=== PATIENT | female | born 1995 | race Caucasian/White ===

== ENCOUNTER 2016-07-18 05:49 | Emergency (ER) | payer OTHER ==
[~2016-07-18] VITALS: Ht 157.5 cm; Wt 63.0 kg
[2016-07-18 05:54] VITALS: Ht 157.5 cm; Wt 63.0 kg
[2016-07-18] MEDS ORDERED: morphine 4 MG/ML VIAL IV STA ×2 (06:23→08:18)
[2016-07-18] MEDS ORDERED: SOD CHLORIDE 0.9% 1,000 ML IV STA (06:23)
[2016-07-18] MEDS ORDERED: ONDANSETRON 4 MG INJ IV STA ×2 (06:23→08:18)
[2016-07-18] MEDS ORDERED: KETOROLAC 15 MG INJ IV STA ×2 (06:23→08:29)
--- NOTE | 2016-07-18 06:43 | ERD ---
ER Documentation Chief Complaint Date/Time DATE: 07/18/16 TIME: 06:42 Chief Complaint abdominal pain x2 days HPI This is a 21 year old female presenting to the emergency department complaining of lower abdominal pain for two days. Patient rates the pain as 8/10,constant and worsening. She states it started to feel like pressure. She denies nausea, vomiting. She states she had one episode of diarrhea since Monday, she has not had a bowel movement since then. She admits to having painful urination. Denies fever, hematuria, flank pain. Her last menstrual period was June 21. She has not taken any medications today, she states she took advil last night without relief. ROS All systems reviewed and are negative except as per history of present illness. Medications Home Meds Active Scripts Hydrocodone/Acetaminophen ([place] 5-325 Tablet) 1 Each Tablet, 1-2 TAB PO Q6H Y for PAIN, #20 TAB Prov:MAX PEACE PA-C 07/18/16 Allergies Allergies: Coded Allergies: Penicillins (Verified Allergy, Unknown, 07/18/16) PMhx/Soc Medical and Surgical Hx: pt denies Medical Hx, pt denies Surgical Hx History of Surgery: No Anesthesia Reaction: No Hx Neurological Disorder: No Hx Respiratory Disorders: No Hx Cardiac Disorders: No Hx Psychiatric Problems: No Hx Miscellaneous Medical Probl: No Hx Alcohol Use: No Hx Substance Use: No Hx Tobacco Use: No Smoking Status: Never smoker Physical Exam Vitals Vital Signs Date Time Temp Pulse Resp B/P Pulse Ox O2 Delivery O2 Flow Rate FiO2 07/18/16 08:30 98.1 71 16 100/61 100 Room Air 07/18/16 05:54 98.5 118 20 108/81 98 Physical Exam GENERAL: well-developed/well-nourished, in no apparent distress, non-toxic appearing HENT: NC/AT, moist mucous membranes EYES: Conjunctiva normal NECK: Supple, no lymphadenopathy PULM: CTA bilaterally, no rales, rhonchi, or wheezing heard CV: Normal S1S2, RRR, good capillary refill GI: Soft, non-distended, tender to palpation right and left pelvic region, generally mild tender to palpation in all quadrants Normal bowel sounds, no masses or organomegaly felt on exam No gross peritonitis, no bruits Negative Rovsing, negative Lofton, negative McBurney's point, Negative CVAT BACK: No masses EXT: No clubbing, cyanosis, or edema NEURO: Alert and Orientated SKIN: Intact, normal turgor PSYCH: Normal mood and mentation Result Diagram: 07/18/16 0640 07/18/16 0640 Results 24 hrs Laboratory Tests Test 07/18/16 06:40 Alanine Aminotransferase (ALT/SGPT) 22IU/L Albumin 4.5g/dl Albumin/Globulin Ratio 1.55 Alkaline Phosphatase 65IU/L Anion Gap 20 Aspartate Amino Transf (AST/SGOT) 17IU/L Basophils # 0.010^3/ul Basophils % 0.3% Blood Morphology Comment Blood Urea Nitrogen 21mg/dl Calcium Level 10.0mg/dl Carbon Dioxide Level 25mmol/L Chloride Level 103mmol/L Creatinine 0.98mg/dl Direct Bilirubin 0.00mg/dl Eosinophils # 0.310^3/ul Eosinophils % 2.3% Globulin 2.90g/dl Glucose Level 110mg/dl Hematocrit 39.7% Hemoglobin 13.5g/dl Indirect Bilirubin 0.7mg/dl Lipase 45U/L Lymphocytes # 1.810^3/ul Lymphocytes % 16.5% Mean Corpuscular Hemoglobin 31.1pg Mean Corpuscular Hemoglobin Concent 34.0g/dl Mean Corpuscular Volume 91.3fl Mean Platelet Volume 10.4fl Monocytes # 0.910^3/ul Monocytes % 8.1% Neutrophils # 7.910^3/ul Neutrophils % 72.8% Nucleated Red Blood Cells # 0.010^3/ul Nucleated Red Blood Cells % 0.0/100WBC Platelet Count 11757^3/UL Potassium Level 4.1mmol/L Red Blood Count 4.3510^6/ul Red Cell Distribution Width 13.3% Sodium Level 144mmol/L Total Bilirubin 0.7mg/dl Total Protein 7.4g/dl Urine Amorphous Urates MODERATE Urine Bacteria FEW Urine Bilirubin NEGATIVE Urine Clarity CLOUDY Urine Color LT. YELLOW Urine Glucose NEGATIVE% Urine Hemoglobin 1+ Urine Ketones NEGATIVE Urine Leukocyte Esterase NEGATIVE Urine Microscopic RBC 0-2/HPF Urine Microscopic WBC 0-2/HPF Urine Mucus FEW Urine Nitrite NEGATIVE Urine Specific [place] >=1.030 Urine Squamous Epithelial Cells FEW Urine Total Protein 2+ Urine Urobilinogen 0.2 E.U./dL Urine pH 5.5 White Blood Count 10.910^3/ul Current Medications Medications (Trade) Dose Ordered Sig/Anna Route PRN Reason Start Time Stop Time Status Last Admin Dose Admin Sodium Chloride (NS) 1,000 ml @ 1,000 mls/hr Q1H STAT IV 07/18/16 06:23 07/18/16 07:22 DC 07/18/16 06:48 Morphine Sulfate (morphine) 4 mg ONCE STAT IV 07/18/16 06:23 07/18/16 08:32 DC 07/18/16 06:48 Ondansetron HCl (Zofran Inj) 4 mg ONCE STAT IV 07/18/16 06:23 07/18/16 06:24 DC 07/18/16 06:47 Ketorolac Tromethamine (Toradol) 15 mg ONCE STAT IV 07/18/16 06:23 07/18/16 06:24 DC 07/18/16 06:48 Morphine Sulfate (morphine) 4 mg ONCE STAT IV 07/18/16 08:18 07/18/16 08:31 DC 07/18/16 08:27 Ondansetron HCl (Zofran Inj) 4 mg ONCE STAT IV 07/18/16 08:18 07/18/16 08:20 DC 07/18/16 08:27 Ketorolac Tromethamine (Toradol) 15 mg ONCE STAT IV 07/18/16 08:29 07/18/16 08:31 DC Morphine Sulfate (morphine) 2 mg ONCE ONCE IV 07/18/16 08:30 07/18/16 08:31 DC Procedures/MDM This is a 21 year old female presenting to the emergency department complaining of lower abdominal pain for two days, this is likely due to a ruptured ovarian cyst. Patient presented tachy at 118 but appears non-toxic and in no acute distress. IV access was established. Patient was given 1 L fluids, morphine, Zofran and Toradol. Lab work was drawn. CBC did not show any evidence of significant leukocytosis or anemia. CMP did not show any evidence of renal, liver, or electrolyte abnormalities. Lipase was normal. UA did not show any evidence of hemoglobin or urinary tract infection. CT of the abdomen and pelvis without contrast was done and radiologist stated - Moderate pelvic and right perihepatic hemoperitoneum. A 2 centimeter right adnexal cystic structure is suggested. The findings suggest a ruptured ovarian hemorrhagic cyst. It is unlikely the patient has bacteremia, appendicitis, ovarian torsion, and other acute abdominal conditions requiring surgery or admission.. I have reassessed patient and she felt better after the pain medications. I have given her a 4 mg more of morphine as well. I have consulted my supervising physician who states patient is suitable for discharge to follow-up with primary care physician. Information for was given. Patient is hemodynamically stable for discharge with strict precautions to return to the ER for any worsening signs or symptoms. Patient understands and agrees with plan Departure Diagnosis: Primary Impression: Abdominal pain Additional Impression: Ruptured ovarian cyst Condition: Stable MAX PEACE PA-C Jul 18, 2016 06:43
[2016-07-18 07:04] LABS: BASOPHILS % 0.3 % (0.0-2.0); EOSINOPHILS # 0.3 10^3/ul (0.0-0.5); EOSINOPHILS % 2.3 % (0.0-7.0); HEMATOCRIT 39.7 % (37.0-47.0); HEMOGLOBIN 13.5 g/dl (12.0-16.0); LYMPHOCYTES # 1.8 10^3/ul (0.8-2.9); LYMPHOCYTES % 16.5 % (15.0-51.0); MEAN CORPUSCULAR HEMOGLOBIN 31.1 pg (29.0-33.0); MEAN CORPUSCULAR VOLUME 91.3 fl (82.0-101.0); MEAN PLATELET VOLUME 10.4 fl (7.4-10.4); MONOCYTE # 0.9 10^3/ul (0.3-0.9); MONOCYTES % 8.1 % (0.0-11.0); NEUTROPHIL # 7.9 10^3/ul (1.6-7.5); NEUTROPHILS % 72.8 % (39.0-77.0); PLATELET COUNT 189 10^3/UL (140-440); RED BLOOD COUNT 4.35 10^6/ul (4.20-5.40); RED CELL DISTRIBUTION WIDTH 13.3 % (11.5-14.5); UNCORRECTED WBC 10.9 10^3/ul (4.8-10.8); WHITE BLOOD COUNT 10.9 10^3/ul (4.8-10.8)
[2016-07-18 07:05] LABS: ADD UMIC YES; URINE BILIRUBIN (Dip) NEGATIVE (NEGATIVE); URINE BLOOD (Dip) 1+ (NEGATIVE); URINE COLOR LT. YELLOW (YELLOW); URINE GLUCOSE (Dip) NEGATIVE (NEGATIVE); URINE KETONES (Dip) NEGATIVE (NEGATIVE); URINE LEUKOCYTE ESTERASE (Dip) NEGATIVE (NEGATIVE); URINE NITRITE (Dip) NEGATIVE (NEGATIVE); URINE TOTAL PROTEIN (Dip) 2+ (NEGATIVE); URINE UROBILINOGEN (Dip) 0.2 E.U./dL (0.1-1.0)
[2016-07-18 07:11] LABS: ALBUMIN 4.5 g/dl (3.3-4.9)
[2016-07-18 07:12] LABS: POTASSIUM 4.1 mmol/L (3.5-5.1)
[2016-07-18 07:14] LABS: ALBUMIN/GLOBULIN RATIO 1.55; BILIRUBIN,INDIRECT 0.7 mg/dl (0-1.1); BILIRUBIN,TOTAL 0.7 mg/dl (0.2-1.3); CREATININE 0.98 mg/dl (0.44-1.00); TOTAL PROTEIN 7.4 g/dl (6.1-8.1)
[2016-07-18 07:16] LABS: CONDITION 1
[2016-07-18 07:22] LABS: SQUAMOUS EPITHELIAL CELL,UR FEW; URINE RBCS 0-2 /HPF (0)
[2016-07-18 07:23] LABS: BACTERIA,URINE FEW; MUCUS,URINE FEW
--- NOTE | 2016-07-18 08:09 | RADRPT ---
PROCEDURE: CT Abdomen and Pelvis without contrast. CLINICAL INDICATION: Abdominal pain TECHNIQUE: CT scan of the abdomen and pelvis was performed on a multidetector high-resolution CT s canner without intravenous contrast. Coronal and sagittal reformatted images were obtained from the axial source images. Images were reviewed on a high-resolution PACS workstation. The total exam CTD I equals mGy and the total exam DLP equals mGy-cm. One or more of the following dose reduction techn iques were used: Automated exposure control, Adjustment of the mA and/or kV according to patient siz e, and/or use of iterative reconstruction technique. COMPARISON: None. FINDINGS: Evaluation of the solid organs is limited given the lack of intravenous contrast administration. The lung bases are clear. The liver, pancreas, spleen, and adrenals are grossly unremarkable. Perihepatic ascites is seen. The gallbladder is normal in caliber. No hydronephrosis. No renal or ureteral stone. No bowel obstruction. Normal-caliber appendix. Moderate pelvic and right perihepatic hemoperitoneum. A 2 centimeter right adnexal cystic structure is suggested. No evidence of pneumoperitoneum. IMPRESSION: Moderate pelvic and right perihepatic hemoperitoneum. A 2 centimeter right adnexal cystic structure is suggested. The findings suggest a ruptured ovarian hemorrhagic cyst. Consider pelvic ultrasound for further characterization if warranted. No evidence of bowel obstruction. Normal-caliber appendix. A call report was made to Dr. PEACE at 07/18/2016 8:08:48 AM. RPTAT: AA .Dustin Montemayor MD, Date Time Electronically viewed and signed by .Dustin Montemayor MD, on 07/18/2016 08:09 .T/
[2016-07-18] MEDS ORDERED: HYDR-906 PO (08:26)
[2016-07-18 08:30] VITALS: BP 100/61; PULSE 71; RESP 16; TEMP 98.1
[2016-07-18] MEDS ORDERED: morphine 2 MG INJ IV ONE (08:30)
== END 2016-07-18 08:46 | disposition home or self-care (01) ==
LOC: FTE 05:49
DX: R10.2 Pelvic and perineal pain (principal); N83.209 Unspecified ovarian cyst, unspecified side
CPT/HCPCS: 36415; 74176; 80053; 81001; 83690; 85025; 96374; 96375; 96376; J1885; J2270; J2405; J7030; Z7502; 81003

== ENCOUNTER 2016-11-27 18:56 | Emergency (ER) | payer OTHER ==
[~2016-11-27] VITALS: Ht 165.1 cm; Wt 61.0 kg
[~2016-11-27 18:56] MED LIST: HYDR-906 PO
[2016-11-27 19:02] VITALS: Ht 165.1 cm; Wt 61.0 kg
[2016-11-27] MEDS ORDERED: KETOROLAC 30 MG INJ IV STA (19:41)
--- NOTE | 2016-11-27 20:00 | ERD ---
ER Documentation Chief Complaint Date/Time DATE: 11/27/16 TIME: 19:55 Chief Complaint suprapubic pain x 3 hour PATIENT COMPANION HPI This is a 20-year-old female presenting to the emergency department for suprapubic pelvic pain 3 hours. Patient states pain started after sexual intercourse today. Currently patient states pelvic pain is 6/10 and feels like pressure. Denies dysuria, hematuria, urinary frequency or urinary urgency. No vaginal lesions or vaginal discharge. No vaginal bleeding. Last menstrual period was beginning of November according to patient. Patient states she was diagnosed with a ruptured ovarian cyst in July 2016. No vomiting or diarrhea. No constipation. No fevers or chills. Patient states each time she has intercourse she has intense pelvic cramping that is so severe that she "passes out." Patient currently denies any headache. Patient denies head trauma. No visual changes, loss of vision, diplopia, veil or curtain coming down over eye(s). ROS All systems reviewed and are negative except as per history of present illness. Medications Home Meds Active Scripts Ibuprofen* (Motrin*) 600 Mg Tab, 600 MG PO Q6, #15 TAB Prov:MARLINE SORIA NP 11/27/16 Hydrocodone/Acetaminophen ([place] 5-325 Tablet) 1 Each Tablet, 1 TAB PO Q6H Y for PAIN, #7 TAB Prov:MARLINE SORIA NP 11/27/16 Hydrocodone/Acetaminophen ([place] 5-325 Tablet) 1 Each Tablet, 1-2 TAB PO Q6H Y for PAIN, #20 TAB Prov:MAX PEACE PA-C 07/18/16 Allergies Allergies: Coded Allergies: Penicillins (Verified Allergy, Unknown, 07/18/16) PMhx/Soc Ruptured ovarian cyst- 07/2016 History of Surgery: No Anesthesia Reaction: No Hx Neurological Disorder: No Hx Respiratory Disorders: No Hx Cardiac Disorders: No Hx Psychiatric Problems: No Hx Miscellaneous Medical Probl: Yes Hx Alcohol Use: No Hx Substance Use: No Hx Tobacco Use: No Smoking Status: Never smoker Physical Exam Vitals Vital Signs Date Time Temp Pulse Resp B/P Pulse Ox O2 Delivery O2 Flow Rate FiO2 11/27/16 19:02 98.4 70 18 113/63 98 Physical Exam Const: No acute distress, alert Head: Atraumatic Eyes: Normal Conjunctiva ENT: Normal External Ears, Nose and Mouth. Neck: Full range of motion..~ No meningismus. Resp: Clear to auscultation bilaterally Cardio: Regular rate and rhythm, no murmurs Abd: Soft, non tender, non distended. Normal bowel sounds Skin: No petechiae or rashes Back: No midline or flank tenderness Ext: No cyanosis, or edema Neur: Awake and alert Psych: Normal Mood and Affect Result Diagram: 11/27/16192411/27/161924 Results 24 hrs Laboratory Tests Test 11/27/16 19:25 11/27/16 19:57 White Blood Count 9.110^3/ul Red Blood Count 4.6010^6/ul Hemoglobin 14.3g/dl Hematocrit 42.2% Mean Corpuscular Volume 91.7fl Mean Corpuscular Hemoglobin 31.1pg Mean Corpuscular Hemoglobin Concent 33.9g/dl Red Cell Distribution Width 11.8% Platelet Count 65437^3/UL Mean Platelet Volume 11.6fl Neutrophils % 71.1% Lymphocytes % 19.5% Monocytes % 7.0% Eosinophils % 1.9% Basophils % 0.2% Nucleated Red Blood Cells % 0.0/100WBC Neutrophils # 6.510^3/ul Lymphocytes # 1.810^3/ul Monocytes # 0.610^3/ul Eosinophils # 0.210^3/ul Basophils # 0.010^3/ul Nucleated Red Blood Cells # 0.010^3/ul Sodium Level 135mmol/L Potassium Level 3.7mmol/L Chloride Level 101mmol/L Carbon Dioxide Level 23mmol/L Anion Gap 15 Blood Urea Nitrogen 17mg/dl Creatinine 0.89mg/dl Glucose Level 84mg/dl Calcium Level 10.0mg/dl Total Bilirubin 0.5mg/dl Direct Bilirubin 0.00mg/dl Indirect Bilirubin 0.5mg/dl Aspartate Amino Transf (AST/SGOT) 22IU/L Alanine Aminotransferase (ALT/SGPT) 20IU/L Alkaline Phosphatase 55IU/L Total Protein 8.1g/dl Albumin 4.9g/dl Globulin 3.20g/dl Albumin/Globulin Ratio 1.53 Lipase 53U/L Urine Color YELLOW Urine Clarity SLIGHTLY CLOUDY Urine pH 5.0 Urine Specific [place] 1.030 Urine Ketones NEGATIVEmg/dL Urine Nitrite NEGATIVEmg/dL Urine Bilirubin NEGATIVEmg/dL Urine Urobilinogen NEGATIVEmg/dL Urine Leukocyte Esterase NEGATIVELeu/ul Urine Microscopic RBC 4/HPF Urine Microscopic WBC 1/HPF Urine Squamous Epithelial Cells FEW/HPF Urine Bacteria FEW/HPF Urine Hemoglobin 2+mg/dL Urine Glucose NEGATIVEmg/dL Urine Total Protein 2+mg/dl Current Medications Medications (Trade) Dose Ordered Sig/Anna Route PRN Reason Start Time Stop Time Status Last Admin Dose Admin Ketorolac Tromethamine (Toradol) 30 mg ONCE STAT IV 11/27/16 19:41 11/27/16 19:45 DC 11/27/16 19:54 Procedures/MDM [place] [id number] [facility] Main Line: [phone] DIAGNOSTIC IMAGING REPORT Patient: CAS AMES : 1995 Age: 20 Sex: F MR #: [id number] DOS: 11/27/161940 Ordering MD: MARLINE SORIA NP Location: [facility] Room/Bed: PROCEDURE: US Pelvis. CLINICAL INDICATION: Pelvic pain. TECHNIQUE: The pelvis was evaluated with transabdominal and transvaginal sonography in the axial and sagittal planes. COMPARISON: CT scan of the abdomen and pelvis dated 07/18/2016. FINDINGS: Uterus: 7.0 x 4.3 x 5.3 cm. Endometrium: 10.6 mm. Right ovary: 3.2 x 1.7 x 2.4 cm. Left ovary: 3.9 x 2.4 x 2.2 cm. Uterine masses: None. Ovarian masses: None. Color Doppler and pulsed Doppler sonography demonstrate normal flow to the ovaries. Other pelvic masses: None. Free fluid: None. IMPRESSION: 1. Normal pelvic ultrasound. [place] [id number] [facility] Main Line: [phone] DIAGNOSTIC IMAGING REPORT Patient: CAS AMES : 1995 Age: 20 Sex: F MR #: [id number] DOS: 11/27/161940 Ordering MD: MARLINE SORIA NP Location: [facility] Room/Bed: PROCEDURE: CT Abdomen and Pelvis without contrast. CLINICAL INDICATION: Abdominal and pelvic pain. TECHNIQUE: CT scan of the abdomen and pelvis without contrast was performed. Coronal and sagittal reformatted images were obtained from the axial source images. Images were reviewed on a high-resolution PACS workstation. Total exam DLP is 321.05 mGy-cm. CTDIvol is 6.63 mGy. One or more of the following dose reduction techniques were used: Automated exposure control, adjustment of the mA and/or kV according to patient size, use of iterative reconstruction technique. COMPARISON: Noncontrast CT scan of the abdomen and pelvis dated 07/18/2016 which demonstrated free fluid in the abdomen. FINDINGS: The lung bases are normal. There is no pleural effusion. The liver is normal in size and attenuation. There is no focal hepatic lesion. The gallbladder and bile ducts are normal. The spleen is normal in size. There is no focal splenic lesion. Both adrenals are normal with no enlargement or mass. The pancreas is unremarkable with no mass or evidence of pancreatitis. There is no renal mass or hydronephrosis. There is no renal calculus or ureteral calculus. The abdominal aorta is not dilated. There is no retroperitoneal lymphadenopathy or mass. There is no pelvic lymphadenopathy or mass. The bladder and distal ureters are normal. The periappendiceal region is unremarkable with no evidence of appendicitis. The appendix is well seen and appears normal. The bowel and mesentery are normal. There is no free fluid or free gas. The osseous structures are unremarkable with no fracture or lytic lesion. IMPRESSION: 1. No urinary tract calculus or hydronephrosis. 2. Normal appendix. 3. No free fluid. 4. Normal noncontrast CT scan of the abdomen and pelvis. [place] [id number] Radiology Main Line: [phone] DIAGNOSTIC IMAGING REPORT Patient: CAS AMES : 1995 Age: 20 Sex: F MR #: [id number] DOS: 11/27/161940 Ordering MD: MARLINE SORIA NP Location: [facility] Room/Bed: PROCEDURE: CT Brain without contrast. CLINICAL INDICATION: Loss of consciousness. TECHNIQUE: A CT of the brain without contrast was performed utilizing axial sections from the skull base through the vertex. The patient was scanned without intravenous contrast enhancement. Sagittal and coronal reformatted images were obtained using the data from the axial images. Total exam DLP is 990 2.49 mGy-cm. CTDIvol is 53.32 mGy. One or more of the following dose reduction techniques were used: Automated exposure control, adjustment of the mA and/or kV according to patient size, use of iterative reconstruction technique. COMPARISON: None available FINDINGS: There is normal viera-white matter differentiation. The ventricles and cisterns are normal. There is no intracranial hemorrhage or space-occupying lesion. There is no skull fracture or lytic lesion. IMPRESSION: 1. Normal noncontrast CT scan of the brain. 2. No intracranial hemorrhage. EKG: As reviewed by myself and Dr. Lockhart Rate/Rhythm: Normal sinus rhythm with heart rate 63 bpm QRS, ST, T-waves: No changes consistent w/ acute ischemia Impression: No evidence of ischemia or arrhythmia MDM: This is a 20-year-old female with past medical history for ruptured ovarian cyst presents emergency department for suprapubic pain 3 hours after intercourse. Patient states each time she has intercourse she has intense pelvic cramping 10/10. Patient states pain is severe and intense and starts immediately after intercourse and lasts for about 15 minutes. Patient states a large majority of the time, after intercourse she has such severe pain that she loses consciousness. Patient denies any head trauma. Currently no headache, visual changes, loss of vision or diplopia. Denies dysuria or hematuria. No urinary frequency or urgency. Pelvic ultrasound reviewed by ultrasound as normal. CT abdomen and pelvis no urinary tract calculus or hydronephrosis. Normal appendix. No free fluid. Normal noncontrast CT scan of the abdomen and pelvis. CT brain reviewed by radiologist as normal with no intracranial hemorrhage. The syncopal episode after intercourse is most likely a vasovagal response. Patient has normal vital signs and has not had any other syncopal episodes at any other times other than after intercourse during the time the patient is having intense, severe pain. EKG reviewed by Dr. Lockhart shows Normal sinus rhythm with HR 63 bpm. Differential diagnosis includes but not limited to acute appendicitis, diverticulitis, diverticulosis, bowel obstruction, constipation, infectious colitis, irritable bowel syndrome, inflammatory bowel disease, viral gastroenteritis, abdominal aortic aneurysm, food intolerance, celiac disease, UTI, pyelonephritis, nephrolithiasis, acute urinary retention, ovarian cyst, ruptured ovarian cyst, endometriosis or colorectal cancer. I doubt any emergent conditions such as appendicitis, diverticulitis, bowel obstruction, abdominal aortic aneurysm at this time due to normal vital signs and normal lab results. I doubt ovarian cyst or ruptured ovarian cyst based on results of pelvic ultrasound and CT abdomen and pelvis. I doubt intracranial pathology or acute AK based on CT brain results and EKG. Patient is appropriate for outpatient management and will be given prescription for ibuprofen and [place] 5mg/325mg #7. Instructed patient to follow-up with primary care provider in the next 2-3 days for reassessment and additional management. Return to ED for any high fever, chest pain, difficulty breathing, shortness breath, wheezing, vomiting, diarrhea, abdominal pain or any new or worsening symptoms. Patient verbalizes understanding. All questions answered at discharge. Departure Diagnosis: Primary Impression: Pelvic pain Condition: Stable MARLINE SORIA NP Nov 27, 2016 20:00
[2016-11-27 20:02] LABS: ADD SCAN DIFF NO
[2016-11-27 20:15] LABS: BASOPHILS % 0.2 % (0.0-2.0); EOSINOPHILS # 0.2 10^3/ul (0.0-0.5); EOSINOPHILS % 1.9 % (0.0-7.0); HEMATOCRIT 42.2 % (37.0-47.0); HEMOGLOBIN 14.3 g/dl (12.0-16.0); LYMPHOCYTES # 1.8 10^3/ul (0.8-2.9); LYMPHOCYTES % 19.5 % (15.0-51.0); MEAN CORPUSCULAR HEMOGLOBIN 31.1 pg (29.0-33.0); MEAN CORPUSCULAR HGB CONC 33.9 g/dl (32.0-37.0); MEAN CORPUSCULAR VOLUME 91.7 fl (82.0-101.0); MEAN PLATELET VOLUME 11.6 fl (7.4-10.4); MONOCYTE # 0.6 10^3/ul (0.3-0.9); NEUTROPHIL # 6.5 10^3/ul (1.6-7.5); NEUTROPHILS % 71.1 % (39.0-77.0); PLATELET COUNT 193 10^3/UL (140-415); RED CELL DISTRIBUTION WIDTH 11.8 % (11.5-14.5); WHITE BLOOD COUNT 9.1 10^3/ul (4.8-10.8)
--- NOTE | 2016-11-27 20:19 | RADRPT ---
PROCEDURE: US Pelvis. CLINICAL INDICATION: Pelvic pain. TECHNIQUE: The pelvis was evaluated with transabdominal and transvaginal sonography in the axial a nd sagittal planes. COMPARISON: CT scan of the abdomen and pelvis dated 07/18/2016. FINDINGS: Uterus: 7.0 x 4.3 x 5.3 cm. Endometrium: 10.6 mm. Right ovary: 3.2 x 1.7 x 2.4 cm. Left ovary: 3.9 x 2.4 x 2.2 cm. Uterine masses: None. Ovarian masses: None. Color Doppler and pulsed Doppler sonography demonstrate normal flow to the ova janessa. Other pelvic masses: None. Free fluid: None. IMPRESSION: 1. Normal pelvic ultrasound. RPTAT: QQ .Chun Valero MD, Date Time Electronically viewed and signed by .Chun Valero MD, on 11/27/2016 20:18 .R/
--- NOTE | 2016-11-27 20:27 | RADRPT ---
PROCEDURE: CT Brain without contrast. CLINICAL INDICATION: Loss of consciousness. TECHNIQUE: A CT of the brain without contrast was performed utilizing axial sections from the skul l base through the vertex. The patient was scanned without intravenous contrast enhancement. Sagitta l and coronal reformatted images were obtained using the data from the axial images. Total exam DLP is 990 2.49 mGy-cm. CTDIvol is 53.32 mGy. One or more of the following dose reduction techniques were used: Automated exposure control, adjustment of the mA and/or kV according to patient size, use of iterative reconstruction technique. COMPARISON: None available FINDINGS: There is normal viera-white matter differentiation. The ventricles and cisterns are normal. There is no intracranial hemorrhage or space-occupying lesion. There is no skull fracture or lytic lesion. IMPRESSION: 1. Normal noncontrast CT scan of the brain. 2. No intracranial hemorrhage. RPTAT: QQ .Chun Valero MD, MD Date Time Electronically viewed and signed by .Chun Valero MD, MD on 11/27/2016 20:26 .R/
--- NOTE | 2016-11-27 20:30 | RADRPT ---
PROCEDURE: CT Abdomen and Pelvis without contrast. CLINICAL INDICATION: Abdominal and pelvic pain. TECHNIQUE: CT scan of the abdomen and pelvis without contrast was performed. Coronal and sagittal reformatted images were obtained from the axial source images. Images were reviewed on a high-resolu [employer] HR PACS workstation. Total exam DLP is 321.05 mGy-cm. CTDIvol is 6.63 mGy. One or more of the fo [facility] dose reduction techniques were used: Automated exposure control, adjustment of the mA and/or kV according to patient size, use of iterative reconstruction technique. COMPARISON: Noncontrast CT scan of the abdomen and pelvis dated 07/18/2016 which demonstrated free fluid in the abdomen. FINDINGS: The lung bases are normal. There is no pleural effusion. The liver is normal in size and attenuation. There is no focal hepatic lesion. The gallbladder and bile ducts are normal. The spleen is normal in size. There is no focal splenic lesion. Both adrenals are normal with no enlargement or mass. The pancreas is unremarkable with no mass or evidence of pancreatitis. There is no renal mass or hydronephrosis. There is no renal calculus or ureteral calculus. The abdominal aorta is not dilated. There is no retroperitoneal lymphadenopathy or mass. There is no pelvic lymphadenopathy or mass. The bladder and distal ureters are normal. The periappendiceal region is unremarkable with no evidence of appendicitis. The appendix is well se en and appears normal. The bowel and mesentery are normal. There is no free fluid or free gas. The osseous structures are unremarkable with no fracture or lytic lesion. IMPRESSION: 1. No urinary tract calculus or hydronephrosis. 2. Normal appendix. 3. No free fluid. 4. Normal noncontrast CT scan of the abdomen and pelvis. RPTAT: QQ .Chun Valero MD, MD Date Time Electronically viewed and signed by .Chun Valero MD, MD on 11/27/2016 20:30 .R/
[2016-11-27 20:35] LABS: ALBUMIN 4.9 g/dl (3.3-4.9); ALBUMIN/GLOBULIN RATIO 1.53; BILIRUBIN,INDIRECT 0.5 mg/dl (0-1.1); BILIRUBIN,TOTAL 0.5 mg/dl (0.2-1.3); CREATININE 0.89 mg/dl (0.44-1.00); POTASSIUM 3.7 mmol/L (3.5-5.1); TOTAL PROTEIN 8.1 g/dl (6.1-8.1)
[2016-11-27 21:01] LABS: ADD UMIC YES; UR ASCORBIC ACID NEGATIVE (NEGATIVE); UR BACTERIA FEW /HPF (NONE SEEN); UR BILIRUBIN (Dip) NEGATIVE (NEGATIVE); UR BLOOD (Dip) 2+ mg/dL (NEGATIVE); UR CLARITY SLIGHTLY CLOUDY (CLEAR); UR COLOR YELLOW (YELLOW); UR GLUCOSE (Dip) NEGATIVE (NEGATIVE); UR KETONES (Dip) NEGATIVE (NEGATIVE); UR LEUKOCYTE ESTERASE (Dip) NEGATIVE Leu/ul (NEGATIVE); UR NITRITE (Dip) NEGATIVE (NEGATIVE); UR RBC 4 /HPF (0-5); UR SQUAMOUS EPITHELIAL CELL FEW /HPF (FEW); UR TOTAL PROTEIN (Dip) 2+ mg/dl (NEGATIVE); UR UROBILINOGEN (Dip) NEGATIVE (NEGATIVE)
[2016-11-27] MEDS ORDERED: IBUP-1542 PO (21:23)
[2016-11-27] MEDS ORDERED: HYDR-906 PO (21:23)
[2016-11-27 22:01] VITALS: BP 115/67; PULSE 68; RESP 16; TEMP 98.7
== END 2016-11-27 22:02 | disposition home or self-care (01) ==
LOC: E/R 18:56 → FTE 22:02
DX: R10.2 Pelvic and perineal pain (principal); R40.4 Transient alteration of awareness
CPT/HCPCS: 36415; 70450; 74176; 76830; 76856; 80053; 81001; 83690; 85025; 87086; 93005; 96374; J1885; Z7502

== ENCOUNTER 2017-05-16 08:13 | Inpatient (IN) | payer OTHER ==
[~2017-05-16] VITALS: Ht 157.5 cm; Wt 55.0 kg
[~2017-05-16 08:13] MED LIST changes: +IBUP-1542 PO
[2017-05-16] MEDS ORDERED: morphine 4 MG/ML VIAL IV STA (08:47)
[2017-05-16] MEDS ORDERED: ONDANSETRON 4 MG INJ IV STA (08:47)
[2017-05-16 09:52] LABS: ABNORMAL IP MESSAGE 1; HEMATOCRIT 40.2 % (37.0-47.0); HEMOGLOBIN 13.4 g/dl (12.0-16.0); MEAN CORPUSCULAR HEMOGLOBIN 31.2 pg (29.0-33.0); MEAN CORPUSCULAR HGB CONC 33.3 g/dl (32.0-37.0); MEAN CORPUSCULAR VOLUME 93.7 fl (82.0-101.0); MEAN PLATELET VOLUME 11.8 fl (7.4-10.4); PLATELET COUNT 87 10^3/UL (140-415); RED BLOOD COUNT 4.29 10^6/ul (4.20-5.40); RED CELL DISTRIBUTION WIDTH 11.9 % (11.5-14.5)
[2017-05-16 09:58] LABS: POSITIVE DIFF @See below
[2017-05-16 10:08] LABS: ADD UMIC YES; UR ASCORBIC ACID 40 mg/dL (NEGATIVE); UR BACTERIA FEW /HPF (NONE SEEN); UR BILIRUBIN (Dip) NEGATIVE (NEGATIVE); UR BLOOD (Dip) NEGATIVE (NEGATIVE); UR CLARITY SLIGHTLY CLOUDY (CLEAR); UR COLOR YELLOW (YELLOW); UR GLUCOSE (Dip) NEGATIVE (NEGATIVE); UR KETONES (Dip) 2+ mg/dL (NEGATIVE); UR LEUKOCYTE ESTERASE (Dip) TRACE Leu/ul (NEGATIVE); UR MUCUS MODERATE /HPF (NONE SEEN); UR NITRITE (Dip) NEGATIVE (NEGATIVE); UR RBC 16 /HPF (0-5); UR SPECIFIC GRAVITY (Dip) 1.033 (1.003-1.030); UR SQUAMOUS EPITHELIAL CELL FEW /HPF (FEW); UR TOTAL PROTEIN (Dip) 3+ mg/dl (NEGATIVE); UR UROBILINOGEN (Dip) 1+ mg/dL (NEGATIVE)
[2017-05-16 10:10] LABS: ALBUMIN 4.1 g/dl (3.3-4.9); ALBUMIN/GLOBULIN RATIO 1.28; BILIRUBIN,INDIRECT 0.4 mg/dl (0-1.1); BILIRUBIN,TOTAL 0.4 mg/dl (0.2-1.3); CALCIUM 9.3 mg/dl (8.4-10.2); CREATININE 0.72 mg/dl (0.44-1.00); POTASSIUM 3.6 mmol/L (3.5-5.1); TOTAL PROTEIN 7.3 g/dl (6.1-8.1)
--- NOTE | 2017-05-16 10:25 | RADRPT ---
PROCEDURE: CT ABDOMEN AND PELVIS WITHOUT CONTRAST. CLINICAL INDICATION: Generalized abdominal pain TECHNIQUE: CT scan of the abdomen and pelvis without contrast was performed on a multidetector hig h-resolution CT scanner. The patient was scanned without intravenous contrast. Coronal and sagittal reformatted images were obtained from the axial source images. Images were reviewed on a high-resol [employer] PACS workstation. The total exam CTDI equals 6.4 mGy and the total exam DLP equals 322 mGy-cm. One or more of the following dose reduction techniques were used: Automated exposure control. Adjustment of the mA and/or kV according to patient size. Use of iterative reconstruction technique. DICOM images are available COMPARISON: CT 11/27/2016 FINDINGS: CT abdomen: The lung bases are clear. The heart size is within normal limits. There is no significant pericardia l effusion. Hepatic morphology is within normal limits. No gross contour deforming masses. The gallbladder is wi thin normal limits. No evidence of intrahepatic or extrahepatic biliary dilatation. The spleen is in the upper limits of normal in size. The pancreas is within normal limits. Both adrenal glands are within normal limits. Both kidneys are in normal anatomic position. No evidence of obstruction or hydronephrosis. No gross renal/ureteric calculi. The visualized GI tract demonstrate normal caliber loops of small and large bowel. No evidence of sami wel obstruction. The unenhanced aorta is unremarkable. No significant retroperitoneal lymphadenopathy. CT pelvis: The bladder is within normal limits. The uterus appears to within limits. There are bilateral cystic adnexa, likely physiologic within normal limits. The rectosigmoid colon demonstrates stool. No sign ificant free fluid. No significant pelvic lymphadenopathy. The visualized osseous structures appears to be within normal limits. IMPRESSION: 1. No evidence of acute intra-abdominal/pelvic inflammatory process. No evidence of bowel obstructio n. The appendix is within normal limits. 2. No free fluid or free air. No gross focal fluid collections. 3. The uterus appears to be within normal limits. Bilateral cystic adnexa, probably physiologic with in normal limits. 4. Otherwise, unremarkable unenhanced CT scan of the abdomen/pelvis. RPTAT: AAPP Jasony Lue, Physician Date Time Electronically viewed and signed by Sukhwinder Maynard Physician on 05/16/2017 10:25 JL/
[2017-05-16 10:29] LABS: ANISOCYTOSIS 1+ (0-0); MONOCYTES % (M) 11 % (0-11); PLATELET ESTIMATE DECREASED
[2017-05-16 10:56] LABS: WHITE BLOOD COUNT 2.2 10^3/ul (4.8-10.8)
--- NOTE | 2017-05-16 11:58 | ERD ---
ER Documentation Chief Complaint Chief Complaint fever x 3 days with abd x last night, denies N/V/D HPI This is a 21-year-old female presents the emergency department today complaining of severe abdominal pain for the past couple of days. States that she does have some pain with urination for the past few days. States she took Advil at 5 this morning. States that she has not had any vomiting or diarrhea. States that she had a fever yesterday. States she has had some weight loss. ROS All systems reviewed and are negative except as per history of present illness. Medications Home Meds Active Scripts Ibuprofen* (Motrin*) 600 Mg Tab, 600 MG PO Q6, #15 TAB Prov:MARLINE SORIA NP 11/27/16 Hydrocodone/Acetaminophen ([place] 5-325 Tablet) 1 Each Tablet, 1 TAB PO Q6H Y for PAIN, #7 TAB Prov:MARLINE SORIA NP 11/27/16 Hydrocodone/Acetaminophen ([place] 5-325 Tablet) 1 Each Tablet, 1-2 TAB PO Q6H Y for PAIN, #20 TAB Prov:MAX PEACE PA-C 07/18/16 Allergies Allergies: Coded Allergies: Penicillins (Verified Allergy, Unknown, 05/16/17) PMhx/Soc Medical and Surgical Hx: pt denies Medical Hx, pt denies Surgical Hx History of Surgery: No Anesthesia Reaction: No Hx Neurological Disorder: No Hx Respiratory Disorders: No Hx Cardiac Disorders: No Hx Psychiatric Problems: No Hx Miscellaneous Medical Probl: Yes Hx Alcohol Use: No Hx Substance Use: No Hx Tobacco Use: No Smoking Status: Never smoker Physical Exam Vitals Vital Signs Date Time Temp Pulse Resp B/P Pulse Ox O2 Delivery O2 Flow Rate FiO2 05/16/17 08:16 98.2 92 20 116/61 96 Physical Exam Const: NAD Head: Atraumatic Eyes: Normal Conjunctiva ENT: Normal External Ears, Nose and Mouth. Neck: Full range of motion..~ No meningismus. Resp: Clear to auscultation bilaterally Cardio: Regular rate and rhythm, no murmurs Abd: Soft, diffuse abdominal tenderness, non distended. Normal bowel sounds Skin: No petechiae or rashes Back: No midline or flank tenderness Ext: No cyanosis, or edema Neur: Awake and alert Psych: Normal Mood and Affect Result Diagram: 05/16/1793705/16/17 0938 Results 24 hrs Laboratory Tests Test 05/16/17 08:55 05/16/17 09:38 Urine Color YELLOW Urine Clarity SLIGHTLY CLOUDY Urine pH 5.0 Urine Specific [place] 1.033 Urine Ketones 2+mg/dL Urine Nitrite NEGATIVEmg/dL Urine Bilirubin NEGATIVEmg/dL Urine Urobilinogen 1+mg/dL Urine Leukocyte Esterase TRACELeu/ul Urine Microscopic RBC 16/HPF Urine Microscopic WBC 12/HPF Urine Squamous Epithelial Cells FEW/HPF Urine Bacteria FEW/HPF Urine Mucus MODERATE/HPF Urine Hemoglobin NEGATIVEmg/dL Urine Glucose NEGATIVEmg/dL Urine Total Protein 3+mg/dl White Blood Count 2.210^3/ul Red Blood Count 4.2910^6/ul Hemoglobin 13.4g/dl Hematocrit 40.2% Mean Corpuscular Volume 93.7fl Mean Corpuscular Hemoglobin 31.2pg Mean Corpuscular Hemoglobin Concent 33.3g/dl Red Cell Distribution Width 11.9% Platelet Count 8710^3/UL Mean Platelet Volume 11.8fl Neutrophils % % Segmented Neutrophils % (Manual) 49% Band Neutrophils % (Manual) 33% Lymphocytes % % Lymphocytes % (Manual) 7% Monocytes % % Monocytes % (Manual) 11% Eosinophils % % Basophils % % Nucleated Red Blood Cells % 0.0/100WBC Neutrophils # 10^3/ul Neutrophils # (Manual) 1.110^3/ul Band Neutrophils # 0.710^3/ul Absolute Lymphocytes (Manual) 0.110^3/ul Lymphocytes # 10^3/ul Monocytes # 10^3/ul Absolute Monocytes (Manual) 0.210^3/ul Eosinophils # 10^3/ul Basophils # 10^3/ul Nucleated Red Blood Cells # 10^3/ul Platelet Estimate DECREASED Anisocytosis 1+ Macrocytosis 1+ Sodium Level 140mmol/L Potassium Level 3.6mmol/L Chloride Level 102mmol/L Carbon Dioxide Level 26mmol/L Anion Gap 16 Blood Urea Nitrogen 14mg/dl Creatinine 0.72mg/dl Glucose Level 84mg/dl Calcium Level 9.3mg/dl Total Bilirubin 0.4mg/dl Direct Bilirubin 0.00mg/dl Indirect Bilirubin 0.4mg/dl Aspartate Amino Transf (AST/SGOT) 27IU/L Alanine Aminotransferase (ALT/SGPT) 35IU/L Alkaline Phosphatase 51IU/L Total Protein 7.3g/dl Albumin 4.1g/dl Globulin 3.20g/dl Albumin/Globulin Ratio 1.28 Lipase 36U/L Current Medications Medications (Trade) Dose Ordered Sig/Anna Route PRN Reason Start Time Stop Time Status Last Admin Dose Admin Morphine Sulfate (morphine) 4 mg ONCE STAT IV 05/16/17 08:47 05/16/17 08:49 DC 05/16/17 09:10 Ondansetron HCl (Zofran Inj) 4 mg ONCE STAT IV 05/16/17 08:47 05/16/17 08:49 DC 05/16/17 09:10 Hydromorphone HCl (Dilaudid) 1 mg ONCE STAT IV 05/16/17 12:02 05/16/17 12:03 DC DIAGNOSTIC IMAGING REPORT Patient: CAS AMES : 1995 Age: 21 Sex: F MR #: [id number] DOS: 05/16/17916 Ordering MD: ROQUE SERVIN PA-C Location: [facility] Room/Bed: PROCEDURE: CT ABDOMEN AND PELVIS WITHOUT CONTRAST. CLINICAL INDICATION: Generalized abdominal pain TECHNIQUE: CT scan of the abdomen and pelvis without contrast was performed on a multidetector high-resolution CT scanner. The patient was scanned without intravenous contrast. Coronal and sagittal reformatted images were obtained from the axial source images. Images were reviewed on a high-resolution PACS workstation. The total exam CTDI equals 6.4 mGy and the total exam DLP equals 322 mGy-cm. One or more of the following dose reduction techniques were used: Automated exposure control. Adjustment of the mA and/or kV according to patient size. Use of iterative reconstruction technique. DICOM images are available COMPARISON: CT 11/27/2016 FINDINGS: CT abdomen: The lung bases are clear. The heart size is within normal limits. There is no significant pericardial effusion. Hepatic morphology is within normal limits. No gross contour deforming masses. The gallbladder is within normal limits. No evidence of intrahepatic or extrahepatic biliary dilatation. The spleen is in the upper limits of normal in size. The pancreas is within normal limits. Both adrenal glands are within normal limits. Both kidneys are in normal anatomic position. No evidence of obstruction or hydronephrosis. No gross renal/ureteric calculi. The visualized GI tract demonstrate normal caliber loops of small and large bowel. No evidence of bowel obstruction. The unenhanced aorta is unremarkable. No significant retroperitoneal lymphadenopathy. CT pelvis: The bladder is within normal limits. The uterus appears to within limits. There are bilateral cystic adnexa, likely physiologic within normal limits. The rectosigmoid colon demonstrates stool. No significant free fluid. No significant pelvic lymphadenopathy. The visualized osseous structures appears to be within normal limits. IMPRESSION: 1. No evidence of acute intra-abdominal/pelvic inflammatory process. No evidence of bowel obstruction. The appendix is within normal limits. 2. No free fluid or free air. No gross focal fluid collections. 3. The uterus appears to be within normal limits. Bilateral cystic adnexa, probably physiologic within normal limits. 4. Otherwise, unremarkable unenhanced CT scan of the abdomen/pelvis. RPTAT: AAPP Physician Cici Date Time Electronically viewed and signed by Physician Cici on 05/16/2017 10:25 JL/ CC: ROQUE SERVIN PA-C Procedures/[facility] This a 21-year-old female presents the emergency department today complaining of abdominal pain for the past 3 days well as chills and subjective fevers. She is afebrile at this time however she has diffuse abdominal pain on physical exam and therefore did obtain laboratory workup as well as imaging. Laboratory workup shows a white blood cell count of 2.2. She is not anemic. His thrombocytopenia. Patient does have 44% band neutrophils. Her liver enzymes are within normal limits. Her glucose is within normal limits. Her lipase is within normal limits. CT abdomen pelvis shows no evidence of acute intra-abdominal pelvic inflammatory process. There is no evidence of bowel obstruction. The appendix is within normal limits. There is no free fluid or free air. Uterus appears to be within normal limits. There are bilateral cystic adnexa probably physiologic and within normal limits. test is negative. UA shows trace leukocyte esterase and 12 microscopic white blood cells otherwise unremarkable. Given Zofran and morphine here in the emergency department. Patient continues to complain of pain and was therefore given Dilaudid after speaking to Dr. Dasilva out the patient given her abnormal laboratory work as well as report of 15 pounds of weight loss in the past month. Dr. Dasilva feels it would be beneficial to admit the patient and have her be seen by hematology here in the middle. I have explained the results to the patient. Patient agreed to be admitted to the hospital. Any further orders placed will be placed by Dr. Dasilva or the admitting physician Symptoms at this time is consistent with abdominal pain of uncertain etiology and thrombocytopenia. Departure Diagnosis: Primary Impression: Abdominal pain Abdominal location: generalized Qualified Code: R10.84 - Generalized abdominal pain Additional Impression: Thrombocytopenia Condition: ROQUE Montesinos PA-C May 16, 2017 11:58
[2017-05-16] MEDS ORDERED: HYDROmorphONE 1 MG/ML SYG IV STA (12:02)
[2017-05-16] MEDS ORDERED: SOD CHLORIDE 0.9% 1,000 ML IV ONE (12:30)
[2017-05-16] MEDS ORDERED: ACETAMINOPHEN 325 MG TAB PO PRN (13:30)
[2017-05-16] MEDS ORDERED: ONDANSETRON 4 MG INJ IV PRN (13:30)
--- NOTE | 2017-05-16 14:28 | HP ---
Date/Time of Note Date/Time of Note DATE: 05/16/17 TIME: 13:54 Assessment/Plan VTE Prophylaxis VTE Prophylaxis Intervention: ambulation Assessment/Plan Assessment/Plan 21 yo f who presents with fatigue and lower abd pain x2-3days admitted and managed for the followin. Severe Neutropenia and Thrombocytopenia Cause unclear, may be 2/2 overwhelming infection versus other cause Prozac use is also associated with aplasia, however patient has no anemia 2. UTI with fever 3. Chronic stable depression on prozac x 2months PLAN: Patient to be admitted to [facility] for further management ANC is greater than 1000 and as such there is no indication for neutropenic precautions at this time She will be empirically started on broad-spectrum antibiotics for urinary tract infection, we will rule out an influenza infection, and obtain blood as well as urine cultures to enable us to tailor her antibiotics. Oncology consultation has been obtained for neutropenia and thrombocytopenia. We will await recommendations. As present has been known to cause bleeding disorders, we will hold Prozac for now given the patient has no anemia, until oncology review. We will treat his depression symptoms as needed. We will provide supportive care with antipyretics and pain control if indicated , and further interventions will depend on her clinical course. This plan of care has been discussed with the patient and her mother, questions have been answered. HPI/ROS Admit Date/Time Admit Date/Time 05/16/17 Hx of Present Illness This is a 21-year-old female with past medical history only of depression recently started on Prozac about 2 months ago who presents to emergency room today with a 2-3 day history of not feeling well. Patient reports significant lethargy, subjective fevers, chills, nausea without vomiting. She has also been having some dysuria. She however denies hematuria, denies hematochezia or diarrhea, denies flank pain. Preliminary emergency room evaluation revealed significant neutropenia as well as some thrombocytopenia, and patient is being admitted for further workup. Also patient has been noted to have a fever of 103 in the emergency room. ROS 12 point review if systems was done and pertinent findings are as noted. Constitutional: fatigue, nausea Eyes: no complaints ENT: no complaints Respiratory: no complaints Cardiovascular: no complaints Gastrointestinal: pain Genitourinary: dysuria Musculoskeletal: no complaints Skin: bruising Endocrine: other (dysuria) PMH/Family/Social Past Medical History * depression Past Surgical History Past Surgical Hx: no surgical history Family History Significant Family History: cancer (leukaemia in maternal great grandmother), diabetes Social History Alcohol Use: none Smoking Status: Never smoker Drug Use: marijuana Exam/Review of Systems Vital Signs Vitals Vital Signs Date Time Temp Pulse Resp B/P Pulse Ox O2 Delivery O2 Flow Rate FiO2 05/16/17 13:04 100.2 94 18 101/59 98 Exam Constitutional: alert, other (acutely ill looking) Psych: anxiety Head: normocephalic Eyes: PERRL, No icteric ENMT: mucosa pink and moist Respiratory: clear to auscultation, normal air movement Cardiovascular: nl pulses, regular rate and rhythm Gastrointestinal: bowel sounds, soft, tender (suprapubic tenderness with mild guarding) Genitourinary - Female: other Musculoskeletal: nl extremities to inspection Skin: ecchymosis ( (very mild under her eyes bilaterally)) Lymph: other (no palpable neck lymphnodes) Labs Result Diagram: 05/16/17 0938 05/16/17 0938 Procedures Procedures Laboratory Tests Test 05/16/17 08:55 05/16/17 09:38 Urine Color YELLOW Urine Clarity SLIGHTLY CLOUDY Urine pH 5.0 Urine Specific [place] 1.033 Urine Ketones 2+mg/dL Urine Nitrite NEGATIVEmg/dL Urine Bilirubin NEGATIVEmg/dL Urine Urobilinogen 1+mg/dL Urine Leukocyte Esterase TRACELeu/ul Urine Microscopic RBC 16/HPF Urine Microscopic WBC 12/HPF Urine Squamous Epithelial Cells FEW/HPF Urine Bacteria FEW/HPF Urine Mucus MODERATE/HPF Urine Hemoglobin NEGATIVEmg/dL Urine Glucose NEGATIVEmg/dL Urine Total Protein 3+mg/dl White Blood Count 2.210^3/ul Red Blood Count 4.2910^6/ul Hemoglobin 13.4g/dl Hematocrit 40.2% Mean Corpuscular Volume 93.7fl Mean Corpuscular Hemoglobin 31.2pg Mean Corpuscular Hemoglobin Concent 33.3g/dl Red Cell Distribution Width 11.9% Platelet Count 8710^3/UL Mean Platelet Volume 11.8fl Neutrophils % % Segmented Neutrophils % (Manual) 49% Band Neutrophils % (Manual) 33% Lymphocytes % % Lymphocytes % (Manual) 7% Monocytes % % Monocytes % (Manual) 11% Eosinophils % % Basophils % % Nucleated Red Blood Cells % 0.0/100WBC Neutrophils # 10^3/ul Neutrophils # (Manual) 1.110^3/ul Band Neutrophils # 0.710^3/ul Absolute Lymphocytes (Manual) 0.110^3/ul Lymphocytes # 10^3/ul Monocytes # 10^3/ul Absolute Monocytes (Manual) 0.210^3/ul Eosinophils # 10^3/ul Basophils # 10^3/ul Nucleated Red Blood Cells # 10^3/ul Platelet Estimate DECREASED Anisocytosis 1+ Macrocytosis 1+ Sodium Level 140mmol/L Potassium Level 3.6mmol/L Chloride Level 102mmol/L Carbon Dioxide Level 26mmol/L Anion Gap 16 Blood Urea Nitrogen 14mg/dl Creatinine 0.72mg/dl Glucose Level 84mg/dl Calcium Level 9.3mg/dl Total Bilirubin 0.4mg/dl Direct Bilirubin 0.00mg/dl Indirect Bilirubin 0.4mg/dl Aspartate Amino Transf (AST/SGOT) 27IU/L Alanine Aminotransferase (ALT/SGPT) 35IU/L Alkaline Phosphatase 51IU/L Total Protein 7.3g/dl Albumin 4.1g/dl Globulin 3.20g/dl Albumin/Globulin Ratio 1.28 Lipase 36U/L Current Medications Medications (Trade) Dose Ordered Sig/Anna Route PRN Reason Start Time Stop Time Status Last Admin Dose Admin Morphine Sulfate (morphine) 4 mg ONCE STAT IV 05/16/17 08:47 05/16/17 08:49 DC 05/16/17 09:10 4 MG Ondansetron HCl (Zofran Inj) 4 mg ONCE STAT IV 05/16/17 08:47 05/16/17 08:49 DC 05/16/17 09:10 4 MG Hydromorphone HCl 1 mg 1 mg ONCE STAT IV 05/16/17 12:02 05/16/17 12:03 DC 05/16/17 12:18 1 MG Sodium Chloride (NS) 1,000 ml @ 1,000 mls/hr Q1H ONCE IV 05/16/17 12:30 05/16/17 13:29 DC 05/16/17 12:19 1,000 MLS/HR Ondansetron HCl (Zofran Inj) 4 mg BRIDGE ORDER PRN IV NAUSEA AND/OR VOMITING 05/16/17 13:30 05/17/17 13:29 Acetaminophen (Tylenol Tab) 650 mg ER BRIDGE PRN PO MILD PAIN/FEVER 05/16/17 13:30 05/17/17 13:29 05/16/17 13:43 650 MG PROCEDURE: CT ABDOMEN AND PELVIS WITHOUT CONTRAST. CLINICAL INDICATION: Generalized abdominal pain TECHNIQUE: CT scan of the abdomen and pelvis without contrast was performed on a multidetector high-resolution CT scanner. The patient was scanned without intravenous contrast. Coronal and sagittal reformatted images were obtained from the axial source images. Images were reviewed on a high-resolution PACS workstation. The total exam CTDI equals 6.4 mGy and the total exam DLP equals 322 mGy-cm. One or more of the following dose reduction techniques were used: Automated exposure control. Adjustment of the mA and/or kV according to patient size. Use of iterative reconstruction technique. DICOM images are available COMPARISON: CT 11/27/2016 FINDINGS: CT abdomen: The lung bases are clear. The heart size is within normal limits. There is no significant pericardial effusion. Hepatic morphology is within normal limits. No gross contour deforming masses. The gallbladder is within normal limits. No evidence of intrahepatic or extrahepatic biliary dilatation. The spleen is in the upper limits of normal in size. The pancreas is within normal limits. Both adrenal glands are within normal limits. Both kidneys are in normal anatomic position. No evidence of obstruction or hydronephrosis. No gross renal/ureteric calculi. The visualized GI tract demonstrate normal caliber loops of small and large bowel. No evidence of bowel obstruction. The unenhanced aorta is unremarkable. No significant retroperitoneal lymphadenopathy. CT pelvis: The bladder is within normal limits. The uterus appears to within limits. There are bilateral cystic adnexa, likely physiologic within normal limits. The rectosigmoid colon demonstrates stool. No significant free fluid. No significant pelvic lymphadenopathy. The visualized osseous structures appears to be within normal limits. IMPRESSION: 1. No evidence of acute intra-abdominal/pelvic inflammatory process. No evidence of bowel obstruction. The appendix is within normal limits. 2. No free fluid or free air. No gross focal fluid collections. 3. The uterus appears to be within normal limits. Bilateral cystic adnexa, probably physiologic within normal limits. 4. Otherwise, unremarkable unenhanced CT scan of the abdomen/pelvis. RPTAT: AAPP Physician Cici Date Time Electronically viewed and signed by Sukhwinder Maynard Physician on 05/16/2017 10:25 JL/ CC: ROQUE SERVIN PA-C, [place] M. May 16, 2017 14:05
[2017-05-16] MEDS: LEVOFLOXACIN 500MG/D5W (PMX) 100 ML IVPB SCH (14:39)
--- NOTE | 2017-05-16 14:59 | EN ---
Date/Time of Note Date/Time of Note DATE: 05/16/17 TIME: 14:58 ER Progress Note The touring production manager examined the patient and recommended to stop the Prozac which may be the cause. I did inform the admitting MD MARCELINA Machuca MD May 16, 2017 14:59
[2017-05-16] MEDS: HYDROCODONE/APAP (5/325) TAB PO PRN ×2 (15:08→18:32)
--- NOTE | 2017-05-16 15:25 | CONS ---
Date/Time of Note Date/Time of Note DATE: 05/16/17 TIME: 15:05 Assessment/Plan Assessment/Plan Additional Assessment/Plan 21 yo woman with leucopenia that is primarily due to lymphopenia. Absolute neutrophil count is about 1600 without a left shift or blasts. Platelets are mildly low and the Hgb is normal. She may have a UTI. Cultures are being sent and antibiotics started. The pancytopenia could be due to infection. The only drug is the Prozac that was started about two months ago. I would stop this agent for now although it seems unlikely to be the cause since the blood picture is primarily a lymphopenia. I plan to follow the counts over the next couple of days. I would not do a bone marrow at present. Note tht the prior two ER visits this year, which were in June and November, showed normal WBC's. Discussed with ER staff and Dr. Palacios, who admitted the patient. Consultation Date/Type/Reason Admit Date/Time 05/16/17 Date of Consultation: May 16, 2017 Type of Consultation: Hematology Reason for Consultation pancytopenia Hx of Present Illness 21 yo woman with presentation to ER because of abdominal pain. She was found to have pancytopenia and urinary tract infection. She also had been started about two months ago on Prozac, which helped her psychiatric issues but she denies any blood counts as outpatient. Last CBC's were in November and June in the ER. She also is aware of ovarian cysts but overall she describes herself as a healthy young woman. She denies taking any drugs beside Prozac. She does use marijuana but denies use of needles or other recreational drugs. There are no known drug allergies. Father is not aware of anything else but he says she often does not listen to him. Past Surgical History Past Surgical Hx: no surgical history Social History Alcohol Use: none Smoking Status: Never smoker Drug Use: marijuana Exam/Review of Systems Vital Signs Vitals Vital Signs Date Time Temp Pulse Resp B/P Pulse Ox O2 Delivery O2 Flow Rate FiO2 05/16/17 13:04 100.2 94 18 101/59 98 Exam Constitutional: alert, oriented Head: normocephalic Eyes: nl conjunctiva ENMT: nl external ears & nose Respiratory: clear to auscultation Cardiovascular: regular rate and rhythm Gastrointestinal: other (diffuse mild tenderness. no hepatosplenomegaly), soft Musculoskeletal: nl extremities to inspection Extremities: normal pulses Neurological: nl mental status, nl speech Skin: rash or lesions (no rash or petecchiae) Lymph: nl lymph nodes Results Result Diagram: 05/16/1793705/16/17 09 Results 24 hrs Laboratory Tests Test 05/16/17 08:55 05/16/17 09:38 Urine Color YELLOW Urine Clarity SLIGHTLY CLOUDY A Urine pH 5.0 Urine Specific [place] 1.033 H Urine Ketones 2+ H Urine Nitrite NEGATIVE Urine Bilirubin NEGATIVE Urine Urobilinogen 1+ H Urine Leukocyte Esterase TRACE A Urine Microscopic RBC 16 H Urine Microscopic WBC 12 H Urine Squamous Epithelial Cells FEW Urine Bacteria FEW A Urine Mucus MODERATE Urine Hemoglobin NEGATIVE Urine Glucose NEGATIVE Urine Total Protein 3+ H White Blood Count 2.2 #L Red Blood Count 4.29 Hemoglobin 13.4 Hematocrit 40.2 Mean Corpuscular Volume 93.7 Mean Corpuscular Hemoglobin 31.2 Mean Corpuscular Hemoglobin Concent 33.3 Red Cell Distribution Width 11.9 Platelet Count 87 #L Mean Platelet Volume 11.8 H Neutrophils % Segmented Neutrophils % (Manual) 49 Band Neutrophils % (Manual) 33 H Lymphocytes % Lymphocytes % (Manual) 7 L Monocytes % Monocytes % (Manual) 11 Eosinophils % Basophils % Nucleated Red Blood Cells % 0.0 Neutrophils # Neutrophils # (Manual) 1.1 L Band Neutrophils # 0.7 H Absolute Lymphocytes (Manual) 0.1 L Lymphocytes # Monocytes # Absolute Monocytes (Manual) 0.2 L Eosinophils # Basophils # Nucleated Red Blood Cells # Platelet Estimate DECREASED Anisocytosis 1+ Macrocytosis 1+ Sodium Level 140 Potassium Level 3.6 Chloride Level 102 Carbon Dioxide Level 26 Anion Gap 16 Blood Urea Nitrogen 14 Creatinine 0.72 Glucose Level 84 Calcium Level 9.3 Total Bilirubin 0.4 Direct Bilirubin 0.00 Indirect Bilirubin 0.4 Aspartate Amino Transf (AST/SGOT) 27 Alanine Aminotransferase (ALT/SGPT) 35 Alkaline Phosphatase 51 Total Protein 7.3 Albumin 4.1 Globulin 3.20 Albumin/Globulin Ratio 1.28 Lipase 36 Medications Medications Current Medications Levofloxacin/ Dextrose (Levaquin 500mg/ D5W 100 ml (Pmx)) 100 ml @ 100 mls/hr Q24H IVPB Last administered on 05/16/17t 14:39; Admin Dose 100 MLS/HR; Start 05/16/17 at 14:30 Acetaminophen/ Hydrocodone Bitart ([place] (5/325)) 1 tab Q6H PRN PO pain; Start 05/16/17 at 14:30 Ondansetron HCl (Zofran Inj) 4 mg Q6H PRN IV NAUSEA AND/OR VOMITING; Start 05/21 at 14:30 Docusate Sodium (Colace) 100 mg BID PO ; Start 05/16/17 at 21:00 Famotidine (Pepcid) 20 mg DAILY PO ; Start 05/17/17 at 09:00 SHANAE REICH MD May 16, 2017 15:24
[2017-05-16 15:58] LABS: MAGNESIUM 1.5 mg/dl (1.7-2.5); PHOSPHORUS 3.1 mg/dl (2.5-4.9)
[2017-05-16 16:20] VITALS: TEMP 98.6
[2017-05-16 16:34] LABS: PATH REVIEW CH
[2017-05-16 16:57] LABS: TOTAL IRON BINDING CAPACITY 224 ug/dl (241-421)
[2017-05-16 16:58] LABS: IRON < 10 ug/dl (35-150)
[2017-05-16 17:31] VITALS: BP 100/55; RESP 18
[2017-05-16 18:16] VITALS: Ht 157.5 cm; Wt 55.0 kg
[2017-05-16 18:22] VITALS: BP 100/55; PULSE 82; RESP 18
[2017-05-16 18:27] LABS: BARBITURATES Negative (NEGATIVE); BENZODIAZEPINES Negative (NEGATIVE); CANNABINOIDS Positive (NEGATIVE); COCAINE Negative (NEGATIVE); OPIATES Negative (NEGATIVE)
[2017-05-16 19:16] VITALS: BP 108/57; RESP 18
[2017-05-16] MEDS: DOCUSATE SODIUM 100 MG CAP PO SCH (20:05)
[2017-05-16] MEDS: ONDANSETRON 4 MG INJ IV PRN (21:51)
[2017-05-17] MEDS: HYDROCODONE/APAP (5/325) TAB PO PRN ×2 (01:26→09:15)
[2017-05-17 01:28] VITALS: BP 100/59; RESP 18
[2017-05-17] MEDS ORDERED: ACETAMINOPHEN 325 MG TAB PO PRN (02:00)
[2017-05-17] MEDS: ONDANSETRON 4 MG INJ IV PRN ×2 (03:31→21:24)
[2017-05-17] MEDS: ACETAMINOPHEN 325 MG TAB PO PRN ×2 (03:31→13:21)
[2017-05-17 05:08] LABS: ABNORMAL IP MESSAGE 1; HEMATOCRIT 35.9 % (37.0-47.0); HEMOGLOBIN 12.4 g/dl (12.0-16.0); MEAN CORPUSCULAR HEMOGLOBIN 31.6 pg (29.0-33.0); MEAN CORPUSCULAR HGB CONC 34.5 g/dl (32.0-37.0); MEAN CORPUSCULAR VOLUME 91.6 fl (82.0-101.0); MEAN PLATELET VOLUME 12.5 fl (7.4-10.4); PLATELET COUNT 70 10^3/UL (140-415); RED BLOOD COUNT 3.92 10^6/ul (4.20-5.40); WHITE BLOOD COUNT 2.1 10^3/ul (4.8-10.8)
[2017-05-17 05:23] LABS: CREATININE 0.72 mg/dl (0.44-1.00); POTASSIUM 3.7 mmol/L (3.5-5.1)
[2017-05-17 05:35] LABS: INR 1.14; PROTIME 14.8 Sec (11.9-14.9); PT RATIO 1.2
[2017-05-17 05:36] LABS: PARTIAL THROMBOPLASTIN TIME 42.1 Sec (25.0-35.0)
[2017-05-17 05:53] LABS: THYROID STIMULATING HORMONE 0.553 MIU/L (0.465-4.680)
[2017-05-17 05:59] LABS: POSITIVE DIFF @See below
[2017-05-17 06:10] VITALS: BP 94/50; PULSE 62; RESP 18
[2017-05-17] MEDS ORDERED: SOD CHLORIDE 0.9% 500 ML IV ONE (06:30)
[2017-05-17 06:44] VITALS: BP 97/54
[2017-05-17] MEDS: SOD CHLORIDE 0.9% 1,000 ML IV SCH ×2 (06:53→21:48)
[2017-05-17 08:02] VITALS: BP 90/54; RESP 18
[2017-05-17] MEDS: DOCUSATE SODIUM 100 MG CAP PO SCH ×2 (08:15→21:00)
[2017-05-17] MEDS: FAMOTIDINE 20 MG TAB PO SCH (08:15)
--- NOTE | 2017-05-17 09:55 | PN ---
Date/Time of Note Date/Time of Note DATE: 05/17/17 TIME: 09:53 Assessment/Plan VTE Prophylaxis VTE Prophylaxis Intervention: SCD's Lines/Catheters [facility] [place] Urinary Cath still in place: No Assessment/Plan Assessment/Plan 21 yo f who presents with fatigue and lower abd pain x2-3days admitted and managed for the followin. Severe Neutropenia and Thrombocytopenia Appreciate oncology review, oncology feels Prozac is likely precipitant. 2. UTI with fever 3. Chronic Trichotillomania with Severe anxiety d/o 4. Severe iron deficiency which likely is contributing to #1 5. Continued abdominal pain, which seems more umbilical in location today. Patient states she had similar pain when she had a ruptured ovarian cyst PLAN: Commence iron replacement therapy for severe iron deficiency We will get telemetry psychiatry consultation for the following reasons: 1. Patient states had trichotillomania was not well controlled on Prozac alone prior to hospitalization 2. Since we have discontinued Prozac secondary to #1, we will need replacement medication Will rule out STD, as well as gets pelvic ultrasound to evaluate ovarian cysts. Patients with trichotillomania have been known to eat their hair , however patient vehemently denies this. CT of the abdomen and pelvis also did not show concern for obstruction. However in view of continued abdominal pain as well as iron deficiency, we will go ahead and get GI consult. Shortness of breath is likely associated with abdominal pain, CT abdomen and pelvis did not show any pulmonary findings in the lung bases. We will get chest x-ray Continue supportive care with antipyretics and pain control if indicated, and further interventions will depend on her clinical course. This plan of care has been discussed with the patient, questions have been answered. Subjective 24 Hr Interval Summary Free Text/Dictation feels like she's SOB, still with significant abd pain, says pain is the same as when she had ovarian cyst rupture Exam/Review of Systems Vital Signs Vitals Vital Signs Date Time Temp Pulse Resp B/P Pulse Ox O2 Delivery O2 Flow Rate FiO2 05/17/17 08:02 98.2 74 18 90/54 98 05/17/17 06:10 Room Air Intake and Output 05/16/17 05/16/17 05/17/17 15:00 23:00 07:00 Intake Total 850 ml Balance 850 ml Exam Constitutional: alert, other (Uncomfortable) Head: atraumatic, normocephalic Eyes: PERRL Neck: supple Respiratory: clear to auscultation Cardiovascular: regular rate and rhythm Gastrointestinal: bowel sounds, soft Musculoskeletal: nl extremities to inspection Neurological: nl mental status Results Result Diagram: 05/17/17 0443 05/17/17 0443 Results 24 hrs Laboratory Tests Test 05/16/17 15:20 05/17/17 04:43 Hemoglobin A1c 5.1 Lactic Acid Level 1.0 Phosphorus Level 3.1 Magnesium Level 1.5 L Iron Level < 10 L Total Iron Binding Capacity 224 L Percent Iron Saturation Vitamin B12 Level 247 Hepatitis B Surface Antigen NEGATIVE Hepatitis B Surface Antibody NEGATIVE Hepatitis C Antibody NEGATIVE HIV (1&2) Antibody NEGATIVE White Blood Count 2.1 L Red Blood Count 3.92 L Hemoglobin 12.4 Hematocrit 35.9 L Mean Corpuscular Volume 91.6 Mean Corpuscular Hemoglobin 31.6 Mean Corpuscular Hemoglobin Concent 34.5 Red Cell Distribution Width 12.0 Platelet Count 70 L Mean Platelet Volume 12.5 H Neutrophils % Lymphocytes % Monocytes % Eosinophils % Basophils % Nucleated Red Blood Cells % 0.0 Neutrophils # Lymphocytes # Monocytes # Eosinophils # Basophils # Nucleated Red Blood Cells # Prothrombin Time 14.8 Prothrombin Time Ratio 1.2 INR International Normalized Ratio 1.14 Activated Partial Thromboplast Time 42.1 H Sodium Level 137 Potassium Level 3.7 Chloride Level 101 Carbon Dioxide Level 23 Anion Gap 17 H Blood Urea Nitrogen 9 Creatinine 0.72 Glucose Level 78 Calcium Level 9.0 Thyroid Stimulating Hormone (TSH) 0.553 Hepatitis B Core Total Antibody NEGATIVE Medications Medications Current Medications Levofloxacin/ Dextrose (Levaquin 500mg/ D5W 100 ml (Pmx)) 100 ml @ 100 mls/hr Q24H IVPB Last administered on 05/16/17 14:39; Admin Dose 100 MLS/HR; Start 05/16/17 at 14:30 Acetaminophen/ Hydrocodone Bitart ([place] (5/325)) 1 tab Q6H PRN PO pain Last administered on 05/17/17 09:15; Admin Dose 1 TAB; Start 05/16/17 at 14:30 Ondansetron HCl (Zofran Inj) 4 mg Q6H PRN IV NAUSEA AND/OR VOMITING Last administered on 05/17/17 03:31; Admin Dose 4 MG; Start 05/16/17 at 14:30 Docusate Sodium (Colace) 100 mg BID PO Last administered on 05/17/17 08:15; Admin Dose 100 MG; Start 05/16/17 at 21:00 Famotidine (Pepcid) 20 mg DAILY PO Last administered on 05/17/17 08:15; Admin Dose 20 MG; Start 05/17/17 at 09:00 Ondansetron HCl (Zofran Inj) 4 mg Q4H PRN IV NAUSEA AND/OR VOMITING; Start at 02:00 Acetaminophen 650 mg 650 mg Q8H PRN PO PAIN AND OR ELEVATED TEMP Last administered on 05/17/17 03:31; Admin Dose 650 MG; Start 05/17/17 at 02:30 Sodium Chloride (NS) 1,000 ml @ 70 mls/hr [id number] IV Last administered on 06:53; Admin Dose 70 MLS/HR; Start 05/17/17 at 07:30 MEGHAN CURTIS May 17, 2017 09:55
[2017-05-17 10:16] LABS: GIANT THROMBO% (M) 1 % (0-0); METAMYELOCYTES %M 1 % (0-0); MONOCYTES % (M) 3 % (0-11); PLATELET ESTIMATE DECREASED; REACTIVE LYMPHOCYTES% (M) 1 % (0-0)
[2017-05-17] MEDS ORDERED: MAGNESIUM SULFATE 2 GM/50 ML 50 ML IVPB ONE (11:00)
[2017-05-17] MEDS: SOD FERRIC GLUC COMPLX 125 MG in SOD CHLORIDE 0.9% 100 ML IVPB SCH (11:46)
[2017-05-17] MEDS: KETOROLAC 30 MG INJ IV PRN ×2 (14:41→21:19)
[2017-05-17 15:02] VITALS: BP 108/65; RESP 18
--- NOTE | 2017-05-17 15:04 | RADRPT ---
PROCEDURE: XR Chest. CLINICAL INDICATION: Shortness of breath TECHNIQUE: Single portable view of the chest was obtained COMPARISON: No priors for comparison FINDINGS: The trachea is midline. The cardiac silhouette and pulmonary vascularity are within normal limits. T he lungs are clear. The costophrenic angles are sharp. IMPRESSION: 1. No evidence of acute cardiopulmonary disease. RPTAT: AAPP Physician Cici Date Time Electronically viewed and signed by Sukhwinder Maynard Physician on 05/17/2017 15:04 CARROLL/
--- NOTE | 2017-05-17 15:18 | CONS ---
Date/Time of Note Date/Time of Note DATE: 05/17/17 TIME: 14:44 Assessment/Plan Assessment/Plan Chief Complaint/Hosp Course Assessment: Abdominal pain GI etiology versus UTI versus REGISTERED NURSE CARDIAC etiology Trichotillomania Depression/anxiety disorder Possible BV (may need wet prep) Plan: CT of abdomen and pelvis with IV/p.o. contrast tomorrow EGD on Monday Start Protonix Consultation performed in collaboration with Dr. Grigsby Subjective: Patient appears very anxious, constantly pulling on her hair. She is worried about having cancer or HIV. Was reassured that HIV results were negative and there is no need for bone marrow biopsy yet. Patient has been interviewed and examined. Plan of treatment and EGD procedure has been explained. All the risks and benefits reviewed. Patient is agreeable to the procedure. All imaging and laboratory data has been reviewed. Discussed the treatment plan with nursing staff. Problems: Consultation Date/Type/Reason Admit Date/Time 05/16/17 Date of Consultation: May 17, 2017 Type of Consultation: GI Reason for Consultation Abdominal pain Hx of Present Illness This is a 21-year-old female admitted yesterday for fever and abdominal pain. She has been treated empirically for UTI. On the labs was found to be neutropenic and thrombocytopenic. Today WBC 2.1 and platelets 70. Patient is generally healthy except for severe anxiety disorder and depression. She reports having a social anxiety for many years but was finally diagnosed 3 months ago and put on Prozac. She has been taking Prozac for 2 months now with significant relief of her symptoms however it has been discontinued at the admission due to possible neutropenic effect. CT of the abdomen without contrast revealed cysts in the ovaries otherwise unremarkable, no signs of bowel obstruction. Hepatitis antibodies are negative, HIV test is negative. Upon the examination patient has severe abdominal pain in all 4 quadrants and periumbilical area. Patient is currently wearing a wig to cover the hair loss due to constant pulling the hair. She appears to be very anxious, constantly tugging on her hair. Her left hand knuckles appear abraded and teeth enamel is eroded. Patient states she is left-handed but denies purging, explaining calluses on the knuckles are due to constant rubbing to relieve the anxiety. She is also complaining of having vaginal itching and copious vaginal discharge in the past week that is clear in nature without order. From GI standpoint the plan is to schedule CT scan with IV/p.o. contrast for tomorrow and EGD on Monday. Gastrointestinal: no complaints (See HPI) Genitourinary: no complaints (See HPI) Skin: no complaints (See HPI) Past Medical History Depression/anxiety disorder Past Surgical History D&C for miscarriage Past Surgical Hx: no surgical history Family History Significant Family History: cancer (Breast cancer, paternal grandmother), diabetes (Maternal grandmother) Social History Alcohol Use: none Smoking Status: Current some day smoker Drug Use: marijuana (Medicinal use for anxiety) Exam/Review of Systems Vital Signs Vitals Vital Signs Date Time Temp Pulse Resp B/P Pulse Ox O2 Delivery O2 Flow Rate FiO2 05/17/17 08:02 98.2 74 18 90/54 98 05/17/17 06:10 Room Air Intake and Output 05/16/17 05/16/17 05/17/17 15:00 23:00 07:00 Intake Total 850 ml Balance 850 ml Exam PHYSICAL EXAMINATION: GENERAL: Well developed, well nourished, alert & oriented x 3, in no acute distress SKIN: Left hand knuckle skin abrasions, no stigmata chronic liver disease, no evidence of bleeding diathesis LYMPHATIC: No palpable lymphadenopathy. HEAD: Normocephalic, atraumatic, no tenderness. EYES: Pupils equal reactive to light and accommodation, full extraocular movements, sclera clear, non-icteric, no discharge. EARS/NOSE AND THROAT: Ears normal, nose normal, oropharynx normal, oral membranes well hydrated without lesions. NECK: Supple, no masses, thyroid normal, JVP within normal limits, carotids normal without bruits. CHEST: Inspection within normal limits. CARDIOVASCULAR: Heart: Regular rate and rhythm, no murmurs, gallops or rubs. Peripheral pulses present within normal limits, no cyanosis, clubbing or edemas. No pulsatile abdominal mass RESPIRATORY: Lungs clear to auscultation and percussion, no wheezing, no rubs GASTROINTESTINAL AND LIVER: Abdomen: Soft, moderate generalized tenderness, non -distended, no hernias, no masses, no organomegaly, no ascites, no guarding, no rebound tenderness, normoactive bowel sounds. Rectal: Deferred. GENITOURINARY: Female genitalia within normal limits.] EXTREMITIES: No cyanosis, clubbing or edema. PSYCHIATRIC: Alert & oriented x 3, mood/affect/judgement adequate, very anxious Results Result Diagram: 05/17/17 0443 05/17/17 0443 Results 24 hrs Laboratory Tests Test 05/16/17 15:20 05/17/17 04:43 Hemoglobin A1c 5.1 Lactic Acid Level 1.0 Phosphorus Level 3.1 Magnesium Level 1.5 L Iron Level < 10 L Total Iron Binding Capacity 224 L Percent Iron Saturation Vitamin B12 Level 247 Hepatitis B Surface Antigen NEGATIVE Hepatitis B Surface Antibody NEGATIVE Hepatitis C Antibody NEGATIVE HIV (1&2) Antibody NEGATIVE White Blood Count 2.1 L Red Blood Count 3.92 L Hemoglobin 12.4 Hematocrit 35.9 L Mean Corpuscular Volume 91.6 Mean Corpuscular Hemoglobin 31.6 Mean Corpuscular Hemoglobin Concent 34.5 Red Cell Distribution Width 12.0 Platelet Count 70 L Mean Platelet Volume 12.5 H Neutrophils % Segmented Neutrophils % (Manual) 41 Band Neutrophils % (Manual) 46 H Lymphocytes % Lymphocytes % (Manual) 8 L Reactive Lymphocytes % (Manual) 1 H Monocytes % Monocytes % (Manual) 3 Eosinophils % Basophils % Metamyelocytes % (manual) 1 H Nucleated Red Blood Cells % 0.0 Neutrophils # Neutrophils # (Manual) 0.9 L Band Neutrophils # 0.9 H Absolute Lymphocytes (Manual) 0.1 L Lymphocytes # Reactive Lymphocytes # 0.0 Monocytes # Absolute Monocytes (Manual) 0.0 L Eosinophils # Basophils # Metamyelocytes # 0.0 Nucleated Red Blood Cells # Platelet Estimate DECREASED Giant Platelets 1 H Prothrombin Time 14.8 Prothrombin Time Ratio 1.2 INR International Normalized Ratio 1.14 Activated Partial Thromboplast Time 42.1 H Sodium Level 137 Potassium Level 3.7 Chloride Level 101 Carbon Dioxide Level 23 Anion Gap 17 H Blood Urea Nitrogen 9 Creatinine 0.72 Glucose Level 78 Calcium Level 9.0 Thyroid Stimulating Hormone (TSH) 0.553 Hepatitis B Core Total Antibody NEGATIVE Medications Medications Current Medications Levofloxacin/ Dextrose (Levaquin 500mg/ D5W 100 ml (Pmx)) 100 ml @ 100 mls/hr Q24H IVPB Last administered on 05/16/17 14:39; Admin Dose 100 MLS/HR; Start 05/16/17 at 14:30 Acetaminophen/ Hydrocodone Bitart ([place] (5/325)) 1 tab Q6H PRN PO pain Last administered on 05/17/17 09:15; Admin Dose 1 TAB; Start 05/16/17 at 14:30 Ondansetron HCl (Zofran Inj) 4 mg Q6H PRN IV NAUSEA AND/OR VOMITING Last administered on 05/17/17 03:31; Admin Dose 4 MG; Start 05/16/17 at 14:30 Docusate Sodium (Colace) 100 mg BID PO Last administered on 05/17/17 08:15; Admin Dose 100 MG; Start 05/16/17 at 21:00 Famotidine (Pepcid) 20 mg DAILY PO Last administered on 05/17/17 08:15; Admin Dose 20 MG; Start 05/17/17 at 09:00 Ondansetron HCl (Zofran Inj) 4 mg Q4H PRN IV NAUSEA AND/OR VOMITING; Start at 02:00 Acetaminophen 650 mg 650 mg Q8H PRN PO PAIN AND OR ELEVATED TEMP Last administered on 05/17/17 13:21; Admin Dose 650 MG; Start 05/17/17 at 02:30 Sodium Chloride 1,000 ml @ 70 mls/hr [id number] IV Last administered on 06:53; Admin Dose 70 MLS/HR; Start 05/17/17 at 07:30 Ferric Sodium Gluconate Complex/ Sodium Chloride ([place]errlecit/NS) 110 ml @ 110 mls/hr Q24H IVPB Last administered on 05/17/17 11:46; Admin Dose 110 MLS/HR; Start 05/17/17 at 11:00; Stop 05/21/17 at 11:59 Ketorolac Tromethamine (Toradol) 30 mg Q6H PRN IV PAIN Last administered on 14:41; Admin Dose 30 MG; Start 05/17/17 at 14:00; Stop 05/19/17 at 13: 59 Copies To: CC: KARTHIKEYAN GRIGSBY MD, ANASTASIA NP May 17, 2017 15:01
[2017-05-17] MEDS ORDERED: BARIUM SULF 2% 450 ML BTL (BERRY SMOOTHIE) PO ONE (15:30)
--- NOTE | 2017-05-17 15:31 | PN ---
Date/Time of Note Date/Time of Note DATE: 05/17/17 TIME: 15:25 Assessment/Plan VTE Prophylaxis VTE Prophylaxis Intervention: ambulation Lines/Catheters IV [facility]ter Type (from [facility]): Peripheral IV Urinary Cath still in place: No Assessment/Plan Chief Complaint/Hosp Course 21 yo woman with presentation to ER because of abdominal pain. She was found to have pancytopenia and urinary tract infection. She also had been started about two months ago on Prozac, which helped her psychiatric issues but she denies any blood counts as outpatient. Last CBC's were in November and June in the ER. She also is aware of ovarian cysts but overall she describes herself as a healthy young woman. She denies taking any drugs beside Prozac. She does use marijuana but denies use of needles or other recreational drugs. There are no known drug allergies. Father is not aware of anything else but he says she often does not listen to him. Problems: Assessment/Plan Pancytopenia is stable compared to yesterday. Note that the leucopenia is due to lymphopenia; the absolute neutrophil count is ~1800. Platelets are slightly low but stable. Prozac has been stopped. It is still not clear as to why she is pancytopenic. Possibilities include response to infection or drug effect. Primary marrow disorder is possible but I do not see blasts or myelodysplastic changes. Will follow the trend of her counts. Endoscopy is planned to evaluate the abdominal pain issue. I agree with this evaluation. Subjective 24 Hr Interval Summary Free Text/Dictation Stable. No abdominal pain presently. Parents at bedside. Exam/Review of Systems Vital Signs Vitals Vital Signs Date Time Temp Pulse Resp B/P Pulse Ox O2 Delivery O2 Flow Rate FiO2 05/17/17 15:02 98.5 74 18 108/65 97 05/17/17 06:10 Room Air Intake and Output 05/16/17 05/16/17 05/17/17 15:00 23:00 07:00 Intake Total 850 ml Balance 850 ml Exam Constitutional: alert, oriented Psych: no complaints Head: normocephalic, other (trichillomania) Eyes: nl conjunctiva Neck: supple Respiratory: clear to auscultation Cardiovascular: regular rate and rhythm Gastrointestinal: nl liver, spleen, soft Musculoskeletal: nl extremities to inspection Extremities: normal pulses Neurological: nl mental status, nl speech Skin: nl turgor Results Result Diagram: 05/17/17 0443 05/17/17 0443 Results 24 hrs Laboratory Tests Test 05/17/17 04:43 White Blood Count 2.1 L Red Blood Count 3.92 L Hemoglobin 12.4 Hematocrit 35.9 L Mean Corpuscular Volume 91.6 Mean Corpuscular Hemoglobin 31.6 Mean Corpuscular Hemoglobin Concent 34.5 Red Cell Distribution Width 12.0 Platelet Count 70 L Mean Platelet Volume 12.5 H Neutrophils % Segmented Neutrophils % (Manual) 41 Band Neutrophils % (Manual) 46 H Lymphocytes % Lymphocytes % (Manual) 8 L Reactive Lymphocytes % (Manual) 1 H Monocytes % Monocytes % (Manual) 3 Eosinophils % Basophils % Metamyelocytes % (manual) 1 H Nucleated Red Blood Cells % 0.0 Neutrophils # Neutrophils # (Manual) 0.9 L Band Neutrophils # 0.9 H Absolute Lymphocytes (Manual) 0.1 L Lymphocytes # Reactive Lymphocytes # 0.0 Monocytes # Absolute Monocytes (Manual) 0.0 L Eosinophils # Basophils # Metamyelocytes # 0.0 Nucleated Red Blood Cells # Platelet Estimate DECREASED Giant Platelets 1 H Prothrombin Time 14.8 Prothrombin Time Ratio 1.2 INR International Normalized Ratio 1.14 Activated Partial Thromboplast Time 42.1 H Sodium Level 137 Potassium Level 3.7 Chloride Level 101 Carbon Dioxide Level 23 Anion Gap 17 H Blood Urea Nitrogen 9 Creatinine 0.72 Glucose Level 78 Calcium Level 9.0 Thyroid Stimulating Hormone (TSH) 0.553 Hepatitis B Core Total Antibody NEGATIVE Medications Medications Current Medications Levofloxacin/ Dextrose (Levaquin 500mg/ D5W 100 ml (Pmx)) 100 ml @ 100 mls/hr Q24H IVPB Last administered on 05/16/17 14:39; Admin Dose 100 MLS/HR; Start 05/16/17 at 14:30 Acetaminophen/ Hydrocodone Bitart ([place] (5/325)) 1 tab Q6H PRN PO pain Last administered on 05/17/17 09:15; Admin Dose 1 TAB; Start 05/16/17 at 14:30 Ondansetron HCl (Zofran Inj) 4 mg Q6H PRN IV NAUSEA AND/OR VOMITING Last administered on 05/17/17 03:31; Admin Dose 4 MG; Start 05/16/17 at 14:30 Docusate Sodium (Colace) 100 mg BID PO Last administered on 05/17/17 08:15; Admin Dose 100 MG; Start 05/16/17 at 21:00 Famotidine (Pepcid) 20 mg DAILY PO Last administered on 05/17/17 08:15; Admin Dose 20 MG; Start 05/17/17 at 09:00 Ondansetron HCl (Zofran Inj) 4 mg Q4H PRN IV NAUSEA AND/OR VOMITING; Start at 02:00 Acetaminophen 650 mg 650 mg Q8H PRN PO PAIN AND OR ELEVATED TEMP Last administered on 05/17/17 13:21; Admin Dose 650 MG; Start 05/17/17 at 02:30 Sodium Chloride 1,000 ml @ 70 mls/hr [id number] IV Last administered on 06:53; Admin Dose 70 MLS/HR; Start 05/17/17 at 07:30 Ferric Sodium Gluconate Complex/ Sodium Chloride (Ferrlecit/NS) 110 ml @ 110 mls/hr Q24H IVPB Last administered on 05/17/17 11:46; Admin Dose 110 MLS/HR; Start 05/17/17 at 11:00; Stop 05/21/17 at 11:59 Ketorolac Tromethamine (Toradol) 30 mg Q6H PRN IV PAIN Last administered on 14:41; Admin Dose 30 MG; Start 05/17/17 at 14:00; Stop 05/19/17 at 13: 59 Pantoprazole (Protonix Iv) 40 mg DAILY@06 IV ; Start 05/18/17 at 06:00; Status SHANAE MARTIN MD May 17, 2017 15:31
--- NOTE | 2017-05-17 16:36 | RADRPT ---
PROCEDURE: US pelvis CLINICAL INDICATION: Pelvic pain TECHNIQUE: Transabdominal and endovaginal pelvic sonography was performed COMPARISON: Pelvic ultrasound 11/27/2016. Unenhanced abdomen/pelvis CT 05/16/2017. FINDINGS: The patient's last menstrual period began on 05/09/2017. The partially distended bladder is unremarkable. Small amount of free pelvic fluid. Uterus: Size: 7.5 x 4.2 x 5.5 cm Presentation: Retroflexed Appearance: Homogeneous echotexture Endometrium: 11.5 mm in thickness. No mass or increased vascularity seen. Cervix: Limited visualization reveals no abnormality Right ovary: Size: 4.5 x 2.8 x 2.9 cm Appearance: Few probable follicles Blood flow: Within normal limits Left ovary: Size: 3.7 x 1.9 x 1.8 cm Appearance: Few probable follicles Blood flow: Apparent decreased left ovarian blood flow, but this may be artifactual IMPRESSION: 1. Retroflexed uterus is unremarkable. Small amount of free pelvic fluid. Bilateral ovarian probab le follicles. 2. Apparent decreased left ovarian blood flow, but this may be artifactual; the left ovary does not have the typical appearance of ovarian torsion (though intermittent torsion is in the differential diagnosis). If there is clinical concern, a repeat left ovarian Doppler sonogram may be performed fo r further analysis of left ovarian blood flow. If clinically indicated, correlate with serum test. Report called to the nurse caring for the patient on 05/17/2017 at 1625 hours. RPTAT: TT Physician Mónica Date Time Electronically viewed and signed by Physician Mónica on 05/17/2017 16:35 JS/
[2017-05-17] MEDS: LEVOFLOXACIN 500MG/D5W (PMX) 100 ML IVPB SCH (16:40)
[2017-05-17 20:03] VITALS: BP 103/60; RESP 18
[2017-05-18 01:50] VITALS: BP 112/68; RESP 18
[2017-05-18] MEDS: SOD CHLORIDE 0.9% 1,000 ML IV SCH ×2 (04:15→20:57)
[2017-05-18] MEDS: PANTOPRAZOLE 40 MG INJ IV SCH (06:28)
[2017-05-18 07:50] VITALS: BP 95/55; RESP 18
[2017-05-18] MEDS: DOCUSATE SODIUM 100 MG CAP PO SCH ×2 (09:00→21:00)
[2017-05-18] MEDS ORDERED: BARIUM SULF 2% 450 ML BTL (BERRY SMOOTHIE) PO ONE (09:00)
[2017-05-18] MEDS: FAMOTIDINE 20 MG TAB PO SCH (09:00)
[2017-05-18] MEDS: SOD FERRIC GLUC COMPLX 125 MG in SOD CHLORIDE 0.9% 100 ML IVPB SCH (11:39)
[2017-05-18] MEDS ORDERED: morphine 2 MG INJ ONE (11:40)
[2017-05-18 11:56] LABS: ABNORMAL IP MESSAGE 1; HEMATOCRIT 37.3 % (37.0-47.0); HEMOGLOBIN 12.7 g/dl (12.0-16.0); MEAN CORPUSCULAR HEMOGLOBIN 31.4 pg (29.0-33.0); MEAN CORPUSCULAR VOLUME 92.1 fl (82.0-101.0); PLATELET COUNT 53 10^3/UL (140-415); RED BLOOD COUNT 4.05 10^6/ul (4.20-5.40); RED CELL DISTRIBUTION WIDTH 12.2 % (11.5-14.5); WHITE BLOOD COUNT 1.6 10^3/ul (4.8-10.8)
[2017-05-18] MEDS ORDERED: morphine 2 MG INJ IV PRN (12:00)
[2017-05-18] MEDS ORDERED: morphine LIQ (10 MG/5 ML) CUP PO PRN (12:00)
[2017-05-18] MEDS: ONDANSETRON 4 MG INJ IV PRN (12:04)
[2017-05-18 12:14] LABS: POSITIVE DIFF @See below
[2017-05-18 12:18] LABS: CALCIUM 8.3 mg/dl (8.4-10.2); CREATININE 0.7 mg/dl (0.44-1.00); POTASSIUM 3.6 mmol/L (3.5-5.1)
--- NOTE | 2017-05-18 12:18 | PN ---
Date/Time of Note Date/Time of Note DATE: 05/18/17 TIME: 12:14 Assessment/Plan VTE Prophylaxis VTE Prophylaxis Intervention: other (thrombocytopenia) Lines/Catheters IV [facility] Type (from [facility]): Peripheral IV Urinary Cath still in place: No Assessment/Plan Chief Complaint/Hosp Course 21 yo woman with presentation to ER because of abdominal pain. She was found to have pancytopenia and urinary tract infection. She also had been started about two months ago on Prozac, which helped her psychiatric issues but she denies any blood counts as outpatient. Last CBC's were in November and June in the ER. She also is aware of ovarian cysts but overall she describes herself as a healthy young woman. She denies taking any drugs beside Prozac. She does use marijuana but denies use of needles or other recreational drugs. There are no known drug allergies. Father is not aware of anything else but he says she often does not listen to him. Problems: Assessment/Plan AM lab is pending. EGD planned for tomorrow. IV iron has been given but the iron studies are more suggestive of anemia of chronic disease. Hgb is normal however. Even if iron were a little low, this would not explain the lymphopenia or thrombocytopenia. Will check ferritin and albumin again. Subjective 24 Hr Interval Summary Free Text/Dictation Pt is clinically the same. No bleeding. Exam/Review of Systems Vital Signs Vitals Vital Signs Date Time Temp Pulse Resp B/P Pulse Ox O2 Delivery O2 Flow Rate FiO2 05/18/17 07:50 98.5 75 18 95/55 95 05/17/17 06:10 Room Air Intake and Output 05/17/17 05/17/17 05/18/17 15:00 23:00 07:00 Intake Total 110 ml 2160 ml 920 ml Balance 110 ml 2160 ml 920 ml Exam Constitutional: alert, oriented Psych: other (withdran appearing) Head: normocephalic, other Eyes: nl conjunctiva ENMT: nl external ears & nose Neck: supple Respiratory: clear to auscultation Cardiovascular: regular rate and rhythm Gastrointestinal: nl liver, spleen, non-tender, soft Extremities: normal pulses Neurological: [employer] II-XII intact, nl mental status, nl speech, nl strength Lymph: nl lymph nodes Results Result Diagram: 05/17/1744205/17/17442 Results 24 hrs Laboratory Tests Test 05/18/17 11:32 White Blood Count Pending Red Blood Count Pending Hemoglobin Pending Hematocrit Pending Mean Corpuscular Volume Pending Mean Corpuscular Hemoglobin Pending Mean Corpuscular Hemoglobin Concent Pending Red Cell Distribution Width Pending Platelet Count Pending Mean Platelet Volume Pending Medications Medications Current Medications Levofloxacin/ Dextrose (Levaquin 500mg/ D5W 100 ml (Pmx)) 100 ml @ 100 mls/hr Q24H IVPB Last administered on 05/17/17 16:40; Admin Dose 100 MLS/HR; Start 05/16/17 at 14:30 Acetaminophen/ Hydrocodone Bitart ([place] (5/325)) 1 tab Q6H PRN PO pain Last administered on 05/17/17 09:15; Admin Dose 1 TAB; Start 05/16/17 at 14:30 Ondansetron HCl (Zofran Inj) 4 mg Q6H PRN IV NAUSEA AND/OR VOMITING Last administered on 05/18/17 12:04; Admin Dose 4 MG; Start 05/16/17 at 14:30 Docusate Sodium (Colace) 100 mg BID PO Last administered on 05/17/17 08:15; Admin Dose 100 MG; Start 05/16/17 at 21:00 Famotidine (Pepcid) 20 mg DAILY PO Last administered on 05/18/17 09:00; Admin Dose 20 MG; Start 05/17/17 at 09:00 Ondansetron HCl (Zofran Inj) 4 mg Q4H PRN IV NAUSEA AND/OR VOMITING; Start at 02:00 Acetaminophen 650 mg 650 mg Q8H PRN PO PAIN AND OR ELEVATED TEMP Last administered on 05/17/17 13:21; Admin Dose 650 MG; Start 05/17/17 at 02:30 Sodium Chloride 1,000 ml @ 70 mls/hr [id number] IV Last administered on 04:15; Admin Dose 70 MLS/HR; Start 05/17/17 at 07:30 Ferric Sodium Gluconate Complex/ Sodium Chloride (Ferrlecit/NS) 110 ml @ 110 mls/hr Q24H IVPB Last administered on 05/18/17 11:39; Admin Dose 110 MLS/HR; Start 05/17/17 at 11:00; Stop 05/21/17 at 11:59 Ketorolac Tromethamine (Toradol) 30 mg Q6H PRN IV PAIN Last administered on 21:19; Admin Dose 30 MG; Start 05/17/17 at 14:00; Stop 05/19/17 at 13: 59 Pantoprazole (Protonix Iv) 40 mg DAILY@06 IV Last administered on 05/18/17 06 :28; Admin Dose 40 MG; Start 05/18/17 at 06:00 Morphine Sulfate (morphine) 2 mg ONCE PRN IV PAIN LEVEL 6-10 Last administered on 05/18/17 12:05; Admin Dose 2 MG; Start 05/18/17 at 12:00; Stop 05/18/17 at 14:00 Morphine Sulfate (morphine) 6 mg Q4H PRN PO PAIN LEVEL 6-10; Start 05/18/17 at 16:00 SHANAE REICH MD May 18, 2017 12:18
--- NOTE | 2017-05-18 12:26 | PN ---
Date/Time of Note Date/Time of Note DATE: 05/18/17 TIME: 12:19 Assessment/Plan VTE Prophylaxis VTE Prophylaxis Intervention: ambulation, SCD's Lines/Catheters IV Catheter Type (from [facility]rs[facility]): Peripheral IV Urinary Cath still in place: No Assessment/Plan Assessment/Plan 21 yo f who presents with fatigue and lower abd pain x2-3days admitted and managed for the followin. Severe Neutropenia and Thrombocytopenia Appreciate oncology review, oncology feels Prozac is likely precipitant. indices haven't improved since admission, possibly worsening, per oncology, no real change 2. UTI with fever: no more fever >24hrs / cultures negative / complete 5 days abx regimen 3. Chronic Trichotillomania with Severe anxiety d/o: Psych review pending / Prozac d/c / #1 4. Severe iron deficiency which likely is chronic per hematology based on CBC, ok to replenish however / not likely a cause of #1 5. Diffuse severe abd pain: repeat pelvic USS ordered to properly assess L ovary / CT abd /pelvis also ordered per GI with IV and PO contrast / Patient also planned for endoscopy tomorrow / await findings Dispo: F/u findings in tests described above Await telemetry psychiatry consultation for the following reasons: 1. Patient states had trichotillomania was not well controlled on Prozac alone prior to hospitalization 2. Since we have discontinued Prozac secondary to #1, we will need replacement medication Continue supportive care with antipyretics and pain control if indicated, and further interventions will depend on her clinical course. This plan of care has been discussed with the patient, questions have been answered / also spoke with heme/onc in detail. Subjective 24 Hr Interval Summary Free Text/Dictation Patient seen and examined. says she's more comfortable but still having diffuse lower abd pain Exam/Review of Systems Vital Signs Vitals Vital Signs Date Time Temp Pulse Resp B/P Pulse Ox O2 Delivery O2 Flow Rate FiO2 05/18/17 07:50 98.5 75 18 95/55 95 05/17/17 06:10 Room Air Intake and Output 05/17/17 05/17/17 05/18/17 14:59 22:59 06:59 Intake Total 110 ml 2160 ml 920 ml Balance 110 ml 2160 ml 920 ml Exam Constitutional: alert, no distress, hat on Head: atraumatic, normocephalic Eyes: PERRL Neck: supple Respiratory: clear to auscultation Cardiovascular: regular rate and rhythm Gastrointestinal: bowel sounds, soft Musculoskeletal: nl extremities to inspection Neurological: nl mental status Results Result Diagram: 05/18/17 1132 05/17/17 0443 Results 24 hrs Laboratory Tests Test 05/18/17 11:32 White Blood Count 1.6 #L Red Blood Count 4.05 L Hemoglobin 12.7 Hematocrit 37.3 Mean Corpuscular Volume 92.1 Mean Corpuscular Hemoglobin 31.4 Mean Corpuscular Hemoglobin Concent 34.0 Red Cell Distribution Width 12.2 Platelet Count 53 #L Mean Platelet Volume 12.0 H Neutrophils % Lymphocytes % Monocytes % Eosinophils % Basophils % Nucleated Red Blood Cells % 0.0 Neutrophils # Lymphocytes # Monocytes # Eosinophils # Basophils # Nucleated Red Blood Cells # Medications Medications Current Medications Levofloxacin/ Dextrose (Levaquin 500mg/ D5W 100 ml (Pmx)) 100 ml @ 100 mls/hr Q24H IVPB Last administered on 05/17/17 16:40; Admin Dose 100 MLS/HR; Start 05/16/17 at 14:30 Acetaminophen/ Hydrocodone Bitart ([place] (5/325)) 1 tab Q6H PRN PO pain Last administered on 05/17/17 09:15; Admin Dose 1 TAB; Start 05/16/17 at 14:30 Ondansetron HCl (Zofran Inj) 4 mg Q6H PRN IV NAUSEA AND/OR VOMITING Last administered on 05/18/17 12:04; Admin Dose 4 MG; Start 05/16/17 at 14:30 Docusate Sodium (Colace) 100 mg BID PO Last administered on 05/17/17 08:15; Admin Dose 100 MG; Start 05/16/17 at 21:00 Famotidine (Pepcid) 20 mg DAILY PO Last administered on 05/18/17 09:00; Admin Dose 20 MG; Start 05/17/17 at 09:00 Ondansetron HCl (Zofran Inj) 4 mg Q4H PRN IV NAUSEA AND/OR VOMITING; Start at 02:00 Acetaminophen 650 mg 650 mg Q8H PRN PO PAIN AND OR ELEVATED TEMP Last administered on 12/13/17at 13:21; Admin Dose 650 MG; Start 05/17/17 at 02:30 Sodium Chloride 1,000 ml @ 70 mls/hr [id number] IV Last administered on 04:15; Admin Dose 70 MLS/HR; Start 05/17/17 at 07:30 Ferric Sodium Gluconate Complex/ Sodium Chloride (Ferrlecit/NS) 110 ml @ 110 mls/hr Q24H IVPB Last administered on 05/18/17 11:39; Admin Dose 110 MLS/HR; Start 05/17/17 at 11:00; Stop 05/21/17 at 11:59 Ketorolac Tromethamine (Toradol) 30 mg Q6H PRN IV PAIN Last administered on 21:19; Admin Dose 30 MG; Start 05/17/17 at 14:00; Stop 05/19/17 at 13: 59 Pantoprazole (Protonix Iv) 40 mg DAILY@06 IV Last administered on 05/18/17 06 :28; Admin Dose 40 MG; Start 05/18/17 at 06:00 Morphine Sulfate (morphine) 2 mg ONCE PRN IV PAIN LEVEL 6-10 Last administered on 05/18/17 12:05; Admin Dose 2 MG; Start 05/18/17 at 12:00; Stop 05/18/17 at 14:00 Morphine Sulfate (morphine) 6 mg Q4H PRN PO PAIN LEVEL 6-10; Start 05/18/17 at 16:00 Procedures Procedures PROCEDURE: US pelvis CLINICAL INDICATION: Pelvic pain TECHNIQUE: Transabdominal and endovaginal pelvic sonography was performed COMPARISON: Pelvic ultrasound 11/27/2016. Unenhanced abdomen/pelvis CT 2016. FINDINGS: The patient's last menstrual period began on 05/09/2017. The partially distended bladder is unremarkable. Small amount of free pelvic fluid. Uterus: Size: 7.5 x 4.2 x 5.5 cm Presentation: Retroflexed Appearance: Homogeneous echotexture Endometrium: 11.5 mm in thickness. No mass or increased vascularity seen. Cervix: Limited visualization reveals no abnormality Right ovary: Size: 4.5 x 2.8 x 2.9 cm Appearance: Few probable follicles Blood flow: Within normal limits Left ovary: Size: 3.7 x 1.9 x 1.8 cm Appearance: Few probable follicles Blood flow: Apparent decreased left ovarian blood flow, but this may be artifactual IMPRESSION: 1. Retroflexed uterus is unremarkable. Small amount of free pelvic fluid. Bilateral ovarian probable follicles. 2. Apparent decreased left ovarian blood flow, but this may be artifactual; the left ovary does not have the typical appearance of ovarian torsion (though intermittent torsion is in the differential diagnosis). If there is clinical concern, a repeat left ovarian Doppler sonogram may be performed for further analysis of left ovarian blood flow. If clinically indicated, correlate with serum test. Report called to the nurse caring for the patient on 05/17/2017 at 1625 hours. RPTAT: TT Ugo Shah, Physician Date Time Electronically viewed and signed by Ugo Shah Physician on 2016 16:35 JS/ CC: MEGHAN CURTIS PROCEDURE: XR Chest. CLINICAL INDICATION: Shortness of breath TECHNIQUE: Single portable view of the chest was obtained COMPARISON: No priors for comparison FINDINGS: The trachea is midline. The cardiac silhouette and pulmonary vascularity are within normal limits. The lungs are clear. The costophrenic angles are sharp. IMPRESSION: 1. No evidence of acute cardiopulmonary disease. RPTAT: AAPP Sukhwinder Maynard, Physician Date Time Electronically viewed and signed by Sukhwinder Maynard Physician on 05/17/2017 15:04 JL/ CC: MEGHAN CURTIS BOLATITO M. May 18, 2017 12:26
[2017-05-18 12:59] LABS: MONOCYTES % (M) 8 % (0-11); PLASMAC%(M) 2 % (0); PLATELET ESTIMATE SIG DECREASED; POLYCHROMASIA 3+ (0-0)
[2017-05-18] MEDS: LEVOFLOXACIN 500MG/D5W (PMX) 100 ML IVPB SCH (13:56)
[2017-05-18] MEDS: morphine LIQ (10 MG/5 ML) CUP PO PRN (15:36)
--- NOTE | 2017-05-18 15:37 | PN ---
Date/Time of Note Date/Time of Note DATE: 05/18/17 TIME: 15:21 Assessment/Plan VTE Prophylaxis VTE Prophylaxis Intervention: ambulation Lines/Catheters IV [facility] (from [facility] Peripheral IV Urinary Cath still in place: No Assessment/Plan Chief Complaint/Hosp Course Assessment: Abdominal pain GI etiology versus GLACIOLOGIST etiology HCG negative Status post pelvic ultrasound Findings: Decreased blood flow to left ovary, possible torsion Urine culture is negative Trichotillomania Depression/anxiety disorder Vaginal discharge - possible BV (may need wet prep) Plan: CT of abdomen and pelvis with IV/p.o. contrast today EGD on Monday Continue Protonix Pain management Consultation performed in collaboration with Dr. Grigsby Subjective: Patient reports feeling much worse today. She developed diarrhea overnight after dinner. Unable to eat regular diet due to nausea. Only taking liquids. Upon the physical examination pain is most severe in the left lower quadrant radiating to the entire abdomen. Midepigastric area is also tender. Patient's mother at the bedside, anxious about her daughter's condition. All questions have been answered. All imaging and laboratory data has been reviewed. Discussed the treatment plan with nursing staff. PHYSICAL EXAMINATION: GENERAL: Well developed, well nourished, alert & oriented x 3, in no acute distress SKIN: No lesions, pale, no stigmata chronic liver disease, no evidence of bleeding diathesis LYMPHATIC: No palpable lymphadenopathy. HEAD: Normocephalic, atraumatic, no tenderness. Multiple bald spots due to pulling the hair. Wearing a hat. EYES: Pupils equal reactive to light and accommodation, full extraocular movements, sclera clear, non-icteric, no discharge. EARS/NOSE AND THROAT: Ears normal, nose normal, oropharynx normal, oral membranes well hydrated without lesions. NECK: Supple, no masses, thyroid normal, JVP within normal limits, carotids normal without bruits. CHEST: Inspection within normal limits. CARDIOVASCULAR: Heart: Regular rate and rhythm, no murmurs, gallops or rubs. Peripheral pulses present within normal limits, no cyanosis, clubbing or edemas. No pulsatile abdominal mass RESPIRATORY: Lungs clear to auscultation and percussion, no wheezing, no rubs GASTROINTESTINAL AND LIVER: Abdomen: Soft, left lower quadrant and epigastric tenderness, non-distended, no hernias, no masses, no organomegaly, no ascites, guarding present, no rebound tenderness, normoactive bowel sounds. Rectal: Deferred. GENITOURINARY: Female genitalia within normal limits. EXTREMITIES: No cyanosis, clubbing or edema. Problems: Exam/Review of Systems Vital Signs Vitals Vital Signs Date Time Temp Pulse Resp B/P Pulse Ox O2 Delivery O2 Flow Rate FiO2 05/18/17 07:50 98.5 75 18 95/55 95 05/17/17 06:10 Room Air Intake and Output 05/17/17 05/17/17 05/18/17 15:00 23:00 07:00 Intake Total 110 ml 2160 ml 920 ml Balance 110 ml 2160 ml 920 ml Results Result Diagram: 05/18/17 1132 05/18/17 1132 Results 24 hrs Laboratory Tests Test 05/18/17 11:26 05/18/17 11:32 Serum HCG, Qualitative NEGATIVE White Blood Count 1.6 #L Red Blood Count 4.05 L Hemoglobin 12.7 Hematocrit 37.3 Mean Corpuscular Volume 92.1 Mean Corpuscular Hemoglobin 31.4 Mean Corpuscular Hemoglobin Concent 34.0 Red Cell Distribution Width 12.2 Platelet Count 53 #L Mean Platelet Volume 12.0 H Neutrophils % Segmented Neutrophils % (Manual) 43 Band Neutrophils % (Manual) 30 H Lymphocytes % Lymphocytes % (Manual) 17 Monocytes % Monocytes % (Manual) 8 Eosinophils % Basophils % Plasma Cells % (manual) 2 Nucleated Red Blood Cells % 0.0 Neutrophils # Neutrophils # (Manual) 0.7 L Band Neutrophils # 0.4 Absolute Lymphocytes (Manual) 0.2 L Lymphocytes # Monocytes # Absolute Monocytes (Manual) 0.1 L Eosinophils # Basophils # Plasma Cells # (manual) 0.0 Nucleated Red Blood Cells # Platelet Estimate SIG DECREASED Polychromasia 3+ Sodium Level 138 Potassium Level 3.6 Chloride Level 105 Carbon Dioxide Level 24 Anion Gap 13 Blood Urea Nitrogen 8 Creatinine 0.70 Glucose Level 76 Calcium Level 8.3 L Magnesium Level 1.7 Medications Medications Current Medications Levofloxacin/ Dextrose (Levaquin 500mg/ D5W 100 ml (Pmx)) 100 ml @ 100 mls/hr Q24H IVPB Last administered on 05/18/17t 13:56; Admin Dose 100 MLS/HR; Start 05/16/17 at 14:30 Acetaminophen/ Hydrocodone Bitart ([place] (5/325)) 1 tab Q6H PRN PO pain Last administered on 05/17/17 09:15; Admin Dose 1 TAB; Start 05/16/17 at 14:30 Ondansetron HCl (Zofran Inj) 4 mg Q6H PRN IV NAUSEA AND/OR VOMITING Last administered on 05/18/17 12:04; Admin Dose 4 MG; Start 05/16/17 at 14:30 Docusate Sodium (Colace) 100 mg BID PO Last administered on 05/17/17 08:15; Admin Dose 100 MG; Start 05/16/17 at 21:00 Famotidine (Pepcid) 20 mg DAILY PO Last administered on 05/18/17 09:00; Admin Dose 20 MG; Start 05/17/17 at 09:00 Ondansetron HCl (Zofran Inj) 4 mg Q4H PRN IV NAUSEA AND/OR VOMITING; Start at 02:00 Acetaminophen 650 mg 650 mg Q8H PRN PO PAIN AND OR ELEVATED TEMP Last administered on 05/17/17 13:21; Admin Dose 650 MG; Start 05/17/17 at 02:30 Sodium Chloride 1,000 ml @ 70 mls/hr [id number] IV Last administered on 04:15; Admin Dose 70 MLS/HR; Start 05/17/17 at 07:30 Ferric Sodium Gluconate Complex/ Sodium Chloride (Ferrlecit/NS) 110 ml @ 110 mls/hr Q24H IVPB Last administered on 05/18/17 11:39; Admin Dose 110 MLS/HR; Start 05/17/17 at 11:00; Stop 05/21/17 at 11:59 Ketorolac Tromethamine (Toradol) 30 mg Q6H PRN IV PAIN Last administered on 21:19; Admin Dose 30 MG; Start 05/17/17 at 14:00; Stop 05/19/17 at 13: 59 Pantoprazole (Protonix Iv) 40 mg DAILY@06 IV Last administered on 05/18/17 06 :28; Admin Dose 40 MG; Start 05/18/17 at 06:00 Morphine Sulfate (morphine) 6 mg Q4H PRN PO PAIN LEVEL 6-10; Start 05/18/17 at 16:00 Copies To: CC: KARTHIKEYAN GRIGSBY MD, ANASTASIA NP May 18, 2017 15:33
--- NOTE | 2017-05-18 16:55 | RADRPT ---
PROCEDURE: US Pelvis Transabdominal and Transvaginal. CLINICAL INDICATION: Pelvic pain. TECHNIQUE: Multiple sonographic images of the pelvis were obtained utilizing viera scale, Doppler a nd color flow imaging with transabdominal and endovaginal technique. The images were reviewed on a PACS workstation. COMPARISON: US PELVIS 05/17/2017 FINDINGS: The uterus is visualized and measures 8.3 x 4.3 x 5.3 cm. The endometrial echo complex measures 12.5 mm in thickness. No uterine masses are identified. The right ovary measures 4.6 x 2.7 x 3.4 cm . The left ovary measures 3.2 x 1.4 x 1.7 cm. Both ov reinier demonstrate a normal echogenicity and vascular flow. A few follicles are seen on both ovaries. A moderate amount of free fluid is identified in the left adnexa. Trace free fluid is seen in the ri ght adnexa. IMPRESSION: Moderate free fluid in the left adnexa and trace free fluid in the right adnexa. Etiology is uncerta in. If further characterization is needed CT or MRI could be helpful. Otherwise, unremarkable exam. If further characterization of the organs of the pelvis is needed MRI should be considered. RPTAT: AA .Anthony Wilson MD, Date Time Electronically viewed and signed by .Anthony Wilson MD, on 05/18/2017 13:38 .P/
[2017-05-18 20:22] VITALS: BP 100/51; RESP 19
[2017-05-19] VITALS (9 sets, daily range): BP systolic 97–110; BP diastolic 50–66; PULSE 63–77; RESP 14–22
[2017-05-19] MEDS: PANTOPRAZOLE 40 MG INJ IV SCH (05:37)
[2017-05-19 06:01] LABS: CALCIUM 8.2 mg/dl (8.4-10.2); CREATININE 0.59 mg/dl (0.44-1.00); POTASSIUM 3.6 mmol/L (3.5-5.1)
[2017-05-19 06:32] LABS: ABNORMAL IP MESSAGE 1; HEMATOCRIT 36.3 % (37.0-47.0); HEMOGLOBIN 12.6 g/dl (12.0-16.0); MEAN CORPUSCULAR HGB CONC 34.7 g/dl (32.0-37.0); MEAN CORPUSCULAR VOLUME 92.1 fl (82.0-101.0); MEAN PLATELET VOLUME 12.6 fl (7.4-10.4); PLATELET COUNT 62 10^3/UL (140-415); RED BLOOD COUNT 3.94 10^6/ul (4.20-5.40); RED CELL DISTRIBUTION WIDTH 12.2 % (11.5-14.5); WHITE BLOOD COUNT 2.1 10^3/ul (4.8-10.8)
[2017-05-19 06:51] LABS: POSITIVE DIFF @See below
[2017-05-19 08:58] LABS: ANISOCYTOSIS 1+ (0-0); GIANT THROMBO% (M) 3 % (0-0); MICROCYTOSIS 1+ (0-0); MONOCYTES % (M) 10 % (0-11); PLATELET ESTIMATE SIG DECREASED; POLYCHROMASIA 1+ (0-0); REACTIVE LYMPHOCYTES% (M) 2 % (0-0)
[2017-05-19] MEDS: DOCUSATE SODIUM 100 MG CAP PO SCH ×2 (09:00→21:00)
--- NOTE | 2017-05-19 09:46 | PN ---
Date/Time of Note Date/Time of Note DATE: 05/19/17 TIME: 09:34 Assessment/Plan VTE Prophylaxis VTE Prophylaxis Intervention: ambulation, SCD's Lines/Catheters IV Catheter Type (from Nrsg): Peripheral IV Urinary Cath still in place: No Assessment/Plan Assessment/Plan 21 yo f who presents with fatigue and lower abd pain x2-3days admitted and managed for the followin. Severe Neutropenia and Thrombocytopenia: improving ,with current measures ( prozac held / iron replacement / UTI on treatment) Appreciate oncology review, oncology feels Prozac is likely precipitant. 2. Gram variable UTI with fever: no more fever >24hrs / cultures now growing gram variable rods/ continue Levaquin / f/u final sensitivities / complete 5 days abx regimen 3. Chronic Trichotillomania with Severe anxiety d/o: Psych review pending / Prozac d/c 2/ #1 4. Severe iron deficiency which likely is chronic per hematology based on CBC, ok to replenish however / not likely a cause of #1 5. Diffuse severe abd pain: Improved Repeat pelvic USS confirms good flow in L ovary / CT abd /pelvis ordered per GI with IV and PO contrast still pending / Patient also planned for endoscopy today / await findings Dispo: F/u findings endoscopy and CT Await Psych recs Continue supportive care with antipyretics and pain control if indicated, and further interventions will depend on her clinical course. This plan of care has been discussed with the patient, questions have been answered / also spoke with heme/onc in detail. Subjective 24 Hr Interval Summary Free Text/Dictation patient reports feeling better now, planned for psych review and endoscopy today Exam/Review of Systems Vital Signs Vitals Vital Signs Date Time Temp Pulse Resp B/P Pulse Ox O2 Delivery O2 Flow Rate FiO2 05/19/17 07:59 98.0 58 18 103/50 100 05/17/17 06:10 Room Air Intake and Output 05/18/17 05/18/17 05/19/17 15:00 23:00 07:00 Intake Total 200 ml 1650 ml 1120 ml Balance 200 ml 1650 ml 1120 ml Exam Constitutional: alert, no distress, hat on Head: atraumatic, normocephalic Eyes: PERRL Neck: supple Respiratory: clear to auscultation Cardiovascular: regular rate and rhythm Gastrointestinal: bowel sounds, soft Musculoskeletal: nl extremities to inspection Neurological: nl mental status Results Result Diagram: 05/19/17 0438 05/19/17 0438 Results 24 hrs Laboratory Tests Test 05/18/17 11:26 05/18/17 11:32 05/19/17 04:38 Serum HCG, Qualitative NEGATIVE White Blood Count 1.6 #L 2.1 #L Red Blood Count 4.05 L 3.94 L Hemoglobin 12.7 12.6 Hematocrit 37.3 36.3 L Mean Corpuscular Volume 92.1 92.1 Mean Corpuscular Hemoglobin 31.4 32.0 Mean Corpuscular Hemoglobin Concent 34.0 34.7 Red Cell Distribution Width 12.2 12.2 Platelet Count 53 #L 62 L Mean Platelet Volume 12.0 H 12.6 H Neutrophils % Segmented Neutrophils % (Manual) 43 29 L Band Neutrophils % (Manual) 30 H 40 H Lymphocytes % Lymphocytes % (Manual) 17 19 Monocytes % Monocytes % (Manual) 8 10 Eosinophils % Basophils % Plasma Cells % (manual) 2 Nucleated Red Blood Cells % 0.0 0.0 Neutrophils # Neutrophils # (Manual) 0.7 L 0.6 L Band Neutrophils # 0.4 0.8 H Absolute Lymphocytes (Manual) 0.2 L 0.3 L Lymphocytes # Monocytes # Absolute Monocytes (Manual) 0.1 L 0.2 L Eosinophils # Basophils # Plasma Cells # (manual) 0.0 Nucleated Red Blood Cells # Platelet Estimate SIG DECREASED SIG DECREASED Polychromasia 3+ 1+ Sodium Level 138 135 Potassium Level 3.6 3.6 Chloride Level 105 104 Carbon Dioxide Level 24 20 L Anion Gap 13 15 Blood Urea Nitrogen 8 4 L Creatinine 0.70 0.59 Glucose Level 76 73 Calcium Level 8.3 L 8.2 L Magnesium Level 1.7 Reactive Lymphocytes % (Manual) 2 H Reactive Lymphocytes # 0.0 Giant Platelets 3 H Anisocytosis 1+ Microcytosis 1+ Ferritin 774.0 H Albumin 3.0 L Medications Medications Current Medications Levofloxacin/ Dextrose (Levaquin 500mg/ D5W 100 ml (Pmx)) 100 ml @ 100 mls/hr Q24H IVPB Last administered on 05/18/17t 13:56; Admin Dose 100 MLS/HR; Start 05/16/17 at 14:30 Acetaminophen/ Hydrocodone Bitart ([place] (5/325)) 1 tab Q6H PRN PO pain Last administered on 05/17/17 09:15; Admin Dose 1 TAB; Start 05/16/17 at 14:30 Ondansetron HCl (Zofran Inj) 4 mg Q6H PRN IV NAUSEA AND/OR VOMITING Last administered on 05/18/17 12:04; Admin Dose 4 MG; Start 05/16/17 at 14:30 Docusate Sodium (Colace) 100 mg BID PO Last administered on 05/17/17 08:15; Admin Dose 100 MG; Start 05/16/17 at 21:00 Famotidine (Pepcid) 20 mg DAILY PO Last administered on 05/18/17 09:00; Admin Dose 20 MG; Start 05/17/17 at 09:00 Ondansetron HCl (Zofran Inj) 4 mg Q4H PRN IV NAUSEA AND/OR VOMITING; Start at 02:00 Acetaminophen 650 mg 650 mg Q8H PRN PO PAIN AND OR ELEVATED TEMP Last administered on 05/17/17 13:21; Admin Dose 650 MG; Start 05/17/17 at 02:30 Sodium Chloride 1,000 ml @ 70 mls/hr [id number] IV Last administered on 20:57; Admin Dose 70 MLS/HR; Start 05/17/17 at 07:30 Ferric Sodium Gluconate Complex/ Sodium Chloride (Ferrlecit/NS) 110 ml @ 110 mls/hr Q24H IVPB Last administered on 05/18/17 11:39; Admin Dose 110 MLS/HR; Start 05/17/17 at 11:00; Stop 05/21/17 at 11:59 Ketorolac Tromethamine (Toradol) 30 mg Q6H PRN IV PAIN Last administered on 21:19; Admin Dose 30 MG; Start 05/17/17 at 14:00; Stop 05/19/17 at 13: 59 Pantoprazole (Protonix Iv) 40 mg DAILY@06 IV Last administered on 05/19/17 05 :37; Admin Dose 40 MG; Start 05/18/17 at 06:00 Morphine Sulfate (morphine) 6 mg Q4H PRN PO PAIN LEVEL 6-10 Last administered on 05/18/17 15:36; Admin Dose 6 MG; Start 05/18/17 at 16:00 Procedures Procedures PROCEDURE: US Pelvis Transabdominal and Transvaginal. CLINICAL INDICATION: Pelvic pain. TECHNIQUE: Multiple sonographic images of the pelvis were obtained utilizing viera scale, Doppler and color flow imaging with transabdominal and endovaginal technique. The images were reviewed on a PACS workstation. COMPARISON: US PELVIS 05/17/2017 FINDINGS: The uterus is visualized and measures 8.3 x 4.3 x 5.3 cm. The endometrial echo complex measures 12.5 mm in thickness. No uterine masses are identified. The right ovary measures 4.6 x 2.7 x 3.4 cm . The left ovary measures 3.2 x 1.4 x 1.7 cm. Both ovaries demonstrate a normal echogenicity and vascular flow. A few follicles are seen on both ovaries. A moderate amount of free fluid is identified in the left adnexa. Trace free fluid is seen in the right adnexa. IMPRESSION: Moderate free fluid in the left adnexa and trace free fluid in the right adnexa. Etiology is uncertain. If further characterization is needed CT or MRI could be helpful. Otherwise, unremarkable exam. If further characterization of the organs of the pelvis is needed MRI should be considered. RPTAT: AA .Anthony Wilson MD, MD Date Time Electronically viewed and signed by .Anthony Wilson MD, on 05/18/2017 13:38 .P/ CC: MEGHAN CURTIS BOLATITO M. May 19, 2017 09:46
[2017-05-19] MEDS: FAMOTIDINE 20 MG TAB PO SCH (09:50)
[2017-05-19] MEDS: morphine LIQ (10 MG/5 ML) CUP PO PRN (09:53)
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
--- NOTE | 2017-05-19 10:47 | PN ---
Date/Time of Note Date/Time of Note DATE: 05/19/17 TIME: 10:42 Assessment/Plan VTE Prophylaxis VTE Prophylaxis Intervention: ambulation, other (thrombocytopenia) Lines/Catheters IV [facility]from [facility] Peripheral IV Urinary Cath still in place: No Assessment/Plan Chief Complaint/Hosp Course 21 yo woman with presentation to ER because of abdominal pain. She was found to have pancytopenia and urinary tract infection. She also had been started about two months ago on Prozac, which helped her psychiatric issues but she denies any blood counts as outpatient. Last CBC's were in November and June in the ER. She also is aware of ovarian cysts but overall she describes herself as a healthy young woman. She denies taking any drugs beside Prozac. She does use marijuana but denies use of needles or other recreational drugs. There are no known drug allergies. Father is not aware of anything else but he says she often does not listen to him. Problems: Assessment/Plan Pt is due to have EGD later today. Note that leucopenia is stable with ANC 1400 but absolute lymphocyte count is only 300. Thrombocytopenia is also stable. CT has not shown cause of abdominal pain; EGD to be done. Note that she also has poor nutrition, as manifest by lymphopenia and hypoalbuminemia. I agree with Dr. Palacios that psychiatric involvement would be helpful. Prozac has been recently stopped but no improvement in the pancytopenia is yet seen. If she does not improve next week, then a bone marrow may be indicated. Subjective 24 Hr Interval Summary Free Text/Dictation Pt comfortable after taking morphine Exam/Review of Systems Vital Signs Vitals Vital Signs Date Time Temp Pulse Resp B/P Pulse Ox O2 Delivery O2 Flow Rate FiO2 05/19/17 07:59 98.0 58 18 103/50 100 05/17/17 06:10 Room Air Intake and Output 05/18/17 05/18/17 05/19/17 15:00 23:00 07:00 Intake Total 200 ml 1650 ml 1120 ml Balance 200 ml 1650 ml 1120 ml Exam Constitutional: alert, oriented Psych: no complaints Head: normocephalic Eyes: nl conjunctiva ENMT: nl external ears & nose Neck: supple Respiratory: clear to auscultation Cardiovascular: regular rate and rhythm Gastrointestinal: nl liver, spleen, non-tender, soft Lymph: nl lymph nodes Results Result Diagram: 05/19/17 0438 05/19/17 0438 Results 24 hrs Laboratory Tests Test 05/18/17 11:26 05/18/17 11:32 05/19/17 04:38 Serum HCG, Qualitative NEGATIVE White Blood Count 1.6 #L 2.1 #L Red Blood Count 4.05 L 3.94 L Hemoglobin 12.7 12.6 Hematocrit 37.3 36.3 L Mean Corpuscular Volume 92.1 92.1 Mean Corpuscular Hemoglobin 31.4 32.0 Mean Corpuscular Hemoglobin Concent 34.0 34.7 Red Cell Distribution Width 12.2 12.2 Platelet Count 53 #L 62 L Mean Platelet Volume 12.0 H 12.6 H Neutrophils % Segmented Neutrophils % (Manual) 43 29 L Band Neutrophils % (Manual) 30 H 40 H Lymphocytes % Lymphocytes % (Manual) 17 19 Monocytes % Monocytes % (Manual) 8 10 Eosinophils % Basophils % Plasma Cells % (manual) 2 Nucleated Red Blood Cells % 0.0 0.0 Neutrophils # Neutrophils # (Manual) 0.7 L 0.6 L Band Neutrophils # 0.4 0.8 H Absolute Lymphocytes (Manual) 0.2 L 0.3 L Lymphocytes # Monocytes # Absolute Monocytes (Manual) 0.1 L 0.2 L Eosinophils # Basophils # Plasma Cells # (manual) 0.0 Nucleated Red Blood Cells # Platelet Estimate SIG DECREASED SIG DECREASED Polychromasia 3+ 1+ Sodium Level 138 135 Potassium Level 3.6 3.6 Chloride Level 105 104 Carbon Dioxide Level 24 20 L Anion Gap 13 15 Blood Urea Nitrogen 8 4 L Creatinine 0.70 0.59 Glucose Level 76 73 Calcium Level 8.3 L 8.2 L Magnesium Level 1.7 Reactive Lymphocytes % (Manual) 2 H Reactive Lymphocytes # 0.0 Giant Platelets 3 H Anisocytosis 1+ Microcytosis 1+ Ferritin 774.0 H Albumin 3.0 L Medications Medications Current Medications Levofloxacin/ Dextrose (Levaquin 500mg/ D5W 100 ml (Pmx)) 100 ml @ 100 mls/hr Q24H IVPB Last administered on 05/18/17 13:56; Admin Dose 100 MLS/HR; Start 05/16/17 at 14:30 Acetaminophen/ Hydrocodone Bitart ([place] (5/325)) 1 tab Q6H PRN PO pain Last administered on 05/17/17 09:15; Admin Dose 1 TAB; Start 05/16/17 at 14:30 Ondansetron HCl (Zofran Inj) 4 mg Q6H PRN IV NAUSEA AND/OR VOMITING Last administered on 05/18/17 12:04; Admin Dose 4 MG; Start 05/16/17 at 14:30 Docusate Sodium (Colace) 100 mg BID PO Last administered on 05/17/17 08:15; Admin Dose 100 MG; Start 05/16/17 at 21:00 Famotidine (Pepcid) 20 mg DAILY PO Last administered on 05/19/17 09:50; Admin Dose 20 MG; Start 05/17/17 at 09:00 Ondansetron HCl (Zofran Inj) 4 mg Q4H PRN IV NAUSEA AND/OR VOMITING; Start at 02:00 Acetaminophen 650 mg 650 mg Q8H PRN PO PAIN AND OR ELEVATED TEMP Last administered on 05/17/17 13:21; Admin Dose 650 MG; Start 05/17/17 at 02:30 Sodium Chloride 1,000 ml @ 70 mls/hr [id number] IV Last administered on 20:57; Admin Dose 70 MLS/HR; Start 05/17/17 at 07:30 Ferric Sodium Gluconate Complex/ Sodium Chloride (Ferrlecit/NS) 110 ml @ 110 mls/hr Q24H IVPB Last administered on 05/18/17 11:39; Admin Dose 110 MLS/HR; Start 05/17/17 at 11:00; Stop 05/21/17 at 11:59 Ketorolac Tromethamine (Toradol) 30 mg Q6H PRN IV PAIN Last administered on 21:19; Admin Dose 30 MG; Start 05/17/17 at 14:00; Stop 05/19/17 at 13: 59 Pantoprazole (Protonix Iv) 40 mg DAILY@06 IV Last administered on 05/19/17 05 :37; Admin Dose 40 MG; Start 05/18/17 at 06:00 Morphine Sulfate (morphine) 6 mg Q4H PRN PO PAIN LEVEL 6-10 Last administered on 05/19/17 09:53; Admin Dose 6 MG; Start 05/18/17 at 16:00 SHANAE REICH MD 15, 2017 10:47
[2017-05-19] MEDS: SOD FERRIC GLUC COMPLX 125 MG in SOD CHLORIDE 0.9% 100 ML IVPB SCH (11:08)
[2017-05-19] MEDS: SOD CHLORIDE 0.9% 1,000 ML IV SCH (11:14)
[2017-05-19] MEDS: LEVOFLOXACIN 500MG/D5W (PMX) 100 ML IVPB SCH (15:08)
[2017-05-19] MEDS ORDERED: ONDANSETRON 4 MG INJ ONE (17:22)
[2017-05-19] MEDS: ONDANSETRON 4 MG INJ IV PRN (17:25)
[2017-05-19] MEDS ORDERED: HYDROmorphONE (0.2 MG/ML) 10ML SYG IV PRN (17:30)
[2017-05-19] MEDS ORDERED: ONDANSETRON 4 MG INJ IV PRN (17:30)
[2017-05-19] MEDS ORDERED: PROPOFOL 20 ML ONE (17:57)
[2017-05-19] MEDS ORDERED: MIDAZOLAM 1 MG/ML 2 ML INJ ONE (17:57)
[2017-05-19] MEDS ORDERED: LIDOCAINE 2% (SDV) 5 ML INJ ONE (17:57)
--- NOTE | 2017-05-19 18:18 | OPPN ---
Date/Time of Note Date/Time of Note DATE: 05/19/17 TIME: 18:16 Proc Note GI Procedure Date 05/19/17 Indication: other (Abdominal pain) Pre-procedure Diagnosis Abdominal pain Post-procedure Diagnosis Impression: Severe erosive esophagitis. Probable Cristine esophagitis. Biopsies obtained Moderate gastritis. Rule out H. pylori infection. Biopsies obtained Otherwise normal EGD. Plan: Continue PPI Add Diflucan 100 mg daily 7 days Review pathology Advance diet . Procedure Performed: Endoscopy (With biopsies) Surgeon KARTHIKEYAN PACE MD See signature line Investment Accountant none Anesthesia Type: MAC Anesthesiologist: THAO HAWKINS MD Tourniquet Time none EBL none Transfusion required none Biopsy 1: Gastric body and antrum Biopsy 2: Distal esophagus Grafts/Implants none Tubes/Drains none Complication(s) none Procedure Description After informed consent, with the patient/relatives understanding the procedure, its indications, potential risks and complications, including but not limited to : allergic reaction, bleeding, perforation or infection, and after all pertinent questions were answered to the patients satisfaction, the patient/ relatives signed witnessed informed consent. Following this, premedication was administered slowly IV push under careful cardiovascular and respiratory monitoring with pulse oximetry, automatic blood pressure, and agriculture mechanic. Once the sedative effect was achieved the patient was place in the left lateral decubitus, the panendoscope was introduced and advanced under visual control. Careful examination of the upper gastrointestinal tract, both on insertion as well as withdrawal of the instrument disclosing the following findings: ESOPHAGUS: the mucosa of the entire esophagus was carefully examined and showed the following findings: There is severe erythema, edema as well as erosion of the mucosa. There is whitish exudate suggestive of Cristine esophagitis. Biopsies were obtained. Otherwise the mucosa appears within normal limits. There is no evidence of varices, neoplasm, or stricture. No Hiatal Hernia identified. STOMACH: Upon entrance to the stomach air was insufflated, the gastric espinal distended normally. The mucosa of the fundus, body and antrum of the stomach was carefully examined both head-on and on retroflexion, and showed the following findings: There is moderate erythema and edema the mucosa of the body and antrum the stomach. Biopsies were obtained to rule out H. pylori infection. Otherwise the mucosa appears within normal limits with no abnormalities. There is no evidence of ulcers or neoplasm. PYLORUS: The pylorus was carefully examined and showed the following findings: the pylorus appears patent and within normal limits, with no evidence of gastric outlet obstruction. DUODENUM: The duodenal mucosa was carefully examined in the duodenal bulb as well as the second portion of the duodenum and showed the following findings: the mucosa appears unremarkable with no evidence of duodenitis, ulcer or neoplasm. Copies To: CC: KARTHIKEYAN PACE MD, MORDO MD May 19, 2017 18:18
[2017-05-19] MEDS: FLUCONAZOLE 100 MG TAB PO SCH (18:30)
--- NOTE | 2017-05-19 18:41 | HPN ---
Date/Time of Note Date/Time of Note DATE: 05/19/17 TIME: 17:41 KARTHIKEYAN PACE MD May 19, 2017 18:41
[2017-05-19] MEDS ORDERED: IOHEXOL 300MG/ML 150 ML BTL ONE (21:55)
[2017-05-19] MEDS ORDERED: SOD CHLORIDE 0.9% 100 ML ONE (21:55)
[2017-05-20] MEDS: ONDANSETRON 4 MG INJ IV PRN ×2 (00:58→20:47)
[2017-05-20] MEDS: morphine LIQ (10 MG/5 ML) CUP PO PRN ×2 (00:59→17:30)
[2017-05-20 03:09] VITALS: BP 93/54; RESP 18
[2017-05-20 05:29] LABS: ABNORMAL IP MESSAGE 1; HEMOGLOBIN 11.9 g/dl (12.0-16.0); MEAN CORPUSCULAR VOLUME 91.1 fl (82.0-101.0); MEAN PLATELET VOLUME 11.9 fl (7.4-10.4); PLATELET COUNT 57 10^3/UL (140-415); RED BLOOD COUNT 3.84 10^6/ul (4.20-5.40); RED CELL DISTRIBUTION WIDTH 12.3 % (11.5-14.5); WHITE BLOOD COUNT 2.5 10^3/ul (4.8-10.8)
[2017-05-20 05:38] LABS: POSITIVE DIFF @See below
[2017-05-20] MEDS: SOD CHLORIDE 0.9% 1,000 ML IV SCH ×2 (05:43→20:49)
[2017-05-20] MEDS: PANTOPRAZOLE 40 MG INJ IV SCH (05:44)
[2017-05-20 06:22] LABS: CALCIUM 8.5 mg/dl (8.4-10.2); CREATININE 0.62 mg/dl (0.44-1.00); MAGNESIUM 1.7 mg/dl (1.7-2.5); POTASSIUM 3.6 mmol/L (3.5-5.1)
[2017-05-20] MEDS: FLUCONAZOLE 100 MG TAB PO SCH (08:27)
[2017-05-20 08:42] VITALS: BP 103/59; RESP 18
[2017-05-20] MEDS: DOCUSATE SODIUM 100 MG CAP PO SCH ×2 (09:00→20:50)
--- NOTE | 2017-05-20 09:05 | CONS ---
Date/Time of Note Date/Time of Note DATE: 05/20/17 TIME: 09:01 Consult Date/Type/Reason Admit Date/Time May 16, 2017 at 13:18 Initial Consult Date 05/17/17 Type of Consultation: GI Subjective No overnight events. Less abdominal pain. No sob or chest pain. Denies night sweats. Objective Vital Signs Date Time Temp Pulse Resp B/P Pulse Ox O2 Delivery O2 Flow Rate FiO2 05/20/17 08:42 98.5 77 18 103/59 95 05/19/17 20:45 Nasal Cannula 2 Intake and Output 05/19/17 05/19/17 05/20/17 15:00 23:00 07:00 Intake Total 470 ml 780 ml 1770 ml Output Total 1100 ml Balance 470 ml 780 ml 670 ml Exam NAD/A&Ox4 OP clear RRR no m/g/r CTA B Soft, mild distension, no TTP, No hsm No c/c/e Results/Medications Result Diagram: 05/20/17 0438 05/20/17 0438 Results 24 hrs Laboratory Tests Test 05/20/17 04:38 White Blood Count 2.5 L Red Blood Count 3.84 L Hemoglobin 11.9 L Hematocrit 35.0 L Mean Corpuscular Volume 91.1 Mean Corpuscular Hemoglobin 31.0 Mean Corpuscular Hemoglobin Concent 34.0 Red Cell Distribution Width 12.3 Platelet Count 57 L Mean Platelet Volume 11.9 H Neutrophils % Lymphocytes % Monocytes % Eosinophils % Basophils % Nucleated Red Blood Cells % 0.0 Neutrophils # Lymphocytes # Monocytes # Eosinophils # Basophils # Nucleated Red Blood Cells # Sodium Level 138 Potassium Level 3.6 Chloride Level 103 Carbon Dioxide Level 25 Anion Gap 14 Blood Urea Nitrogen 3 L Creatinine 0.62 Glucose Level 76 Calcium Level 8.5 Magnesium Level 1.7 Medications Current Medications Levofloxacin/ Dextrose (Levaquin 500mg/ D5W 100 ml (Pmx)) 100 ml @ 100 mls/hr Q24H IVPB Last administered on 05/19/17 15:08; Admin Dose 100 MLS/HR; Start 05/16/17 at 14:30 Acetaminophen/ Hydrocodone Bitart ([place] (5/325)) 1 tab Q6H PRN PO pain Last administered on 05/17/17 09:15; Admin Dose 1 TAB; Start 05/16/17 at 14:30 Ondansetron HCl (Zofran Inj) 4 mg Q6H PRN IV NAUSEA AND/OR VOMITING Last administered on 05/19/17 17:25; Admin Dose 4 MG; Start 05/16/17 at 14:30 Docusate Sodium (Colace) 100 mg BID PO Last administered on 05/17/17 08:15; Admin Dose 100 MG; Start 05/16/17 at 21:00 Ondansetron HCl (Zofran Inj) 4 mg Q4H PRN IV NAUSEA AND/OR VOMITING Last administered on 05/20/17 00:58; Admin Dose 4 MG; Start 05/17/17 at 02:00 Acetaminophen 650 mg 650 mg Q8H PRN PO PAIN AND OR ELEVATED TEMP Last administered on 05/17/17 13:21; Admin Dose 650 MG; Start 05/17/17 at 02:30 Sodium Chloride 1,000 ml @ 70 mls/hr [id number] IV Last administered on 05:43; Admin Dose 70 MLS/HR; Start 05/17/17 at 07:30 Ferric Sodium Gluconate Complex/ Sodium Chloride (Ferrlecit/NS) 110 ml @ 110 mls/hr Q24H IVPB Last administered on 05/19/17 11:08; Admin Dose 110 MLS/HR; Start 05/17/17 at 11:00; Stop 05/21/17 at 11:59 Pantoprazole (Protonix Iv) 40 mg DAILY@06 IV Last administered on 05/20/17 05 :44; Admin Dose 40 MG; Start 05/18/17 at 06:00 Morphine Sulfate (morphine) 6 mg Q4H PRN PO PAIN LEVEL 6-10 Last administered on 05/20/17 00:59; Admin Dose 6 MG; Start 05/18/17 at 16:00 Fluconazole (Diflucan) 100 mg DAILY PO Last administered on 05/20/17 08:27; Admin Dose 100 MG; Start 05/19/17 at 18:30; Stop 05/26/17 at 08:59 Cyanocobalamin (Vitamin B12 Inj) 1,000 mcg DAILY IM ; Start 05/20/17 at 10:00 Assessment/Plan Additional Assessment/Plan 21yo admitted with abdominal pain found to be pancytopenic. New since 11/2016. Vit B12 a bit low but not clear if that is the culprit. Prozac stopped with the thought that the cytopenias may be drug induced. No improvement since medication stopped. No signs of any intra-abdominal disease. Spleen a bit larger than normal. -Screen for pernicious anemia. Check antiparietal cell ab, anti-intrinsic factor ab. -Start B12 1mg IM daily empirically -Check SPEP with IF -Can send off peripheral blood for flow cytometry but pt likely needs bone marrow biopsy to rule out lymphoproliferative, myeloid disorder, aplastic anemia. Will f/u with you. Bud Rey MD Hematology Covering for [facility] May 20, 2017 09:05
--- NOTE | 2017-05-20 09:17 | RADRPT ---
PROCEDURE: CT Abdomen and Pelvis with contrast. CLINICAL INDICATION: Left lower quadrant abdominal pain. TECHNIQUE: CT scan of the abdomen and pelvis with contrast was performed on a multi-detector [facility]. The patient was scanned following the uncomplicated intravenous administration of 75 ml cont rast. Coronal and sagittal reformatted images were obtained from the axial source images. DICOM jordyn ges are available. CTDI: 5.06 mGy and DLP: 281.27 mGy.cm. One or more of the following dose reduction techniques were utilized: Automated exposure control, a djustment of the mA and/or kV according to patient size, use of iterative reconstruction technique. COMPARISON: Pelvic ultrasound 05/18/[address] abdomen and pelvis 05/16/2017 FINDINGS: Pulmonary: Trace bilateral pleural effusions. Mild bilateral lower lobe subsegmental atelectasis.. Cardiac: Normal heart size. Liver: Normal appearance of the liver. Geographic low density along the falciform ligament most lik luis representing focal fat. No focal enhancing liver mass. No intrahepatic or extrahepatic biliary d ilatation. Gallbladder: Normal appearance of the gallbladder without stones or wall thickening. Spleen: Mildly enlarged spleen measuring 12.5 cm. Normal enhancement. No focal lesion. Pancreas: Normal enhancement without ductal dilation. Adrenal glands: Normal morphology without thickening or mass. Genitourinary: Normal symmetric enhancement of the kidneys. No renal stone or hydronephrosis. Asmita l appearance of the bladder. Vascular: The aorta is normal in caliber. Separate origin of the celiac artery and splenic artery o ff of the aorta. Patent mesenteric, hepatic and renal vessels. Gastrointestinal: Normal appearance of the mildly distended stomach containing contrast. Nondilated small bowel and colon. Normal appendix. Peritoneum: Small amount of peritoneal free fluid in the bilateral pericolic gutters and Morison's p ouch. No peritoneal free air. No peritoneal or retroperitoneal adenopathy. No rim-enhancing fluid co llections. Pelvic organs: No pelvic mass. Normal appearance of the uterus. Prominent bilateral inguinal lymph nodes, largest on the left measuring 2.0 x 1.6 x 1.4 cm.. Small amount of pelvic free fluid most pro nounced in the right adnexa. Osseous structures: No suspicious osseous lesions. IMPRESSION: 1. Small amount of peritoneal and pelvic free fluid without rim-enhancing collection. Unclear etiolo gy. 2. Trace bilateral pleural effusions. 3. Prominent bilateral inguinal nodes are likely reactive. 4. Probable focal hepatic fat along the falciform ligament. 5. Mild splenomegaly. RPTAT:AAJJ Ventura Jeffery Physician Date Time Electronically viewed and signed by Ventura Jeffery Physician on 05/20/2017 09:17 /
[2017-05-20] MEDS: CYANOCOBALAMIN 1000 MCG INJ IM SCH (10:11)
[2017-05-20 10:16] LABS: ANISOCYTOSIS 1+ (0-0); BURR CELLS 1+ (0-0); GIANT THROMBO% (M) 1 % (0-0); METAMYELOCYTES %M 1 % (0-0); MONOCYTES % (M) 7 % (0-11); PLATELET ESTIMATE DECREASED; POIKILOCYTOSIS 2+ (0-0)
[2017-05-20 11:36] LABS: RETICULOCYTE COUNT % 0.5 % (0.5-1.5)
[2017-05-20 12:01] LABS: LACTATE DEHYDROGENASE 1253 IU/L (313-618)
[2017-05-20 12:10] LABS: IMMUNOGLOBULIN A 219 mg/dl (70-400); IMMUNOGLOBULIN G 834 mg/dl (700-1600); IMMUNOGLOBULIN M 112 mg/dl (40-230)
[2017-05-20] MEDS: SOD FERRIC GLUC COMPLX 125 MG in SOD CHLORIDE 0.9% 100 ML IVPB SCH (12:15)
--- NOTE | 2017-05-20 14:14 | PN ---
Date/Time of Note Date/Time of Note DATE: 05/20/17 TIME: 14:11 Assessment/Plan VTE Prophylaxis VTE Prophylaxis Intervention: anti-embolic stocking Lines/Catheters [facility] ([facility]): Peripheral IV Urinary Cath still in place: No Assessment/Plan Problems: (1) Leukopenia Status: Acute Comment: Patient has been seen by oncology/hematology air quality consultant. She is empirically been given vitamin B12 although not certain I think this necessarily accounts for all this. If this does not resolve spontaneously shortly then she will absolutely need a bone marrow biopsy Qualifiers: Leukopenia type: unspecified Qualified Code: D72.819 - Leukopenia, unspecified type (2) Thrombocytopenia Status: Acute Comment: As above. I suspect she may end up needing a bone marrow biopsy but if this does improve on its own that will be quite beneficial (3) Iron deficiency anemia Status: Chronic Comment: Unclear what the source of the blood loss is although it is a fair bet that the Cristine esophagitis and severe esophagitis has something to do with it. She is being repleted with IV iron. Qualifiers: Iron deficiency anemia type: chronic blood loss Qualified Code: D50.0 - Iron deficiency anemia due to chronic blood loss (4) Cristine esophagitis Status: Acute Comment: She is on an antifungal agent as well as reflux medications (5) Vaginitis due to Gardnerella vaginalis Status: Acute Comment: This needs to be treated I am going to go ahead and treat her with metronidazole. Please note that her partner will also need to be treated. Please note HIV negative status Subjective 24 Hr Interval Summary Free Text/Dictation 21-year-old female who reports she is starting to feel better. Constitutional: no complaints (Denies fevers chills or sweats, no B symptoms) Respiratory: no complaints Cardiovascular: no complaints Gastrointestinal: no complaints Exam/Review of Systems Vital Signs Vitals Vital Signs Date Time Temp Pulse Resp B/P Pulse Ox O2 Delivery O2 Flow Rate FiO2 05/20/17 08:42 98.5 77 18 103/59 95 05/19/17 20:45 Nasal Cannula 2 Intake and Output 05/19/17 05/19/17 05/20/17 15:00 23:00 07:00 Intake Total 470 ml 780 ml 1770 ml Output Total 1100 ml Balance 470 ml 780 ml 670 ml Exam Constitutional: alert, oriented Neck: non-tender, supple Respiratory: clear to auscultation, normal air movement Cardiovascular: nl pulses, regular rate and rhythm Results Result Diagram: 05/20/17 0438 05/20/17 0438 Results 24 hrs Laboratory Tests Test 05/20/17 04:38 05/20/17 11:25 White Blood Count 2.5 L Red Blood Count 3.84 L Hemoglobin 11.9 L Hematocrit 35.0 L Mean Corpuscular Volume 91.1 Mean Corpuscular Hemoglobin 31.0 Mean Corpuscular Hemoglobin Concent 34.0 Red Cell Distribution Width 12.3 Platelet Count 57 L Mean Platelet Volume 11.9 H Neutrophils % Segmented Neutrophils % (Manual) 41 Band Neutrophils % (Manual) 19 H Lymphocytes % Lymphocytes % (Manual) 27 Monocytes % Monocytes % (Manual) 7 Eosinophils % Basophils % Metamyelocytes % (manual) 1 H Nucleated Red Blood Cells % 0.0 Neutrophils # Neutrophils # (Manual) 1.0 L Band Neutrophils # 0.4 Absolute Lymphocytes (Manual) 0.6 L Lymphocytes # Monocytes # Absolute Monocytes (Manual) 0.1 L Eosinophils # Basophils # Metamyelocytes # 0.0 Nucleated Red Blood Cells # Platelet Estimate DECREASED Giant Platelets 1 H Poikilocytosis 2+ Anisocytosis 1+ Macrocytosis 1+ Sodium Level 138 Potassium Level 3.6 Chloride Level 103 Carbon Dioxide Level 25 Anion Gap 14 Blood Urea Nitrogen 3 L Creatinine 0.62 Glucose Level 76 Calcium Level 8.5 Magnesium Level 1.7 Absolute Reticulocyte Count 0.021 Percent Reticulocyte Count 0.5 Lactate Dehydrogenase 1253 H Immunoglobulin G 834 Immunoglobulin A 219 Immunoglobulin M 112 Medications Medications Current Medications Levofloxacin/ Dextrose (Levaquin 500mg/ D5W 100 ml (Pmx)) 100 ml @ 100 mls/hr Q24H IVPB Last administered on 05/19/17 15:08; Admin Dose 100 MLS/HR; Start 05/16/17 at 14:30 Acetaminophen/ Hydrocodone Bitart ([place] (5/325)) 1 tab Q6H PRN PO pain Last administered on 05/17/17 09:15; Admin Dose 1 TAB; Start 05/16/17 at 14:30 Ondansetron HCl (Zofran Inj) 4 mg Q6H PRN IV NAUSEA AND/OR VOMITING Last administered on 05/19/17 17:25; Admin Dose 4 MG; Start 05/16/17 at 14:30 Docusate Sodium (Colace) 100 mg BID PO Last administered on 05/17/17 08:15; Admin Dose 100 MG; Start 05/16/17 at 21:00 Ondansetron HCl (Zofran Inj) 4 mg Q4H PRN IV NAUSEA AND/OR VOMITING Last administered on 05/20/17 00:58; Admin Dose 4 MG; Start 05/17/17 at 02:00 Acetaminophen 650 mg 650 mg Q8H PRN PO PAIN AND OR ELEVATED TEMP Last administered on 05/17/17 13:21; Admin Dose 650 MG; Start 05/17/17 at 02:30 Sodium Chloride 1,000 ml @ 70 mls/hr [id number] IV Last administered on 05:43; Admin Dose 70 MLS/HR; Start 05/17/17 at 07:30 Ferric Sodium Gluconate Complex/ Sodium Chloride (Ferrlecit/NS) 110 ml @ 110 mls/hr Q24H IVPB Last administered on 05/20/17 12:15; Admin Dose 110 MLS/HR; Start 05/17/17 at 11:00; Stop 05/21/17 at 11:59 Pantoprazole (Protonix Iv) 40 mg DAILY@06 IV Last administered on 05/20/17 05 :44; Admin Dose 40 MG; Start 05/18/17 at 06:00 Morphine Sulfate (morphine) 6 mg Q4H PRN PO PAIN LEVEL 6-10 Last administered on 05/20/17 00:59; Admin Dose 6 MG; Start 05/18/17 at 16:00 Fluconazole (Diflucan) 100 mg DAILY PO Last administered on 05/20/17 08:27; Admin Dose 100 MG; Start 05/19/17 at 18:30; Stop 05/26/17 at 08:59 Cyanocobalamin (Vitamin B12 Inj) 1,000 mcg DAILY IM Last administered on 10:11; Admin Dose 1,000 MCG; Start 05/20/17 at 10:00 Metronidazole (Flagyl) 500 mg Q8 PO ; Start 05/20/17 at 14:00; Stop 05/25/17 at 13:59; Status DAVID LOMELI MD May 20, 2017 14:14
[2017-05-20] MEDS: metroNIDAZOLE 500 MG TAB PO SCH ×2 (14:20→22:21)
[2017-05-20] MEDS: LEVOFLOXACIN 500MG/D5W (PMX) 100 ML IVPB SCH (14:20)
[2017-05-20 16:00] VITALS: BP 109/59; RESP 18
--- NOTE | 2017-05-20 16:23 | PN ---
Date/Time of Note Date/Time of Note DATE: 05/20/17 TIME: 15:42 Assessment/Plan VTE Prophylaxis VTE Prophylaxis Intervention: ambulation Lines/Catheters IV [facility] Peripheral IV Urinary Cath still in place: No Assessment/Plan Chief Complaint/Hosp Course Assessment: Abdominal pain status post EGD Severe esophagitis possible Cristine Moderate gastritis Leukopenia CT scan: Splenomegaly and prominent inguinal lymph nodes Trichotillomania Depression/anxiety disorder Plan: Continue PPI Add Diflucan 100 mg daily 7 days Carafate Simethicone for gas Oncology opinion on splenomegaly and enlarged inguinal lymph nodes would be appreciated Consultation performed in collaboration with Dr. Grigsby Subjective: Patient is feeling better today, unable to eat due to severe pain when the food is going through esophagus. Pelvic pain is improved. Patient is also having a lot of gas and had diarrhea yesterday after drinking the contrast. Plan is to continue the course of treatment, to add Carafate and simethicone. Reviewed the plan of treatment with the patient and her mother . All questions have been answered. All imaging and laboratory data has been reviewed. Discussed the treatment plan with nursing staff. PHYSICAL EXAMINATION: GENERAL: Well developed, well nourished, alert & oriented x 3, in no acute distress SKIN: No lesions, pale, no stigmata chronic liver disease, no evidence of bleeding diathesis LYMPHATIC: No palpable lymphadenopathy. HEAD: Normocephalic, atraumatic, no tenderness. Multiple bald spots due to pulling the hair. Wearing a hat. EYES: Pupils equal reactive to light and accommodation, full extraocular movements, sclera clear, non-icteric, no discharge. EARS/NOSE AND THROAT: Ears normal, nose normal, oropharynx normal, oral membranes well hydrated without lesions. NECK: Supple, no masses, thyroid normal, JVP within normal limits, carotids normal without bruits. CHEST: Inspection within normal limits. CARDIOVASCULAR: Heart: Regular rate and rhythm, no murmurs, gallops or rubs. Peripheral pulses present within normal limits, no cyanosis, clubbing or edemas. No pulsatile abdominal mass RESPIRATORY: Lungs clear to auscultation and percussion, no wheezing, no rubs GASTROINTESTINAL AND LIVER: Abdomen: Soft, left lower quadrant and epigastric tenderness, non-distended, no hernias, no masses, no organomegaly, no ascites, guarding present, no rebound tenderness, normoactive bowel sounds. Rectal: Deferred. GENITOURINARY: Female genitalia within normal limits. EXTREMITIES: No cyanosis, clubbing or edema. Problems: Exam/Review of Systems Vital Signs Vitals Vital Signs Date Time Temp Pulse Resp B/P Pulse Ox O2 Delivery O2 Flow Rate FiO2 05/20/17 08:42 98.5 77 18 103/59 95 05/19/17 20:45 Nasal Cannula 2 Intake and Output 05/19/17 05/19/17 05/20/17 15:00 23:00 07:00 Intake Total 470 ml 780 ml 1770 ml Output Total 1100 ml Balance 470 ml 780 ml 670 ml Results Result Diagram: 05/20/17 0438 05/20/17 0438 Results 24 hrs Laboratory Tests Test 05/20/17 04:38 05/20/17 11:25 White Blood Count 2.5 L Red Blood Count 3.84 L Hemoglobin 11.9 L Hematocrit 35.0 L Mean Corpuscular Volume 91.1 Mean Corpuscular Hemoglobin 31.0 Mean Corpuscular Hemoglobin Concent 34.0 Red Cell Distribution Width 12.3 Platelet Count 57 L Mean Platelet Volume 11.9 H Neutrophils % Segmented Neutrophils % (Manual) 41 Band Neutrophils % (Manual) 19 H Lymphocytes % Lymphocytes % (Manual) 27 Monocytes % Monocytes % (Manual) 7 Eosinophils % Basophils % Metamyelocytes % (manual) 1 H Nucleated Red Blood Cells % 0.0 Neutrophils # Neutrophils # (Manual) 1.0 L Band Neutrophils # 0.4 Absolute Lymphocytes (Manual) 0.6 L Lymphocytes # Monocytes # Absolute Monocytes (Manual) 0.1 L Eosinophils # Basophils # Metamyelocytes # 0.0 Nucleated Red Blood Cells # Platelet Estimate DECREASED Giant Platelets 1 H Poikilocytosis 2+ Anisocytosis 1+ Macrocytosis 1+ Sodium Level 138 Potassium Level 3.6 Chloride Level 103 Carbon Dioxide Level 25 Anion Gap 14 Blood Urea Nitrogen 3 L Creatinine 0.62 Glucose Level 76 Calcium Level 8.5 Magnesium Level 1.7 Absolute Reticulocyte Count 0.021 Percent Reticulocyte Count 0.5 Lactate Dehydrogenase 1253 H Immunoglobulin G 834 Immunoglobulin A 219 Immunoglobulin M 112 Medications Medications Current Medications Levofloxacin/ Dextrose (Levaquin 500mg/ D5W 100 ml (Pmx)) 100 ml @ 100 mls/hr Q24H IVPB Last administered on 05/20/17t 14:20; Admin Dose 100 MLS/HR; Start 05/16/17 at 14:30 Acetaminophen/ Hydrocodone Bitart ([place] (5/325)) 1 tab Q6H PRN PO pain Last administered on 05/17/17 09:15; Admin Dose 1 TAB; Start 05/16/17 at 14:30 Docusate Sodium (Colace) 100 mg BID PO Last administered on 05/17/17 08:15; Admin Dose 100 MG; Start 05/16/17 at 21:00 Ondansetron HCl (Zofran Inj) 4 mg Q4H PRN IV NAUSEA AND/OR VOMITING Last administered on 05/20/17 00:58; Admin Dose 4 MG; Start 05/17/17 at 02:00 Acetaminophen 650 mg 650 mg Q8H PRN PO PAIN AND OR ELEVATED TEMP Last administered on 05/17/17 13:21; Admin Dose 650 MG; Start 05/17/17 at 02:30 Sodium Chloride 1,000 ml @ 70 mls/hr [id number] IV Last administered on 05:43; Admin Dose 70 MLS/HR; Start 05/17/17 at 07:30 Ferric Sodium Gluconate Complex/ Sodium Chloride (Ferrlecit/NS) 110 ml @ 110 mls/hr Q24H IVPB Last administered on 05/20/17 12:15; Admin Dose 110 MLS/HR; Start 05/17/17 at 11:00; Stop 05/21/17 at 11:59 Pantoprazole (Protonix Iv) 40 mg DAILY@06 IV Last administered on 05/20/17 05 :44; Admin Dose 40 MG; Start 05/18/17 at 06:00 Morphine Sulfate (morphine) 6 mg Q4H PRN PO PAIN LEVEL 6-10 Last administered on 05/20/17 00:59; Admin Dose 6 MG; Start 05/18/17 at 16:00 Fluconazole (Diflucan) 100 mg DAILY PO Last administered on 05/20/17 08:27; Admin Dose 100 MG; Start 05/19/17 at 18:30; Stop 05/26/17 at 08:59 Cyanocobalamin (Vitamin B12 Inj) 1,000 mcg DAILY IM Last administered on 10:11; Admin Dose 1,000 MCG; Start 05/20/17 at 10:00 Metronidazole (Flagyl) 500 mg Q8 PO Last administered on 05/20/17t 14:20; Admin Dose 500 MG; Start 05/20/17 at 14:00; Stop 05/25/17 at 13:59 Copies To: CC: KARTHIKEYAN GRIGSBY MD, ANASTASIA NP May 20, 2017 16:10
[2017-05-20] MEDS: SUCRALFATE (100 MG/ML) 10ML CUP GTB SCH ×2 (17:21→20:49)
[2017-05-20 19:45] VITALS: BP 99/59; RESP 16
[2017-05-20 20:28] VITALS: BP 100/60; PULSE 68; RESP 18
[2017-05-21 03:01] LABS: PROTEIN, TOTAL 6.6 g/dL (6.1-8.1)
[2017-05-21] MEDS: PANTOPRAZOLE 40 MG INJ IV SCH (05:23)
[2017-05-21] MEDS: metroNIDAZOLE 500 MG TAB PO SCH ×3 (05:23→22:03)
[2017-05-21 05:48] LABS: ABNORMAL IP MESSAGE 1; HEMATOCRIT 34.3 % (37.0-47.0); HEMOGLOBIN 11.6 g/dl (12.0-16.0); MEAN CORPUSCULAR HEMOGLOBIN 31.3 pg (29.0-33.0); MEAN CORPUSCULAR HGB CONC 33.8 g/dl (32.0-37.0); MEAN CORPUSCULAR VOLUME 92.5 fl (82.0-101.0); MEAN PLATELET VOLUME 11.9 fl (7.4-10.4); PLATELET COUNT 62 10^3/UL (140-415); RED BLOOD COUNT 3.71 10^6/ul (4.20-5.40); RED CELL DISTRIBUTION WIDTH 11.9 % (11.5-14.5); WHITE BLOOD COUNT 2.4 10^3/ul (4.8-10.8)
[2017-05-21 05:55] LABS: POSITIVE DIFF @See below
[2017-05-21 06:45] LABS: CALCIUM 8.3 mg/dl (8.4-10.2); CREATININE 0.57 mg/dl (0.44-1.00); POTASSIUM 3.3 mmol/L (3.5-5.1)
[2017-05-21 08:30] VITALS: BP 94/54; RESP 18
--- NOTE | 2017-05-21 08:38 | CONS ---
Date/Time of Note Date/Time of Note DATE: 05/21/17 TIME: 08:32 Consult Date/Type/Reason Admit Date/Time May 16, 2017 at 1:18 pm Initial Consult Date 05/17/17 Type of Consultation: GI Subjective Pt is sleeping in bed. Nauseated per fiance in the room. No fevers or chills. Quite fatigued. Objective Vital Signs Date Time Temp Pulse Resp B/P Pulse Ox O2 Delivery O2 Flow Rate FiO2 05/20/17 20:28 98.2 68 18 100/60 97 Room Air 05/19/17 20:45 2 Intake and Output 05/20/17 05/20/17 05/21/17 15:00 23:00 07:00 Intake Total 110 ml 1400 ml 1760 ml Output Total 1000 ml Balance 110 ml 1400 ml 760 ml Exam NAD/A&Ox4 OP clear Pale complexion CTA B RRR no m/g/r Abdomen distended, positive bowel sounds, difficult to palpate spleen but tip appears to be palpable No c/c/e Results/Medications Result Diagram: 05/21/17 0439 05/21/17 0439 Results 24 hrs Laboratory Tests Test 05/20/17 11:25 05/21/17 04:39 Absolute Reticulocyte Count 0.021 Percent Reticulocyte Count 0.5 Lactate Dehydrogenase 1253 H Total Protein (PEP) 6.6 Albumin (PEP) Pending [id number] Pending [id number] Pending Beta Globulins Pending Gamma Globulins Pending Protein Electrophoresis Interpret Pending Immunoglobulin G 834 Immunoglobulin A 219 Immunoglobulin M 112 Intrinsic Factor Blocking Antibody Pending White Blood Count 2.4 L Red Blood Count 3.71 L Hemoglobin 11.6 L Hematocrit 34.3 L Mean Corpuscular Volume 92.5 Mean Corpuscular Hemoglobin 31.3 Mean Corpuscular Hemoglobin Concent 33.8 Red Cell Distribution Width 11.9 Platelet Count 62 L Mean Platelet Volume 11.9 H Neutrophils % Lymphocytes % Monocytes % Eosinophils % Basophils % Nucleated Red Blood Cells % 0.0 Neutrophils # Lymphocytes # Monocytes # Eosinophils # Basophils # Nucleated Red Blood Cells # Sodium Level 139 Potassium Level 3.3 L Chloride Level 104 Carbon Dioxide Level 25 Anion Gap 13 Blood Urea Nitrogen 4 L Creatinine 0.57 Glucose Level 66 #L Calcium Level 8.3 L Medications Current Medications Levofloxacin/ Dextrose (Levaquin 500mg/ D5W 100 ml (Pmx)) 100 ml @ 100 mls/hr Q24H IVPB Last administered on 05/20/17 14:20; Admin Dose 100 MLS/HR; Start 05/16/17 at 14:30 Acetaminophen/ Hydrocodone Bitart ([place] (5/325)) 1 tab Q6H PRN PO pain Last administered on 05/17/17 09:15; Admin Dose 1 TAB; Start 05/16/17 at 14:30 Docusate Sodium (Colace) 100 mg BID PO Last administered on 05/17/17 08:15; Admin Dose 100 MG; Start 05/16/17 at 21:00 Ondansetron HCl (Zofran Inj) 4 mg Q4H PRN IV NAUSEA AND/OR VOMITING Last administered on 05/20/17 20:47; Admin Dose 4 MG; Start 05/17/17 at 02:00 Acetaminophen 650 mg 650 mg Q8H PRN PO PAIN AND OR ELEVATED TEMP Last administered on 05/17/17 13:21; Admin Dose 650 MG; Start 05/17/17 at 02:30 Sodium Chloride 1,000 ml @ 70 mls/hr [id number] IV Last administered on 20:49; Admin Dose 70 MLS/HR; Start 05/17/17 at 07:30 Ferric Sodium Gluconate Complex/ Sodium Chloride (Ferrlecit/NS) 110 ml @ 110 mls/hr Q24H IVPB Last administered on 05/20/17 12:15; Admin Dose 110 MLS/HR; Start 05/17/17 at 11:00; Stop 05/21/17 at 11:59 Pantoprazole (Protonix Iv) 40 mg DAILY@06 IV Last administered on 05/21/17 05 :23; Admin Dose 40 MG; Start 05/18/17 at 06:00 Morphine Sulfate (morphine) 6 mg Q4H PRN PO PAIN LEVEL 6-10 Last administered on 05/20/17 17:30; Admin Dose 6 MG; Start 05/18/17 at 16:00 Fluconazole (Diflucan) 100 mg DAILY PO Last administered on 05/20/17 08:27; Admin Dose 100 MG; Start 05/19/17 at 18:30; Stop 05/26/17 at 08:59 Cyanocobalamin (Vitamin B12 Inj) 1,000 mcg DAILY IM Last administered on 10:11; Admin Dose 1,000 MCG; Start 05/20/17 at 10:00 Metronidazole (Flagyl) 500 mg Q8 PO Last administered on 05/21/17 05:23; Admin Dose 500 MG; Start 05/20/17 at 14:00; Stop 05/25/17 at 13:59 Sucralfate (Carafate Susp) 1 gm QID GTB Last administered on 05/20/17 17:21; Admin Dose 1 GM; Start 05/20/17 at 17:00 Simethicone (Mylicon) 80 mg Q6 GTB Last administered on 05/21/17 05:23; Admin Dose 80 MG; Start 05/20/17 at 18:00 Assessment/Plan Chief Complaint/Hosp Course Pt with pancytopenia and enlarged spleen. Need to rule out leukemia/lymphoma. Recommend bone marrow marrow biopsy. Will request that either Dr. Hopkins or Dr. Marina set up right away. Case discussed with nurse. Problems: IVETTE PUGA May 21, 2017 8:38 am
[2017-05-21] MEDS: FLUCONAZOLE 100 MG TAB PO SCH (08:48)
[2017-05-21] MEDS: SUCRALFATE (100 MG/ML) 10ML CUP GTB SCH ×4 (08:49→21:00)
[2017-05-21] MEDS: CYANOCOBALAMIN 1000 MCG INJ IM SCH (08:49)
[2017-05-21] MEDS: DOCUSATE SODIUM 100 MG CAP PO SCH ×2 (09:00→21:00)
[2017-05-21] MEDS ORDERED: POTASSIUM CHLORIDE (SR) 20 MEQ TAB PO STA (09:05)
[2017-05-21] MEDS: SOD CHLORIDE 0.9% 1,000 ML IV SCH (09:05)
--- NOTE | 2017-05-21 09:15 | PN ---
Date/Time of Note Date/Time of Note DATE: 05/21/17 TIME: 09:13 Assessment/Plan VTE Prophylaxis VTE Prophylaxis Intervention: contraindicated Lines/Catheters IV C[facility] Type ([facility] Peripheral IV Urinary Cath still in place: No Assessment/Plan Problems: (1) Thrombocytopenia Status: Acute Comment: As per hematology consultation I am in agreement with the ordering of a bone marrow biopsy. (2) Leukopenia Status: Acute Comment: As per hematology consultation I am in agreement with the obtaining of a bone marrow biopsy Qualifiers: Leukopenia type: unspecified Qualified Code: D72.819 - Leukopenia, unspecified type (3) Iron deficiency anemia Status: Chronic Comment: She is receiving IV iron. Please note she actually never had significant anemia unlike her white count and platelet counts. Qualifiers: Iron deficiency anemia type: chronic blood loss Qualified Code: D50.0 - Iron deficiency anemia due to chronic blood loss (4) Cristine esophagitis Status: Acute Comment: She is on appropriate treatment for this. (5) Vaginitis due to Gardnerella vaginalis Status: Acute Comment: She is having some vaginal bleeding. Please note that she is under treatment for this at this time successfully (6) Hypokalemia Status: Acute Comment: Replace potassium Subjective 24 Hr Interval Summary Free Text/Dictation Patient is more anxious today. She is fearful that there is something more sinister going on and that we may not be telling her Constitutional: no complaints (No fevers chills or sweats) Respiratory: no complaints Cardiovascular: no complaints Gastrointestinal: no complaints Genitourinary: no complaints, other (Positive onset of vaginal bleeding; last menstrual cycle May 09) Exam/Review of Systems Vital Signs Vitals Vital Signs Date Time Temp Pulse Resp B/P Pulse Ox O2 Delivery O2 Flow Rate FiO2 05/20/17 20:28 98.2 68 18 100/60 97 Room Air 05/19/17 20:45 2 Intake and Output 05/20/17 05/20/17 05/21/17 14:59 22:59 06:59 Intake Total 110 ml 1400 ml 1760 ml Output Total 1000 ml Balance 110 ml 1400 ml 760 ml Exam Constitutional: alert, oriented Neck: non-tender, supple Respiratory: clear to auscultation, normal air movement Cardiovascular: nl pulses, regular rate and rhythm Gastrointestinal: nl liver, spleen, non-tender, soft Results Result Diagram: 05/21/17 0439 05/21/17 0439 Results 24 hrs Laboratory Tests Test 05/20/17 11:25 05/21/17 04:39 Absolute Reticulocyte Count 0.021 Percent Reticulocyte Count 0.5 Lactate Dehydrogenase 1253 H Total Protein (PEP) 6.6 Albumin (PEP) Pending [id number] Pending Ehjoo-5-Hcvrwtuaw Pending Beta Globulins Pending Gamma Globulins Pending Protein Electrophoresis Interpret Pending Immunoglobulin G 834 Immunoglobulin A 219 Immunoglobulin M 112 Intrinsic Factor Blocking Antibody Pending White Blood Count 2.4 L Red Blood Count 3.71 L Hemoglobin 11.6 L Hematocrit 34.3 L Mean Corpuscular Volume 92.5 Mean Corpuscular Hemoglobin 31.3 Mean Corpuscular Hemoglobin Concent 33.8 Red Cell Distribution Width 11.9 Platelet Count 62 L Mean Platelet Volume 11.9 H Neutrophils % Lymphocytes % Monocytes % Eosinophils % Basophils % Nucleated Red Blood Cells % 0.0 Neutrophils # Lymphocytes # Monocytes # Eosinophils # Basophils # Nucleated Red Blood Cells # Sodium Level 139 Potassium Level 3.3 L Chloride Level 104 Carbon Dioxide Level 25 Anion Gap 13 Blood Urea Nitrogen 4 L Creatinine 0.57 Glucose Level 66 #L Calcium Level 8.3 L Medications Medications Current Medications Levofloxacin/ Dextrose (Levaquin 500mg/ D5W 100 ml (Pmx)) 100 ml @ 100 mls/hr Q24H IVPB Last administered on 05/20/17 14:20; Admin Dose 100 MLS/HR; Start 05/16/17 at 14:30 Acetaminophen/ Hydrocodone Bitart ([place] (5/325)) 1 tab Q6H PRN PO pain Last administered on 05/17/17 09:15; Admin Dose 1 TAB; Start 05/16/17 at 14:30 Docusate Sodium (Colace) 100 mg BID PO Last administered on 05/17/17 08:15; Admin Dose 100 MG; Start 05/16/17 at 21:00 Ondansetron HCl (Zofran Inj) 4 mg Q4H PRN IV NAUSEA AND/OR VOMITING Last administered on 05/20/17 20:47; Admin Dose 4 MG; Start 05/17/17 at 02:00 Acetaminophen 650 mg 650 mg Q8H PRN PO PAIN AND OR ELEVATED TEMP Last administered on 05/17/17 13:21; Admin Dose 650 MG; Start 05/17/17 at 02:30 Sodium Chloride 1,000 ml @ 70 mls/hr [id number] IV Last administered on 09:05; Admin Dose 70 MLS/HR; Start 05/17/17 at 07:30 Ferric Sodium Gluconate Complex/ Sodium Chloride (Ferrlecit/NS) 110 ml @ 110 mls/hr Q24H IVPB Last administered on 05/20/17 12:15; Admin Dose 110 MLS/HR; Start 05/17/17 at 11:00; Stop 05/21/17 at 11:59 Pantoprazole (Protonix Iv) 40 mg DAILY@06 IV Last administered on 05/21/17 05 :23; Admin Dose 40 MG; Start 05/18/17 at 06:00 Morphine Sulfate (morphine) 6 mg Q4H PRN PO PAIN LEVEL 6-10 Last administered on 05/20/17 17:30; Admin Dose 6 MG; Start 05/18/17 at 16:00 Fluconazole (Diflucan) 100 mg DAILY PO Last administered on 05/21/17 08:48; Admin Dose 100 MG; Start 05/19/17 at 18:30; Stop 05/26/17 at 08:59 Cyanocobalamin (Vitamin B12 Inj) 1,000 mcg DAILY IM Last administered on 08:49; Admin Dose 1,000 MCG; Start 05/20/17 at 10:00 Metronidazole (Flagyl) 500 mg Q8 PO Last administered on 05/21/17 05:23; Admin Dose 500 MG; Start 05/20/17 at 14:00; Stop 05/25/17 at 13:59 Sucralfate (Carafate Susp) 1 gm QID GTB Last administered on 05/21/17 08:49; Admin Dose 1 GM; Start 05/20/17 at 17:00 Simethicone (Mylicon) 80 mg Q6 GTB Last administered on 05/21/17 05:23; Admin Dose 80 MG; Start 05/20/17 at 18:00 DAVID THOMAS MD May 21, 2017 09:15
[2017-05-21 09:46] LABS: ANISOCYTOSIS 1+ (0-0); EOSINOPHILS % (M) 1 % (0-7); GIANT THROMBO% (M) 7 % (0-0); METAMYELOCYTES %M 2 % (0-0); MONOCYTES % (M) 15 % (0-11); MYELOCYTES % (M) 2 % (0-0); OVALOCYTES 1+ (0-0); PLATELET ESTIMATE DECREASED; POIKILOCYTOSIS 1+ (0-0); REACTIVE LYMPHOCYTES% (M) 7 % (0-0)
[2017-05-21] MEDS: SOD FERRIC GLUC COMPLX 125 MG in SOD CHLORIDE 0.9% 100 ML IVPB SCH (12:22)
--- NOTE | 2017-05-21 13:55 | PN ---
Date/Time of Note Date/Time of Note DATE: 05/21/17 TIME: 13:48 Assessment/Plan VTE Prophylaxis VTE Prophylaxis Intervention: ambulation Lines/Catheters [facility] Type (from [facility] Peripheral IV Urinary Cath still in place: No Assessment/Plan Chief Complaint/Hosp Course Assessment: Abdominal pain - Resolved Status post EGD Severe esophagitis possible Cristine Moderate gastritis Leukopenia CT scan: Splenomegaly and prominent inguinal lymph nodes Vaginal spotting/bacterial vaginosis Oral thrush Trichotillomania Depression/anxiety disorder Plan: Start nystatin for oral thrush Bone biopsy is pending on Monday Continue PPI and Carafate Continue Diflucan Consider antifungal vaginal cream for multiple lesions Consultation performed in collaboration with Dr. Grigsby Subjective: Patient is feeling better today, abdominal pain resolved, eating regular diet. Patient is complaining of vaginal spotting multiple vaginal lesions and oral canker sores . Oral suspension of nystatin as ordered . Patient is awaiting for bone marrow biopsy. Reviewed the plan of treatment with the patient. All imaging and laboratory data has been reviewed. Discussed the treatment plan with nursing staff. PHYSICAL EXAMINATION: GENERAL: Well developed, well nourished, alert & oriented x 3, in no acute distress SKIN: No lesions, pale, no stigmata chronic liver disease, no evidence of bleeding diathesis, multiple oral lesions LYMPHATIC: No palpable lymphadenopathy. HEAD: Normocephalic, atraumatic, no tenderness. Multiple bald spots due to pulling the hair. Wearing a hat. EYES: Pupils equal reactive to light and accommodation, full extraocular movements, sclera clear, non-icteric, no discharge. EARS/NOSE AND THROAT: Ears normal, nose normal, oropharynx normal, oral membranes well hydrated without lesions. NECK: Supple, no masses, thyroid normal, JVP within normal limits, carotids normal without bruits. CHEST: Inspection within normal limits. CARDIOVASCULAR: Heart: Regular rate and rhythm, no murmurs, gallops or rubs. Peripheral pulses present within normal limits, no cyanosis, clubbing or edemas. No pulsatile abdominal mass RESPIRATORY: Lungs clear to auscultation and percussion, no wheezing, no rubs GASTROINTESTINAL AND LIVER: Abdomen: Soft, no tenderness, non-distended, no hernias, no masses, no organomegaly, no ascites, guarding present, no rebound tenderness, normoactive bowel sounds. Rectal: Deferred. GENITOURINARY: Female genitalia within normal limits. EXTREMITIES: No cyanosis, clubbing or edema. Problems: Exam/Review of Systems Vital Signs Vitals Vital Signs Date Time Temp Pulse Resp B/P Pulse Ox O2 Delivery O2 Flow Rate FiO2 05/21/17 08:30 98.5 86 18 94/54 96 05/20/17 20:28 Room Air 05/19/17 20:45 2 Intake and Output 05/20/17 05/20/17 05/21/17 14:59 22:59 06:59 Intake Total 110 ml 1400 ml 1760 ml Output Total 1000 ml Balance 110 ml 1400 ml 760 ml Results Result Diagram: 05/21/17 0439 05/21/17 0439 Results 24 hrs Laboratory Tests Test 05/21/17 04:39 White Blood Count 2.4 L Red Blood Count 3.71 L Hemoglobin 11.6 L Hematocrit 34.3 L Mean Corpuscular Volume 92.5 Mean Corpuscular Hemoglobin 31.3 Mean Corpuscular Hemoglobin Concent 33.8 Red Cell Distribution Width 11.9 Platelet Count 62 L Mean Platelet Volume 11.9 H Neutrophils % Segmented Neutrophils % (Manual) 37 L Band Neutrophils % (Manual) 6 H Lymphocytes % Lymphocytes % (Manual) 29 Reactive Lymphocytes % (Manual) 7 H Monocytes % Monocytes % (Manual) 15 H Eosinophils % Eosinophils % (Manual) 1 Basophils % Metamyelocytes % (manual) 2 H Myelocytes % (Manual) 2 H Nucleated Red Blood Cells % 0.0 Neutrophils # Neutrophils # (Manual) 0.9 L Band Neutrophils # 0.1 Absolute Lymphocytes (Manual) 0.6 L Lymphocytes # Reactive Lymphocytes # 0.1 H Monocytes # Absolute Monocytes (Manual) 0.3 Eosinophils # Basophils # Metamyelocytes # 0.0 Myelocytes # 0.0 Nucleated Red Blood Cells # Platelet Estimate DECREASED Giant Platelets 7 H Poikilocytosis 1+ Anisocytosis 1+ Ovalocytes 1+ Echinocytes 1+ Sodium Level 139 Potassium Level 3.3 L Chloride Level 104 Carbon Dioxide Level 25 Anion Gap 13 Blood Urea Nitrogen 4 L Creatinine 0.57 Glucose Level 66 #L Calcium Level 8.3 L Medications Medications Current Medications Levofloxacin/ Dextrose (Levaquin 500mg/ D5W 100 ml (Pmx)) 100 ml @ 100 mls/hr Q24H IVPB Last administered on 05/20/17t 14:20; Admin Dose 100 MLS/HR; Start 05/16/17 at 14:30 Acetaminophen/ Hydrocodone Bitart ([place] (5/325)) 1 tab Q6H PRN PO pain Last administered on 05/17/17 09:15; Admin Dose 1 TAB; Start 05/16/17 at 14:30 Docusate Sodium (Colace) 100 mg BID PO Last administered on 05/17/17 08:15; Admin Dose 100 MG; Start 05/16/17 at 21:00 Ondansetron HCl (Zofran Inj) 4 mg Q4H PRN IV NAUSEA AND/OR VOMITING Last administered on 05/20/17 20:47; Admin Dose 4 MG; Start 05/17/17 at 02:00 Acetaminophen 650 mg 650 mg Q8H PRN PO PAIN AND OR ELEVATED TEMP Last administered on 05/17/17 13:21; Admin Dose 650 MG; Start 05/17/17 at 02:30 Sodium Chloride (NS) 1,000 ml @ 70 mls/hr [id number] IV Last administered on 09:05; Admin Dose 70 MLS/HR; Start 05/17/17 at 07:30 Pantoprazole (Protonix Iv) 40 mg DAILY@06 IV Last administered on 05/21/17 05 :23; Admin Dose 40 MG; Start 05/18/17 at 06:00 Morphine Sulfate (morphine) 6 mg Q4H PRN PO PAIN LEVEL 6-10 Last administered on 05/20/17 17:30; Admin Dose 6 MG; Start 05/18/17 at 16:00 Fluconazole (Diflucan) 100 mg DAILY PO Last administered on 05/21/17 08:48; Admin Dose 100 MG; Start 05/19/17 at 18:30; Stop 05/26/17 at 08:59 Cyanocobalamin (Vitamin B12 Inj) 1,000 mcg DAILY IM Last administered on 08:49; Admin Dose 1,000 MCG; Start 05/20/17 at 10:00 Metronidazole (Flagyl) 500 mg Q8 PO Last administered on 05/21/17 05:23; Admin Dose 500 MG; Start 05/20/17 at 14:00; Stop 05/25/17 at 13:59 Sucralfate (Carafate Susp) 1 gm QID GTB Last administered on 05/21/17 12:22; Admin Dose 1 GM; Start 05/20/17 at 17:00 Simethicone (Mylicon) 80 mg Q6 GTB Last administered on 05/21/17 12:22; Admin Dose 80 MG; Start 05/20/17 at 18:00 Nystatin (Nystatin Susp) 5 ml QID PO ; Start 05/21/17 at 17:00 Copies To: CC: KARTHIKEYAN GRIGSBY MD, ANASTASIA NP May 21, 2017 13:55
[2017-05-21] MEDS: LEVOFLOXACIN 500MG/D5W (PMX) 100 ML IVPB SCH (14:26)
[2017-05-21 15:41] VITALS: BP 96/51; RESP 18
[2017-05-21] MEDS: ONDANSETRON 4 MG INJ IV PRN ×2 (17:54→22:02)
[2017-05-21] MEDS: NYSTATIN SUSP 5 ML CUP PO SCH ×2 (17:54→21:00)
[2017-05-21] MEDS: morphine LIQ (10 MG/5 ML) CUP PO PRN (17:54)
[2017-05-21 19:53] VITALS: BP 104/53; RESP 16
[2017-05-22 01:30] VITALS: BP 98/57; RESP 16
[2017-05-22] MEDS: SOD CHLORIDE 0.9% 1,000 ML IV SCH ×2 (02:08→17:13)
[2017-05-22 05:38] LABS: ABNORMAL IP MESSAGE 1; HEMATOCRIT 32.9 % (37.0-47.0); HEMOGLOBIN 11.3 g/dl (12.0-16.0); MEAN CORPUSCULAR HEMOGLOBIN 31.2 pg (29.0-33.0); MEAN CORPUSCULAR HGB CONC 34.3 g/dl (32.0-37.0); MEAN CORPUSCULAR VOLUME 90.9 fl (82.0-101.0); MEAN PLATELET VOLUME 11.9 fl (7.4-10.4); PLATELET COUNT 86 10^3/UL (140-415); RED BLOOD COUNT 3.62 10^6/ul (4.20-5.40); WHITE BLOOD COUNT 2.6 10^3/ul (4.8-10.8)
[2017-05-22 05:42] LABS: POSITIVE DIFF @See below
[2017-05-22] MEDS: PANTOPRAZOLE 40 MG INJ IV SCH (05:45)
[2017-05-22] MEDS: metroNIDAZOLE 500 MG TAB PO SCH ×3 (05:46→21:40)
[2017-05-22 06:01] LABS: CALCIUM 8.4 mg/dl (8.4-10.2); CREATININE 0.59 mg/dl (0.44-1.00); POTASSIUM 3.6 mmol/L (3.5-5.1)
[2017-05-22 07:06] LABS: ANISOCYTOSIS 1+ (0-0); EOSINOPHILS % (M) 1 % (0-7); ERYTHROBLAST% (NRBC) (M) 1 % (0-0); GIANT THROMBO% (M) 6 % (0-0); METAMYELOCYTES %M 1 % (0-0); MICROCYTOSIS 1+ (0-0); MONOCYTES % (M) 5 % (0-11); MYELOCYTES % (M) 3 % (0-0); PLATELET ESTIMATE DECREASED; REACTIVE LYMPHOCYTES% (M) 14 % (0-0)
[2017-05-22 08:10] VITALS: BP 99/58; RESP 16
[2017-05-22] MEDS: DOCUSATE SODIUM 100 MG CAP PO SCH ×2 (09:00→21:00)
[2017-05-22] MEDS: SUCRALFATE (100 MG/ML) 10ML CUP GTB SCH ×4 (09:08→21:40)
[2017-05-22] MEDS: CYANOCOBALAMIN 1000 MCG INJ IM SCH (09:08)
[2017-05-22] MEDS: FLUCONAZOLE 100 MG TAB PO SCH (09:08)
[2017-05-22] MEDS: NYSTATIN SUSP 5 ML CUP PO SCH ×4 (09:08→21:40)
--- NOTE | 2017-05-22 11:45 | PN ---
Date/Time of Note Date/Time of Note DATE: 05/22/17 TIME: 11:44 Assessment/Plan VTE Prophylaxis VTE Prophylaxis Intervention: SCD's Lines/Catheters IV [facility]ter Type (from [facility]): Peripheral IV Urinary Cath still in place: No Assessment/Plan Chief Complaint/Hosp Course Chief Complaint/Hosp Course Assessment: Abdominal pain - Resolved Status post EGD 05/19/17 Impression: Severe erosive esophagitis. Probable Cristine esophagitis. Biopsies obtained Moderate gastritis. Rule out H. pylori infection. Biopsies obtained Otherwise normal EGD. Leukopenia CT scan: Splenomegaly and prominent inguinal lymph nodes Vaginal spotting/bacterial vaginosis Oral thrush Trichotillomania Depression/anxiety disorder Plan: Continue nystatin for oral thrush Bone biopsy in near future Continue Diflucan 100 mg daily for a total of 7 days Review pathology A-Gastric body and antrum, biopsy: -- Body and antral mucosa showing no significant histopathological abnormalities. -- No Helicobacter organisms are identified in a Giemsa stain (positive control concurrently reviewed). -- There is no evidence of malignancy. B-Esophagus biopsy: -- Acute erosive esophagitis due to herpes simplex virus. -- There is no evidence of malignancy. Will start acyclovir q8 hrs Tolerating diet well Continue PPI IV and Carafate- with plan to change PPI to po in near future Patient seen in collaboration with Dr. Grigsby Subjective: Patient is feeling well today, c/o some nausea yesterday but overall doing well. Plan for bone marrow biopsy in near future. Continue current GI regiment, will discuss bx results once available. All imaging and laboratory data has been reviewed. PHYSICAL EXAMINATION: GENERAL: Well developed, well nourished, alert & oriented x 3, in no acute distress SKIN: No lesions, pale, no stigmata chronic liver disease, no evidence of bleeding diathesis, multiple oral lesions LYMPHATIC: No palpable lymphadenopathy. HEAD: Normocephalic, atraumatic, no tenderness. Multiple bald spots due to pulling the hair. Wearing a hat. EYES: Pupils equal reactive to light and accommodation, full extraocular movements, sclera clear, non-icteric, no discharge. EARS/NOSE AND THROAT: Ears normal, nose normal, oropharynx normal, oral membranes well hydrated without lesions. NECK: Supple, no masses, thyroid normal. CHEST: Inspection within normal limits. CARDIOVASCULAR: Heart: Regular rate and rhythm. RESPIRATORY: Lungs clear to auscultation and percussion, no wheezing, no rubs GASTROINTESTINAL AND LIVER: Abdomen: Soft, no tenderness, non-distended, no hernias, no masses, no organomegaly, no ascites, guarding present, no rebound tenderness, normoactive bowel sounds. Rectal: Deferred. GENITOURINARY: Female genitalia within normal limits. EXTREMITIES: No cyanosis, clubbing or edema. Problems: Exam/Review of Systems Vital Signs Vitals Vital Signs Date Time Temp Pulse Resp B/P Pulse Ox O2 Delivery O2 Flow Rate FiO2 05/22/17 08:10 97.9 52 16 99/58 100 05/20/17 20:28 Room Air 05/19/17 20:45 2 Intake and Output 05/21/17 05/21/17 05/22/17 15:00 23:00 07:00 Intake Total 310 ml 1100 ml 1380 ml Output Total 800 ml Balance 310 ml 300 ml 1380 ml Results Result Diagram: 05/22/17 0428 05/22/17 0428 Results 24 hrs Laboratory Tests Test 05/22/17 04:28 White Blood Count 2.6 L Red Blood Count 3.62 L Hemoglobin 11.3 L Hematocrit 32.9 L Mean Corpuscular Volume 90.9 Mean Corpuscular Hemoglobin 31.2 Mean Corpuscular Hemoglobin Concent 34.3 Red Cell Distribution Width 12.0 Platelet Count 86 #L Mean Platelet Volume 11.9 H Neutrophils % Segmented Neutrophils % (Manual) 43 Band Neutrophils % (Manual) 3 Lymphocytes % Lymphocytes % (Manual) 30 Reactive Lymphocytes % (Manual) 14 H Monocytes % Monocytes % (Manual) 5 Eosinophils % Eosinophils % (Manual) 1 Basophils % Metamyelocytes % (manual) 1 H Myelocytes % (Manual) 3 H Nucleated Red Blood Cells % 1 H Neutrophils # Neutrophils # (Manual) 1.1 L Band Neutrophils # 0.0 Absolute Lymphocytes (Manual) 0.7 L Lymphocytes # Reactive Lymphocytes # 0.3 H Monocytes # Absolute Monocytes (Manual) 0.1 L Eosinophils # Basophils # Metamyelocytes # 0.0 Myelocytes # 0.0 Nucleated Red Blood Cells # Platelet Estimate DECREASED Giant Platelets 6 H Anisocytosis 1+ Microcytosis 1+ Sodium Level 140 Potassium Level 3.6 Chloride Level 104 Carbon Dioxide Level 25 Anion Gap 15 Blood Urea Nitrogen 4 L Creatinine 0.59 Glucose Level 74 Calcium Level 8.4 Medications Medications Current Medications Levofloxacin/ Dextrose (Levaquin 500mg/ D5W 100 ml (Pmx)) 100 ml @ 100 mls/hr Q24H IVPB Last administered on 05/21/17 14:26; Admin Dose 100 MLS/HR; Start 05/16/17 at 14:30 Acetaminophen/ Hydrocodone Bitart ([place] (5/325)) 1 tab Q6H PRN PO pain Last administered on 05/17/17 09:15; Admin Dose 1 TAB; Start 05/16/17 at 14:30 Docusate Sodium (Colace) 100 mg BID PO Last administered on 05/17/17 08:15; Admin Dose 100 MG; Start 05/16/17 at 21:00 Ondansetron HCl (Zofran Inj) 4 mg Q4H PRN IV NAUSEA AND/OR VOMITING Last administered on 05/21/17 22:02; Admin Dose 4 MG; Start 05/17/17 at 02:00 Acetaminophen 650 mg 650 mg Q8H PRN PO PAIN AND OR ELEVATED TEMP Last administered on 05/17/17 13:21; Admin Dose 650 MG; Start 05/17/17 at 02:30 Sodium Chloride (NS) 1,000 ml @ 70 mls/hr [id number] IV Last administered on 02:08; Admin Dose 70 MLS/HR; Start 05/17/17 at 07:30 Pantoprazole (Protonix Iv) 40 mg DAILY@06 IV Last administered on 05/22/17 05 :45; Admin Dose 40 MG; Start 05/18/17 at 06:00 Morphine Sulfate (morphine) 6 mg Q4H PRN PO PAIN LEVEL 6-10 Last administered on 05/21/17 17:54; Admin Dose 6 MG; Start 05/18/17 at 16:00 Fluconazole (Diflucan) 100 mg DAILY PO Last administered on 05/22/17 09:08; Admin Dose 100 MG; Start 05/19/17 at 18:30; Stop 05/26/17 at 08:59 Cyanocobalamin (Vitamin B12 Inj) 1,000 mcg DAILY IM Last administered on 09:08; Admin Dose 1,000 MCG; Start 05/20/17 at 10:00 Metronidazole (Flagyl) 500 mg Q8 PO Last administered on 05/22/17 05:46; Admin Dose 500 MG; Start 05/20/17 at 14:00; Stop 05/25/17 at 13:59 Sucralfate (Carafate Susp) 1 gm QID GTB Last administered on 05/22/17 09:08; Admin Dose 1 GM; Start 05/20/17 at 17:00 Simethicone (Mylicon) 80 mg Q6 GTB Last administered on 05/22/17 05:46; Admin Dose 80 MG; Start 05/20/17 at 18:00 Nystatin (Nystatin Susp) 5 ml QID PO Last administered on 05/22/17 09:08; Admin Dose 5 ML; Start 05/21/17 at 17:00 BERTRAM FLORIAN May 22, 2017 11:45
--- NOTE | 2017-05-22 12:23 | PN ---
Date/Time of Note Date/Time of Note DATE: 05/22/17 TIME: 12:10 Assessment/Plan VTE Prophylaxis VTE Prophylaxis Intervention: ambulation Lines/Catheters IV Catheter Type (from [facility]): Peripheral IV Urinary Cath still in place: No Assessment/Plan Chief Complaint/Hosp Course 21-year-old female with past medical history only of depression recently started on Prozac about 2 months ago presented to the emergency room with generalized weakness, and dysuria who was found with pancytopenia with significant neutropenia requiring further hematology workup. 1. Pancytopenia with significant neutropenia. Patient with strong family history of leukemia. Status: Acute -Heme/onc on board and plan is bone marrow biopsy. 2. Erosive esophagitis. Rule out Cristine esophagitis Status: Acute -Patient received treatment for Cristine esophagitis. Follow-up the pathology report. 3. Symptomatic Gardnerella vaginalis urinary tract infection Status: Acute -On treatment. 4. Depression. Status: Chronic -Status post psychiatry evaluation who recommended Lexapro 10 mg p.o. daily which I will start now. Follow-up with heme/oncology recommendations. Patient was seen in collaboration with Problems: Subjective 24 Hr Interval Summary Free Text/Dictation Overall, patient is doing well. She remains afebrile. Not in any acute distress. Patient is scheduled for bone marrow biopsy today. Reports intermittent vaginal spotting. Exam/Review of Systems Vital Signs Vitals Vital Signs Date Time Temp Pulse Resp B/P Pulse Ox O2 Delivery O2 Flow Rate FiO2 05/22/17 08:10 97.9 52 16 99/58 100 05/20/17 20:28 Room Air 05/19/17 20:45 2 Intake and Output 05/21/17 05/21/17 05/22/17 15:00 23:00 07:00 Intake Total 310 ml 1100 ml 1380 ml Output Total 800 ml Balance 310 ml 300 ml 1380 ml Exam General: Well developed,adequately built young female not in any acute distress . HEENT: Normocephalic, Atraumatic, No laceration or hematoma; Eyes: PEERL, Conjunctiva clear, Anicteric sclera Neck: Supple without any lymphadenopathy, nontender, no JVD, no carotid bruits, trachea midline, no thyromegaly Cardiac: S1, S2 auscultated, regular rhythm and rate, no mumurs or gallop Pulmonary: Normal respiratory effort. Chest clear to auscultation bilaterally, no adventitious breath sounds GI: Abdomen normal to inspection. Soft, non tender, non- distended, no masses, no rebound tenderness or guarding. Bowel sounds active on all four quadrants Genitourinary: Deferred Extremities: No cyanosis, clubbing, or edema. Pulses [2+] bilaterally. Full ROM on all four extremities. No focal weakness appreciated. Neurologic: Alert to person, place, time, and situation. Affect appropriate, intact sensation. Skin: Clean,dry, and intact. No ecchymosis, no rashes, or lesions Results Result Diagram: 05/22/17 0428 05/22/17 042 Results 24 hrs Laboratory Tests Test 05/22/17 04:28 White Blood Count 2.6 L Red Blood Count 3.62 L Hemoglobin 11.3 L Hematocrit 32.9 L Mean Corpuscular Volume 90.9 Mean Corpuscular Hemoglobin 31.2 Mean Corpuscular Hemoglobin Concent 34.3 Red Cell Distribution Width 12.0 Platelet Count 86 #L Mean Platelet Volume 11.9 H Neutrophils % Segmented Neutrophils % (Manual) 43 Band Neutrophils % (Manual) 3 Lymphocytes % Lymphocytes % (Manual) 30 Reactive Lymphocytes % (Manual) 14 H Monocytes % Monocytes % (Manual) 5 Eosinophils % Eosinophils % (Manual) 1 Basophils % Metamyelocytes % (manual) 1 H Myelocytes % (Manual) 3 H Nucleated Red Blood Cells % 1 H Neutrophils # Neutrophils # (Manual) 1.1 L Band Neutrophils # 0.0 Absolute Lymphocytes (Manual) 0.7 L Lymphocytes # Reactive Lymphocytes # 0.3 H Monocytes # Absolute Monocytes (Manual) 0.1 L Eosinophils # Basophils # Metamyelocytes # 0.0 Myelocytes # 0.0 Nucleated Red Blood Cells # Platelet Estimate DECREASED Giant Platelets 6 H Anisocytosis 1+ Microcytosis 1+ Sodium Level 140 Potassium Level 3.6 Chloride Level 104 Carbon Dioxide Level 25 Anion Gap 15 Blood Urea Nitrogen 4 L Creatinine 0.59 Glucose Level 74 Calcium Level 8.4 Medications Medications Current Medications Levofloxacin/ Dextrose (Levaquin 500mg/ D5W 100 ml (Pmx)) 100 ml @ 100 mls/hr Q24H IVPB Last administered on 05/21/17t 14:26; Admin Dose 100 MLS/HR; Start 05/16/17 at 14:30 Acetaminophen/ Hydrocodone Bitart ([place] (5/325)) 1 tab Q6H PRN PO pain Last administered on 05/17/17 09:15; Admin Dose 1 TAB; Start 05/16/17 at 14:30 Docusate Sodium (Colace) 100 mg BID PO Last administered on 05/17/17 08:15; Admin Dose 100 MG; Start 05/16/17 at 21:00 Ondansetron HCl (Zofran Inj) 4 mg Q4H PRN IV NAUSEA AND/OR VOMITING Last administered on 05/21/17 22:02; Admin Dose 4 MG; Start 05/17/17 at 02:00 Acetaminophen 650 mg 650 mg Q8H PRN PO PAIN AND OR ELEVATED TEMP Last administered on 05/17/17 13:21; Admin Dose 650 MG; Start 05/17/17 at 02:30 Sodium Chloride (NS) 1,000 ml @ 70 mls/hr [id number] IV Last administered on 02:08; Admin Dose 70 MLS/HR; Start 05/17/17 at 07:30 Pantoprazole (Protonix Iv) 40 mg DAILY@06 IV Last administered on 05/22/17 05 :45; Admin Dose 40 MG; Start 05/18/17 at 06:00 Morphine Sulfate (morphine) 6 mg Q4H PRN PO PAIN LEVEL 6-10 Last administered on 05/21/17 17:54; Admin Dose 6 MG; Start 05/18/17 at 16:00 Fluconazole (Diflucan) 100 mg DAILY PO Last administered on 05/22/17 09:08; Admin Dose 100 MG; Start 05/19/17 at 18:30; Stop 05/26/17 at 08:59 Cyanocobalamin (Vitamin B12 Inj) 1,000 mcg DAILY IM Last administered on 09:08; Admin Dose 1,000 MCG; Start 05/20/17 at 10:00 Metronidazole (Flagyl) 500 mg Q8 PO Last administered on 05/22/17 05:46; Admin Dose 500 MG; Start 05/20/17 at 14:00; Stop 05/25/17 at 13:59 Sucralfate (Carafate Susp) 1 gm QID GTB Last administered on 05/22/17 09:08; Admin Dose 1 GM; Start 05/20/17 at 17:00 Simethicone (Mylicon) 80 mg Q6 GTB Last administered on 05/22/17 05:46; Admin Dose 80 MG; Start 05/20/17 at 18:00 Nystatin (Nystatin Susp) 5 ml QID PO Last administered on 05/22/17 09:08; Admin Dose 5 ML; Start 05/21/17 at 17:00 YAS GRULLON NP May 22, 2017 12:20
[2017-05-22] MEDS: ESCITALOPRAM 10 MG TAB PO SCH (12:49)
[2017-05-22] MEDS: LEVOFLOXACIN 500MG/D5W (PMX) 100 ML IVPB SCH (14:13)
[2017-05-22] MEDS: ONDANSETRON 4 MG INJ IV PRN ×2 (14:14→21:44)
[2017-05-22] MEDS ORDERED: ALPRAZOLAM 0.5 MG TAB PO SCH (21:30)
[2017-05-22] MEDS: ACYCLOVIR IVPB SCH (21:38)
[2017-05-22] MEDS: SOD CHLORIDE 0.9% IVPB SCH (21:38)
[2017-05-22] MEDS ORDERED: ALPRAZOLAM 0.5 MG TAB PO PRN (22:00)
[2017-05-23] MEDS: ACYCLOVIR IVPB SCH ×3 (05:29→21:24)
[2017-05-23] MEDS: metroNIDAZOLE 500 MG TAB PO SCH ×3 (05:29→21:24)
[2017-05-23] MEDS: SOD CHLORIDE 0.9% IVPB SCH ×3 (05:29→21:24)
[2017-05-23] MEDS: PANTOPRAZOLE 40 MG INJ IV SCH (05:29)
[2017-05-23 06:23] LABS: ABNORMAL IP MESSAGE 1; HEMOGLOBIN 11.5 g/dl (12.0-16.0); MEAN CORPUSCULAR HEMOGLOBIN 31.1 pg (29.0-33.0); MEAN CORPUSCULAR HGB CONC 33.8 g/dl (32.0-37.0); MEAN CORPUSCULAR VOLUME 91.9 fl (82.0-101.0); PLATELET COUNT 114 10^3/UL (140-415); RED CELL DISTRIBUTION WIDTH 11.8 % (11.5-14.5); WHITE BLOOD COUNT 3.9 10^3/ul (4.8-10.8)
[2017-05-23 06:24] LABS: RETICULOCYTE COUNT % 0.8 % (0.5-1.5)
[2017-05-23 06:24] LABS: POSITIVE DIFF @See below
--- NOTE | 2017-05-23 06:27 | PN ---
DATE: 05/22/2017 HEMATOLOGY PROGRESS NOTE SUBJECTIVE: Patient states that she is feeling better. Still has some nausea and decreased appetit e. The patient is concerned about weight loss. She has lost approximately 15 pounds in the past month. OBJECTIVE: GENERAL: The patient is a well-developed, frail-appearing female who is in no acute distress. VITAL SIGNS: Temperature 97.9 orally, pulse 52 per minute and regular, respirations 16, blood press ure 99/58, pulse oximetry 100% on room air. SKIN: Pale, but no ecchymosis, no petechiae or rashes. HEENT: Normocephalic. No evidence of trauma. Pupils equal, round, react to light and accommodatio n. Sclerae nonicteric. Oral mucosa is moist. There are some ulcerative lesions on the patient's m outh, oral mucosa. The tongue is well papillated. NECK: Supple. No jugular venous distention or thyroid enlargement. CHEST: Clear to auscultation and percussion. No rhonchi, wheezes, rales or rubs. NODES: No palpable lymphadenopathy in any lymph node bearing area. ABDOMEN: Soft, no masses, no ascites, unable to palpate any splenomegaly. EXTREMITIES: Good range of motion. No clubbing, edema or cyanosis. NEUROLOGIC: Normal. LABORATORY DATA: White count today 2600 with an absolute neutrophil count of 1100, absolute lymphoc yte count of 700. The hemoglobin is 11.3, hematocrit 32.9, MCV 90.9, platelet count 86,000. Sodium 140, potassium 3.6, creatinine 4, BUN 15. LDH done on 05/20/2017 was 1253. Quantitative immunoglobulins are all normal. All serologies are thus far negative. The patient was found to have a vitamin B12 level of only 247. Unfortunately, there was no folic ac id level done at the same time. Vitamin B12 level was not repeated and the patient has since been s tarted on Vitamin B12 replacement. The patient's last CT scan of the abdomen and pelvis done on 05/19/2017 does suggest a "mild splenom egaly." Biopsies obtained during EGD of 05/19/2017 demonstrate acute erosive esophagitis due to herpes simpl ex virus. No evidence of malignancy. The gastric body and antrum biopsies did not show any histopa thological abnormalities. There was no evidence of malignancy, no evidence of H. pylori. ASSESSMENT: 1. Anemia and thrombocytopenia, etiology unknown. 2. Herpes esophagitis. DISCUSSION: Although review of the peripheral smear does not demonstrate any hypersegmented polys o r giant metamyelocytes, or any macrocytosis, this patient's hematologic problems could be related to underlying vitamin B12 deficiency. The patient does not have any atrophic gastritis, and does not have any tongue atrophy. The LDH, ho wever, is markedly elevated, which is also consistent with vitamin B12 deficiency. Mild splenomegal y is seen on recent CT scan, as well. The patient has been started on Vitamin B12 replacement. We will also check folic acid levels, and also start the patient on folic acid supplementation. Intrinsic factor antibodies have been ordered. Parietal cell antibodies were also ordered, but some how canceled. We will repeat this order. We will also obtain a homocysteine level, as well as meth ylmalonic acid level. Other studies at this time will include an FRANKLIN. The patient has been started on acyclovir intravenously. We will also start the patient on folic ac id 1 mg daily. On admission, the patient's iron was less than 10. This certainly suggests iron deficiency in spite of the fact that the ferritin was reported 774. The patient has been given some parenteral iron re placement. Dictated By: BRITTNEE GARCIA MD SR/NTS Conf#: [id number] DID#: [id number] CC: MEGHAN CURTIS MD;*EndCC*
[2017-05-23] MEDS: SOD CHLORIDE 0.9% 1,000 ML IV SCH ×2 (06:32→21:24)
[2017-05-23 08:04] LABS: EOSINOPHILS % (M) 3 % (0-7); METAMYELOCYTES %M 1 % (0-0); MONOCYTES % (M) 8 % (0-11); MYELOCYTES % (M) 2 % (0-0); PLATELET ESTIMATE DECREASED; POLYCHROMASIA 1+ (0-0); REACTIVE LYMPHOCYTES% (M) 15 % (0-0)
[2017-05-23 08:05] LABS: FOLATE 6.9 ng/ml (2.8-20.0)
[2017-05-23 08:43] VITALS: BP 106/73; RESP 16
[2017-05-23] MEDS: DOCUSATE SODIUM 100 MG CAP PO SCH ×2 (09:00→21:00)
--- NOTE | 2017-05-23 09:42 | PN ---
Date/Time of Note Date/Time of Note DATE: 05/23/17 TIME: 09:37 Assessment/Plan VTE Prophylaxis VTE Prophylaxis Intervention: SCD's Lines/Catheters IV [facility] Type (from [facility] Peripheral IV Urinary Cath still in place: No Assessment/Plan Chief Complaint/Hosp Course Chief Complaint/Hosp Course Assessment: Abdominal pain - Resolved Status post EGD 05/19/17 Impression: Severe erosive esophagitis.0Acute erosive esophagitis due to herpes simplex virus0 Moderate gastritis. Rule out H. pylori infection- negative Otherwise normal EGD. Leukopenia/trending up CT scan: Splenomegaly and prominent inguinal lymph nodes Vaginal spotting/bacterial vaginosis Oral thrush Trichotillomania Depression/anxiety disorder Plan: Continue nystatin for oral thrush Bone biopsy in near future Continue Diflucan 100 mg daily for a total of 7 days Review pathology discussed with patient Continue IV acyclovir- will which to po upon discharge- pt will need a total of 10 days Tolerating diet well Continue PPI, change to PO and continue Carafate Patient seen in collaboration with Dr. Grigsby Subjective: Patient is feeling well today, labs with some improvement today, discussed bx results with patient yesterday. Currently denies nausea or abd pain. Pt being seen by hematology. Continue current GI regimen at this time. PHYSICAL EXAMINATION: GENERAL: Pale appearing, alert & oriented x 3, in no acute distress SKIN: No lesions, pale, no stigmata chronic liver disease, no evidence of bleeding diathesis, multiple oral lesions LYMPHATIC: No palpable lymphadenopathy. HEAD: Normocephalic, atraumatic, no tenderness. Multiple bald spots due to pulling the hair. Wearing a hat. EYES: Pupils equal reactive to light and accommodation, full extraocular movements, sclera clear, non-icteric, no discharge. EARS/NOSE AND THROAT: Ears normal, nose normal, oropharynx normal, oral membranes well hydrated without lesions. NECK: Supple, no masses, thyroid normal. CHEST: Inspection within normal limits. CARDIOVASCULAR: Heart: Regular rate and rhythm. RESPIRATORY: Lungs clear to auscultation and percussion, no wheezing, no rubs GASTROINTESTINAL AND LIVER: Abdomen: Soft, no tenderness, non-distended, no hernias, no masses, no organomegaly, no ascites, guarding present, no rebound tenderness, normoactive bowel sounds. Rectal: Deferred. GENITOURINARY: Female genitalia within normal limits. EXTREMITIES: No cyanosis, clubbing or edema. Problems: Exam/Review of Systems Vital Signs Vitals Vital Signs Date Time Temp Pulse Resp B/P Pulse Ox O2 Delivery O2 Flow Rate FiO2 05/23/17 08:43 98.0 54 16 106/73 96 05/20/17 20:28 Room Air 05/19/17 20:45 2 Intake and Output 05/22/17 05/22/17 05/23/17 15:00 23:00 07:00 Intake Total 1720 ml 580 ml Balance 1720 ml 580 ml Results Result Diagram: 05/23/17 0439 05/22/17 0428 Results 24 hrs Laboratory Tests Test 05/23/17 04:38 05/23/17 04:39 Absolute Reticulocyte Count 0.030 Percent Reticulocyte Count 0.8 Lactate Dehydrogenase 816 H Folate 6.9 White Blood Count 3.9 #L Red Blood Count 3.70 L Hemoglobin 11.5 L Hematocrit 34.0 L Mean Corpuscular Volume 91.9 Mean Corpuscular Hemoglobin 31.1 Mean Corpuscular Hemoglobin Concent 33.8 Red Cell Distribution Width 11.8 Platelet Count 114 #L Mean Platelet Volume 12.0 H Neutrophils % Segmented Neutrophils % (Manual) 36 L Band Neutrophils % (Manual) 2 Lymphocytes % Lymphocytes % (Manual) 32 Reactive Lymphocytes % (Manual) 15 H Monocytes % Monocytes % (Manual) 8 Eosinophils % Eosinophils % (Manual) 3 Basophils % Metamyelocytes % (manual) 1 H Myelocytes % (Manual) 2 H Nucleated Red Blood Cells % 0.0 Neutrophils # Neutrophils # (Manual) 1.4 L Band Neutrophils # 0.0 Absolute Lymphocytes (Manual) 1.2 Lymphocytes # Reactive Lymphocytes # 0.5 H Monocytes # Absolute Monocytes (Manual) 0.3 Eosinophils # Basophils # Metamyelocytes # 0.0 Myelocytes # 0.0 Nucleated Red Blood Cells # Platelet Estimate DECREASED Polychromasia 1+ Medications Medications Current Medications Levofloxacin/ Dextrose (Levaquin 500mg/ D5W 100 ml (Pmx)) 100 ml @ 100 mls/hr Q24H IVPB Last administered on 05/22/17t 14:13; Admin Dose 100 MLS/HR; Start 05/16/17 at 14:30 Acetaminophen/ Hydrocodone Bitart ([place] (5/325)) 1 tab Q6H PRN PO pain Last administered on 05/17/17 09:15; Admin Dose 1 TAB; Start 05/16/17 at 14:30 Docusate Sodium (Colace) 100 mg BID PO Last administered on 05/17/17 08:15; Admin Dose 100 MG; Start 05/16/17 at 21:00 Ondansetron HCl (Zofran Inj) 4 mg Q4H PRN IV NAUSEA AND/OR VOMITING Last administered on 05/22/17 21:44; Admin Dose 4 MG; Start 05/17/17 at 02:00 Acetaminophen 650 mg 650 mg Q8H PRN PO PAIN AND OR ELEVATED TEMP Last administered on 05/17/17 13:21; Admin Dose 650 MG; Start 05/17/17 at 02:30 Sodium Chloride (NS) 1,000 ml @ 70 mls/hr [id number] IV Last administered on 06:32; Admin Dose 70 MLS/HR; Start 05/17/17 at 07:30 Pantoprazole (Protonix Iv) 40 mg DAILY@06 IV Last administered on 05/23/17 05 :29; Admin Dose 40 MG; Start 05/18/17 at 06:00 Morphine Sulfate (morphine) 6 mg Q4H PRN PO PAIN LEVEL 6-10 Last administered on 05/21/17 17:54; Admin Dose 6 MG; Start 05/18/17 at 16:00 Fluconazole (Diflucan) 100 mg DAILY PO Last administered on 05/22/17 09:08; Admin Dose 100 MG; Start 05/19/17 at 18:30; Stop 05/26/17 at 08:59 Cyanocobalamin (Vitamin B12 Inj) 1,000 mcg DAILY IM Last administered on 09:08; Admin Dose 1,000 MCG; Start 05/20/17 at 10:00 Metronidazole (Flagyl) 500 mg Q8 PO Last administered on 05/23/17 05:29; Admin Dose 500 MG; Start 05/20/17 at 14:00; Stop 05/25/17 at 13:59 Sucralfate (Carafate Susp) 1 gm QID GTB Last administered on 05/22/17 21:40; Admin Dose 1 GM; Start 05/20/17 at 17:00 Nystatin (Nystatin Susp) 5 ml QID PO Last administered on 05/22/17 21:40; Admin Dose 5 ML; Start 05/21/17 at 17:00 Escitalopram Oxalate (Lexapro) 10 mg DAILY PO Last administered on 05/22/17 12:49; Admin Dose 10 MG; Start 05/22/17 at 12:30 Simethicone 80 mg 80 mg Q6 PRN GTB DISTENSION/GAS/BLOATING; Start 05/22/17 at 13:00 Acyclovir/Sodium Chloride (Zovirax/NS) 100 ml @ 100 mls/hr Q8 IVPB Last administered on 05/23/17 05:29; Admin Dose 100 MLS/HR; Start 05/22/17 at 22: 00; Stop 06/01/17 at 09:00 Folic Acid (Folic Acid) 1 mg DAILY PO ; Start 05/23/17 at 09:00 Alprazolam (Xanax) 0.5 mg TID PRN PO ANXIETY; Start 05/22/17 at 22:00 BERTRAM FLORIAN May 23, 2017 09:42
[2017-05-23] MEDS: FLUCONAZOLE 100 MG TAB PO SCH (10:30)
[2017-05-23] MEDS: ESCITALOPRAM 10 MG TAB PO SCH (10:30)
[2017-05-23] MEDS: NYSTATIN SUSP 5 ML CUP PO SCH ×4 (10:30→21:00)
[2017-05-23] MEDS: SUCRALFATE (100 MG/ML) 10ML CUP GTB SCH ×4 (10:30→21:00)
[2017-05-23] MEDS: CYANOCOBALAMIN 1000 MCG INJ IM SCH (10:31)
[2017-05-23] MEDS: FOLIC ACID 1 MG TAB PO SCH (10:31)
--- NOTE | 2017-05-23 10:56 | PN ---
Date/Time of Note Date/Time of Note DATE: 05/23/17 TIME: 10:56 Assessment/Plan VTE Prophylaxis VTE Prophylaxis Intervention: SCD's Lines/Catheters [facility]from [facility] Peripheral IV Urinary Cath still in place: No Assessment/Plan Assessment/Plan 21-year-old female with past medical history only of depression recently started on Prozac about 2 months ago presented to the emergency room with generalized weakness, and dysuria who was found with pancytopenia with significant neutropenia requiring further hematology workup. 1. Pancytopenia with significant neutropenia- improving. Patient with strong family history of leukemia. - WBC and platelets trending up - Heme/onc on board and recommendations appreciated. Currently treating for B12 deficiency and workup pending. Will touch base if still plans for BM biopsy - ? if HSV etiology of BM suppression since appears to be improving after started on antiviral medications 2. Erosive esophagitis secondary to HSV - Currently on Acyclovir and will need total of 10 day course - Continue on Diflucan for 7 days total 3. Symptomatic Gardnerella vaginalis urinary tract infection -On treatment. 4. Depression, chronic - Psych evaluation appreciated - Continue on Lexapro 5. Disposition - continue monitoring on med/surg - Awaiting further recommendations from Heme/Onc Subjective 24 Hr Interval Summary Free Text/Dictation Patient denies any new complaints and no acute overnight events. Exam/Review of Systems Vital Signs Vitals Vital Signs Date Time Temp Pulse Resp B/P Pulse Ox O2 Delivery O2 Flow Rate FiO2 05/23/17 08:43 98.0 54 16 106/73 96 05/20/17 20:28 Room Air 05/19/17 20:45 2 Intake and Output 05/22/17 05/22/17 05/23/17 15:00 23:00 07:00 Intake Total 1720 ml 580 ml Balance 1720 ml 580 ml Exam General: Well developed,adequately built young female not in any acute distress . HEENT: Normocephalic, Atraumatic, Eyes: PEERL, Conjunctiva clear, Neck: Supple Cardiac: S1, S2 auscultated, regular rhythm and rate, no mumurs or gallop Pulmonary: Normal respiratory effort. Chest clear to auscultation bilaterally, no adventitious breath sounds GI: Soft, non tender, non- distended, no masses, no rebound tenderness or guarding. Bowel sounds active on all four quadrants Extremities: No cyanosis, clubbing, or edema. 2+ Pulses bilaterally. Full ROM on all four extremities. No focal weakness appreciated. Neurologic: Alert to person, place, time, and situation. Affect appropriate, intact sensation. Skin: Clean,dry, and intact. No ecchymosis, no rashes, or lesions Results Result Diagram: 05/23/17 0439 05/22/17 0428 Results 24 hrs Laboratory Tests Test 05/23/17 04:38 05/23/17 04:39 Absolute Reticulocyte Count 0.030 Percent Reticulocyte Count 0.8 Lactate Dehydrogenase 816 H Folate 6.9 White Blood Count 3.9 #L Red Blood Count 3.70 L Hemoglobin 11.5 L Hematocrit 34.0 L Mean Corpuscular Volume 91.9 Mean Corpuscular Hemoglobin 31.1 Mean Corpuscular Hemoglobin Concent 33.8 Red Cell Distribution Width 11.8 Platelet Count 114 #L Mean Platelet Volume 12.0 H Neutrophils % Segmented Neutrophils % (Manual) 36 L Band Neutrophils % (Manual) 2 Lymphocytes % Lymphocytes % (Manual) 32 Reactive Lymphocytes % (Manual) 15 H Monocytes % Monocytes % (Manual) 8 Eosinophils % Eosinophils % (Manual) 3 Basophils % Metamyelocytes % (manual) 1 H Myelocytes % (Manual) 2 H Nucleated Red Blood Cells % 0.0 Neutrophils # Neutrophils # (Manual) 1.4 L Band Neutrophils # 0.0 Absolute Lymphocytes (Manual) 1.2 Lymphocytes # Reactive Lymphocytes # 0.5 H Monocytes # Absolute Monocytes (Manual) 0.3 Eosinophils # Basophils # Metamyelocytes # 0.0 Myelocytes # 0.0 Nucleated Red Blood Cells # Platelet Estimate DECREASED Polychromasia 1+ Medications Medications Current Medications Levofloxacin/ Dextrose (Levaquin 500mg/ D5W 100 ml (Pmx)) 100 ml @ 100 mls/hr Q24H IVPB Last administered on 05/22/17 14:13; Admin Dose 100 MLS/HR; Start 05/16/17 at 14:30 Acetaminophen/ Hydrocodone Bitart ([place] (5/325)) 1 tab Q6H PRN PO pain Last administered on 05/17/17 09:15; Admin Dose 1 TAB; Start 05/16/17 at 14:30 Docusate Sodium (Colace) 100 mg BID PO Last administered on 05/17/17 08:15; Admin Dose 100 MG; Start 05/16/17 at 21:00 Ondansetron HCl (Zofran Inj) 4 mg Q4H PRN IV NAUSEA AND/OR VOMITING Last administered on 05/22/17 21:44; Admin Dose 4 MG; Start 05/17/17 at 02:00 Acetaminophen 650 mg 650 mg Q8H PRN PO PAIN AND OR ELEVATED TEMP Last administered on 05/17/17 13:21; Admin Dose 650 MG; Start 05/17/17 at 02:30 Sodium Chloride (NS) 1,000 ml @ 70 mls/hr [id number] IV Last administered on 06:32; Admin Dose 70 MLS/HR; Start 05/17/17 at 07:30 Morphine Sulfate (morphine) 6 mg Q4H PRN PO PAIN LEVEL 6-10 Last administered on 05/21/17 17:54; Admin Dose 6 MG; Start 05/18/17 at 16:00 Fluconazole (Diflucan) 100 mg DAILY PO Last administered on 05/23/17 10:30; Admin Dose 100 MG; Start 05/19/17 at 18:30; Stop 05/26/17 at 08:59 Cyanocobalamin (Vitamin B12 Inj) 1,000 mcg DAILY IM Last administered on 10:31; Admin Dose 1,000 MCG; Start 05/20/17 at 10:00 Metronidazole (Flagyl) 500 mg Q8 PO Last administered on 05/23/17 05:29; Admin Dose 500 MG; Start 05/20/17 at 14:00; Stop 05/25/17 at 13:59 Sucralfate (Carafate Susp) 1 gm QID GTB Last administered on 05/23/17 10:30; Admin Dose 1 GM; Start 05/20/17 at 17:00 Nystatin (Nystatin Susp) 5 ml QID PO Last administered on 05/23/17 10:30; Admin Dose 5 ML; Start 05/21/17 at 17:00 Escitalopram Oxalate (Lexapro) 10 mg DAILY PO Last administered on 05/23/17 10:30; Admin Dose 10 MG; Start 05/22/17 at 12:30 Simethicone 80 mg 80 mg Q6 PRN GTB DISTENSION/GAS/BLOATING; Start 05/22/17 at 13:00 Acyclovir/Sodium Chloride (Zovirax/NS) 100 ml @ 100 mls/hr Q8 IVPB Last administered on 05/23/17 05:29; Admin Dose 100 MLS/HR; Start 05/22/17 at 22: 00; Stop 06/01/17 at 09:00 Folic Acid (Folic Acid) 1 mg DAILY PO Last administered on 05/23/17 10:31; Admin Dose 1 MG; Start 05/23/17 at 09:00 Alprazolam (Xanax) 0.5 mg TID PRN PO ANXIETY; Start 05/22/17 at 22:00 Pantoprazole (Protonix Tab) 40 mg DAILY@06 PO ; Start 05/24/17 at 06:00 BRITT BILLY MD May 23, 2017 10:56
--- NOTE | 2017-05-23 17:43 | PN ---
Date/Time of Note Date/Time of Note DATE: 05/23/17 TIME: 17:38 Assessment/Plan VTE Prophylaxis VTE Prophylaxis Intervention: ambulation Lines/Catheters IV C[facility]ter Type (from [facility]): Peripheral IV Urinary Cath still in place: No Assessment/Plan Chief Complaint/Hosp Course 21 yo woman with presentation to ER because of abdominal pain. She was found to have pancytopenia and urinary tract infection. She also had been started about two months ago on Prozac, which helped her psychiatric issues but she denies any blood counts as outpatient. Last CBC's were in November and June in the ER. She also is aware of ovarian cysts but overall she describes herself as a healthy young woman. She denies taking any drugs beside Prozac. She does use marijuana but denies use of needles or other recreational drugs. There are no known drug allergies. Father is not aware of anything else but he says she often does not listen to him. Problems: Assessment/Plan Discussed with mother. WBC is up to 3.9 and plt up to 114. Hgb 11.5. Herpes esophagitis is being treated with acyclovir but mother says that her daughter does not want her father to know that she3 has herpes. UTI is also being treated with antibiotic. B12 was started for possible deficiency but the rise in counts began before the B12 started. The low B12 could be due to decreased binding proteins. Full evaluation is pending. In any event, if the pancytopenia resolves as the infections are treated, then a bone marrow is not needed. Continue to monitor. Subjective 24 Hr Interval Summary Free Text/Dictation t sleeping but mother says she is slowly getting better. Exam/Review of Systems Vital Signs Vitals Vital Signs Date Time Temp Pulse Resp B/P Pulse Ox O2 Delivery O2 Flow Rate FiO2 05/23/17 08:43 98.0 54 16 106/73 96 05/20/17 20:28 Room Air 05/19/17 20:45 2 Intake and Output 05/22/17 05/22/17 05/23/17 14:59 22:59 06:59 Intake Total 1720 ml 580 ml Balance 1720 ml 580 ml Exam Pt sleeping Results Result Diagram: 05/23/17 0439 05/22/17 0428 Results 24 hrs Laboratory Tests Test 05/23/17 04:38 05/23/17 04:39 Absolute Reticulocyte Count 0.030 Percent Reticulocyte Count 0.8 Lactate Dehydrogenase 816 H Folate 6.9 White Blood Count 3.9 #L Red Blood Count 3.70 L Hemoglobin 11.5 L Hematocrit 34.0 L Mean Corpuscular Volume 91.9 Mean Corpuscular Hemoglobin 31.1 Mean Corpuscular Hemoglobin Concent 33.8 Red Cell Distribution Width 11.8 Platelet Count 114 #L Mean Platelet Volume 12.0 H Neutrophils % Segmented Neutrophils % (Manual) 36 L Band Neutrophils % (Manual) 2 Lymphocytes % Lymphocytes % (Manual) 32 Reactive Lymphocytes % (Manual) 15 H Monocytes % Monocytes % (Manual) 8 Eosinophils % Eosinophils % (Manual) 3 Basophils % Metamyelocytes % (manual) 1 H Myelocytes % (Manual) 2 H Nucleated Red Blood Cells % 0.0 Neutrophils # Neutrophils # (Manual) 1.4 L Band Neutrophils # 0.0 Absolute Lymphocytes (Manual) 1.2 Lymphocytes # Reactive Lymphocytes # 0.5 H Monocytes # Absolute Monocytes (Manual) 0.3 Eosinophils # Basophils # Metamyelocytes # 0.0 Myelocytes # 0.0 Nucleated Red Blood Cells # Platelet Estimate DECREASED Polychromasia 1+ Medications Medications Current Medications Acetaminophen/ Hydrocodone Bitart ([place] (5/325)) 1 tab Q6H PRN PO pain Last administered on 05/17/17 09:15; Admin Dose 1 TAB; Start 05/16/17 at 14:30 Docusate Sodium (Colace) 100 mg BID PO Last administered on 05/17/17 08:15; Admin Dose 100 MG; Start 05/16/17 at 21:00 Ondansetron HCl (Zofran Inj) 4 mg Q4H PRN IV NAUSEA AND/OR VOMITING Last administered on 05/22/17 21:44; Admin Dose 4 MG; Start 05/17/17 at 02:00 Acetaminophen 650 mg 650 mg Q8H PRN PO PAIN AND OR ELEVATED TEMP Last administered on 05/17/17 13:21; Admin Dose 650 MG; Start 05/17/17 at 02:30 Sodium Chloride (NS) 1,000 ml @ 70 mls/hr [id number] IV Last administered on 06:32; Admin Dose 70 MLS/HR; Start 05/17/17 at 07:30 Morphine Sulfate (morphine) 6 mg Q4H PRN PO PAIN LEVEL 6-10 Last administered on 05/21/17 17:54; Admin Dose 6 MG; Start 05/18/17 at 16:00 Fluconazole (Diflucan) 100 mg DAILY PO Last administered on 05/23/17 10:30; Admin Dose 100 MG; Start 05/19/17 at 18:30; Stop 05/26/17 at 08:59 Cyanocobalamin (Vitamin B12 Inj) 1,000 mcg DAILY IM Last administered on 10:31; Admin Dose 1,000 MCG; Start 05/20/17 at 10:00 Metronidazole (Flagyl) 500 mg Q8 PO Last administered on 05/23/17 13:18; Admin Dose 500 MG; Start 05/20/17 at 14:00; Stop 05/25/17 at 13:59 Sucralfate (Carafate Susp) 1 gm QID GTB Last administered on 05/23/17 13:15; Admin Dose 1 GM; Start 05/20/17 at 17:00 Nystatin (Nystatin Susp) 5 ml QID PO Last administered on 05/23/17 13:15; Admin Dose 5 ML; Start 05/21/17 at 17:00 Escitalopram Oxalate (Lexapro) 10 mg DAILY PO Last administered on 05/23/17 10:30; Admin Dose 10 MG; Start 05/22/17 at 12:30 Simethicone 80 mg 80 mg Q6 PRN GTB DISTENSION/GAS/BLOATING; Start 05/22/17 at 13:00 Acyclovir/Sodium Chloride (Zovirax/NS) 100 ml @ 100 mls/hr Q8 IVPB Last administered on 05/23/17 13:18; Admin Dose 100 MLS/HR; Start 05/22/17 at 22: 00; Stop 06/01/17 at 09:00 Folic Acid (Folic Acid) 1 mg DAILY PO Last administered on 05/23/17 10:31; Admin Dose 1 MG; Start 05/23/17 at 09:00 Alprazolam (Xanax) 0.5 mg TID PRN PO ANXIETY; Start 05/22/17 at 22:00 Pantoprazole (Protonix Tab) 40 mg DAILY@06 PO ; Start 05/24/17 at 06:00 SHANAE REICH MD May 23, 2017 17:43
[2017-05-23] MEDS: ONDANSETRON 4 MG INJ IV PRN (18:40)
[2017-05-23 20:10] VITALS: BP 103/65; RESP 18
[2017-05-23 20:31] LABS: INTRINSIC FACTOR AB POSITIVE
[2017-05-23 23:27] LABS: ALBUMIN 3.5 g/dL (3.8-4.8)
[2017-05-24 02:02] VITALS: BP 100/52; RESP 18
[2017-05-24 05:33] LABS: ABNORMAL IP MESSAGE 1; HEMATOCRIT 34.2 % (37.0-47.0); HEMOGLOBIN 11.7 g/dl (12.0-16.0); MEAN CORPUSCULAR HEMOGLOBIN 30.6 pg (29.0-33.0); MEAN CORPUSCULAR HGB CONC 34.2 g/dl (32.0-37.0); MEAN CORPUSCULAR VOLUME 89.5 fl (82.0-101.0); MEAN PLATELET VOLUME 11.8 fl (7.4-10.4); PLATELET COUNT 148 10^3/UL (140-415); RED BLOOD COUNT 3.82 10^6/ul (4.20-5.40); RED CELL DISTRIBUTION WIDTH 11.8 % (11.5-14.5); WHITE BLOOD COUNT 4.7 10^3/ul (4.8-10.8)
[2017-05-24] MEDS: PANTOPRAZOLE (EC) 40 MG TAB PO SCH (05:44)
[2017-05-24] MEDS: SOD CHLORIDE 0.9% IVPB SCH ×3 (05:44→22:13)
[2017-05-24] MEDS: metroNIDAZOLE 500 MG TAB PO SCH ×3 (05:44→22:12)
[2017-05-24] MEDS: ACYCLOVIR IVPB SCH ×3 (05:44→22:13)
[2017-05-24 06:14] LABS: POSITIVE DIFF @See below
[2017-05-24 06:26] LABS: ALBUMIN 3.1 g/dl (3.3-4.9); CALCIUM 8.5 mg/dl (8.4-10.2); CREATININE 0.65 mg/dl (0.44-1.00); MAGNESIUM 1.8 mg/dl (1.7-2.5); PHOSPHORUS 2.6 mg/dl (2.5-4.9); POTASSIUM 3.3 mmol/L (3.5-5.1)
[2017-05-24 08:01] VITALS: BP 102/65; RESP 18
[2017-05-24] MEDS: DOCUSATE SODIUM 100 MG CAP PO SCH ×2 (09:00→22:12)
[2017-05-24 09:33] LABS: ANISOCYTOSIS 1+ (0-0); GIANT THROMBO% (M) 1 % (0-0); METAMYELOCYTES %M 6 % (0-0); MICROCYTOSIS 1+ (0-0); MONOCYTES % (M) 15 % (0-11); MYELOCYTES % (M) 1 % (0-0); PLATELET ESTIMATE NORMAL; POIKILOCYTOSIS 1+ (0-0); POLYCHROMASIA 3+ (0-0)
[2017-05-24] MEDS: SOD CHLORIDE 0.9% 1,000 ML IV SCH ×2 (11:06→14:35)
[2017-05-24] MEDS: FOLIC ACID 1 MG TAB PO SCH (11:24)
[2017-05-24] MEDS: FLUCONAZOLE 100 MG TAB PO SCH (11:24)
[2017-05-24] MEDS: SUCRALFATE (100 MG/ML) 10ML CUP GTB SCH ×4 (11:24→22:11)
[2017-05-24] MEDS: ESCITALOPRAM 10 MG TAB PO SCH (11:24)
[2017-05-24] MEDS: CYANOCOBALAMIN 1000 MCG INJ IM SCH (11:25)
[2017-05-24] MEDS: NYSTATIN SUSP 5 ML CUP PO SCH ×4 (11:25→22:11)
[2017-05-24] MEDS: ONDANSETRON 4 MG INJ IV PRN (11:25)
--- NOTE | 2017-05-24 11:36 | PN ---
Date/Time of Note Date/Time of Note DATE: 05/24/17 TIME: 11:30 Assessment/Plan VTE Prophylaxis VTE Prophylaxis Intervention: SCD's Lines/Catheters [facility] Type (from [facility] Peripheral IV Urinary Cath still in place: No Assessment/Plan Chief Complaint/Hosp Course Chief Complaint/Hosp Course Assessment: Abdominal pain - Resolved Status post EGD 05/19/17 Impression: Severe erosive esophagitis. 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 Rule out H. pylori infection- negative Otherwise normal EGD. Leukopenia/trending up CT scan: Splenomegaly and prominent inguinal lymph nodes Vaginal spotting/bacterial vaginosis Oral thrush Trichotillomania Depression/anxiety disorder Plan: Continue nystatin for oral thrush Continue Diflucan 100 mg daily for a total of 7 days Review pathology discussed with patient Continue IV acyclovir- will which to po upon discharge- pt will need a total of 10 days Tolerating diet well Continue PPI and Carafate therapy Patient seen in collaboration with Dr. Grigsby Subjective: Patient is feeling ok today, enc po intake, she states improvement of thrush, we will continue current GI regimen, will change medication to po on discharge. PHYSICAL EXAMINATION: GENERAL: Pale appearing, alert & oriented x 3, in no acute distress SKIN: No lesions, pale, no stigmata chronic liver disease, no evidence of bleeding diathesis, multiple oral lesions LYMPHATIC: No palpable lymphadenopathy. HEAD: Normocephalic, atraumatic, no tenderness. Multiple bald spots due to pulling the hair. Wearing a hat. EYES: Pupils equal reactive to light and accommodation, full extraocular movements, sclera clear, non-icteric, no discharge. EARS/NOSE AND THROAT: Ears normal, nose normal, oropharynx normal, oral membranes well hydrated without lesions. NECK: Supple, no masses, thyroid normal. CHEST: Inspection within normal limits. CARDIOVASCULAR: Heart: Regular rate and rhythm. RESPIRATORY: Lungs clear to auscultation and percussion, no wheezing, no rubs GASTROINTESTINAL AND LIVER: Abdomen: Soft, no tenderness, non-distended, no hernias, no masses, no organomegaly, no ascites, guarding present, no rebound tenderness, normoactive bowel sounds. Rectal: Deferred. GENITOURINARY: Female genitalia within normal limits. EXTREMITIES: No cyanosis, clubbing or edema. Problems: Exam/Review of Systems Vital Signs Vitals Vital Signs Date Time Temp Pulse Resp B/P Pulse Ox O2 Delivery O2 Flow Rate FiO2 05/24/17 08:01 98.0 68 18 102/65 97 05/20/17 20:28 Room Air Intake and Output 05/23/17 05/23/17 05/24/17 15:00 23:00 07:00 Intake Total 100 ml 1820 ml 1260 ml Output Total 1200 ml Balance 100 ml 1820 ml 60 ml Results Result Diagram: 05/24/17 0432 05/24/17 0432 Results 24 hrs Laboratory Tests Test 05/24/17 04:32 White Blood Count 4.7 #L Red Blood Count 3.82 L Hemoglobin 11.7 L Hematocrit 34.2 L Mean Corpuscular Volume 89.5 Mean Corpuscular Hemoglobin 30.6 Mean Corpuscular Hemoglobin Concent 34.2 Red Cell Distribution Width 11.8 Platelet Count 148 # Mean Platelet Volume 11.8 H Neutrophils % Segmented Neutrophils % (Manual) 47 Band Neutrophils % (Manual) 6 H Lymphocytes % Lymphocytes % (Manual) 25 Monocytes % Monocytes % (Manual) 15 H Eosinophils % Basophils % Metamyelocytes % (manual) 6 H Myelocytes % (Manual) 1 H Nucleated Red Blood Cells % 0.0 Neutrophils # Neutrophils # (Manual) 2.2 Band Neutrophils # 0.2 Absolute Lymphocytes (Manual) 1.1 Lymphocytes # Monocytes # Absolute Monocytes (Manual) 0.7 Eosinophils # Basophils # Metamyelocytes # 0.2 H Myelocytes # 0.0 Nucleated Red Blood Cells # Platelet Estimate NORMAL Giant Platelets 1 H Polychromasia 3+ Poikilocytosis 1+ Anisocytosis 1+ Microcytosis 1+ Sodium Level 140 Potassium Level 3.3 L Chloride Level 106 Carbon Dioxide Level 25 Anion Gap 12 Blood Urea Nitrogen 3 L Creatinine 0.65 Glucose Level 75 Calcium Level 8.5 Phosphorus Level 2.6 Magnesium Level 1.8 Albumin 3.1 L Medications Medications Current Medications Acetaminophen/ Hydrocodone Bitart ([place] (5/325)) 1 tab Q6H PRN PO pain Last administered on 05/17/17 09:15; Admin Dose 1 TAB; Start 05/16/17 at 14:30 Docusate Sodium (Colace) 100 mg BID PO Last administered on 05/17/17 08:15; Admin Dose 100 MG; Start 05/16/17 at 21:00 Ondansetron HCl (Zofran Inj) 4 mg Q4H PRN IV NAUSEA AND/OR VOMITING Last administered on 05/23/17 18:40; Admin Dose 4 MG; Start 05/17/17 at 02:00 Acetaminophen 650 mg 650 mg Q8H PRN PO PAIN AND OR ELEVATED TEMP Last administered on 05/17/17 13:21; Admin Dose 650 MG; Start 05/17/17 at 02:30 Sodium Chloride (NS) 1,000 ml @ 70 mls/hr [id number] IV Last administered on 21:24; Admin Dose 70 MLS/HR; Start 05/17/17 at 07:30 Morphine Sulfate (morphine) 6 mg Q4H PRN PO PAIN LEVEL 6-10 Last administered on 05/21/17 17:54; Admin Dose 6 MG; Start 05/18/17 at 16:00 Fluconazole (Diflucan) 100 mg DAILY PO Last administered on 05/23/17 10:30; Admin Dose 100 MG; Start 05/19/17 at 18:30; Stop 05/26/17 at 08:59 Cyanocobalamin (Vitamin B12 Inj) 1,000 mcg DAILY IM Last administered on 10:31; Admin Dose 1,000 MCG; Start 05/20/17 at 10:00 Metronidazole (Flagyl) 500 mg Q8 PO Last administered on 05/24/17 05:44; Admin Dose 500 MG; Start 05/20/17 at 14:00; Stop 05/25/17 at 13:59 Sucralfate (Carafate Susp) 1 gm QID GTB Last administered on 05/23/17 18:40; Admin Dose 1 GM; Start 05/20/17 at 17:00 Nystatin (Nystatin Susp) 5 ml QID PO Last administered on 05/23/17 18:40; Admin Dose 5 ML; Start 05/21/17 at 17:00 Escitalopram Oxalate (Lexapro) 10 mg DAILY PO Last administered on 05/23/17 10:30; Admin Dose 10 MG; Start 05/22/17 at 12:30 Simethicone 80 mg 80 mg Q6 PRN GTB DISTENSION/GAS/BLOATING; Start 05/22/17 at 13:00 Acyclovir/Sodium Chloride (Zovirax/NS) 100 ml @ 100 mls/hr Q8 IVPB Last administered on 05/24/17 05:44; Admin Dose 100 MLS/HR; Start 05/22/17 at 22: 00; Stop 06/01/17 at 09:00 Folic Acid (Folic Acid) 1 mg DAILY PO Last administered on 05/23/17 10:31; Admin Dose 1 MG; Start 05/23/17 at 09:00 Alprazolam (Xanax) 0.5 mg TID PRN PO ANXIETY Last administered on 05/23/17 21 :25; Admin Dose 0.5 MG; Start 05/22/17 at 22:00 Pantoprazole (Protonix Tab) 40 mg DAILY@06 PO Last administered on 05/24/17 05:44; Admin Dose 40 MG; Start 05/24/17 at 06:00 BERTRAM FLORIAN May 24, 2017 11:36
[2017-05-24 13:07] LABS: HOMOCYSTEINE - CARDIOVASCULAR 4.6 umol/L (<10.4)
[2017-05-24 15:03] LABS: PARTIAL THROMBOPLASTIN TIME 31.8 Sec (25.0-35.0)
--- NOTE | 2017-05-24 15:04 | PN ---
DATE: 05/24/2017 SUBJECTIVE: The patient states she is feeling much better. She denies any nausea or vomiting. No pain on swallowing. Patient is very anxious to go home. OBJECTIVE: GENERAL: The patient is a well-developed but frail-appearing female who is in no acute distress. VITAL SIGNS: Temperature 98, pulse 68 per minute and regular, respirations 18, blood pressure 102/6 5 and pulse oximetry 97% on room air. SKIN: No ecchymosis, no petechiae or rashes. HEENT: Normocephalic. No evidence of trauma. The pupils are equal, round, react to light and acco mmodation. Sclerae nonicteric. Oral mucosa is moist without lesions. Tongue is well papillated. No gingival hyperplasia, no hypertrophy of Wal[place]yer ring. NECK: Supple, no jugular venous distention or thyroid enlargement. CHEST: Clear to auscultation and percussion. No rhonchi, wheezes, rales or rubs. NODES: No palpable lymphadenopathy in any lymph node bearing area. ABDOMEN: Soft, without masses or ascites. No splenomegaly is detected. EXTREMITIES: Good range of motion, no clubbing, edema or cyanosis. No palpable cords or Homans sig n. NEUROLOGIC: Normal. LABORATORY DATA: White count 4700, hemoglobin 11.7, hematocrit 34.2 and platelet count 148,000. So dium 140, potassium 3.3, albumin is 3.1, creatinine 0.65, BUN 3. The intrinsic factor antibody is positive. Parietal cell antibodies are still pending. Homocystein e level is 4.6. Methylmalonic acid level is pending. Folic acid is 6.9. Protime at the time of admission was 14.8 seconds with INR of 1.14, but PTT was 42.1 seconds. ASSESSMENT: 1. Anemia and thrombocytopenia, likely multifactorial in etiology. It appears to be related to bot h vitamin B12 deficiency on the basis of pernicious anemia as well as bone marrow suppression due to the patient's herpetic esophagitis. 2. Herpes esophagitis. DISCUSSION: The patient should continue to receive vitamin B12 1000 mcg daily for a total of 7 days . I have informed her that here afterwards she should receive 1000 mcg of vitamin B12 on a monthly basis. I have tried to explain to the patient that this cannot be done orally as she lacks the abil ity to absorb vitamin B12. The patient will require continued therapy with acyclovir, although I am not clear exactly how long therapy will be needed. Apparently will require a total of 10-day course. The patient also had a prolonged PTT on admission. Will repeat that PTT today. If this is still pr olonged, we will obtain a 50/50 PTT to rule out the possibility of a "lupus anticoagulant." Dictated By: BRITTNEE GARCIA MD, SR/SIRIA Conf#: [id number] DID#: [id number]
--- NOTE | 2017-05-24 16:02 | PN ---
Date/Time of Note Date/Time of Note DATE: 05/24/17 TIME: 15:58 Assessment/Plan VTE Prophylaxis VTE Prophylaxis Intervention: SCD's Lines/Catheters IV Catheter Type (from Nrs): Peripheral IV Urinary Cath still in place: No Assessment/Plan Chief Complaint/Hosp Course S: pt has improvement in toleartion of diet today. Family at bedside, updated as well. O: VS (see below) PE: General: Well developed,adequately built young female not in any acute distress . HEENT: Normocephalic, Atraumatic, Eyes: PEERL, Conjunctiva clear, Neck: Supple Cardiac: S1, S2 auscultated, regular rhythm and rate, no mumurs or gallop Pulmonary: Normal respiratory effort. Chest clear to auscultation bilaterally, no adventitious breath sounds GI: Soft, non tender, non- distended, no masses, no rebound tenderness or guarding. Bowel sounds active on all four quadrants Extremities: No cyanosis, clubbing, or edema. 2+ Pulses bilaterally. Full ROM on all four extremities. No focal weakness appreciated. Neurologic: Alert to person, place, time, and situation. Affect appropriate, intact sensation. Skin: Clean,dry, and intact. No ecchymosis, no rashes, or lesions Assessment/Plan: 21-year-old female with past medical history only of depression recently started on Prozac about 2 months ago presented to the emergency room with generalized weakness, and dysuria who was found with pancytopenia with significant neutropenia requiring further hematology workup. 1. Pancytopenia with significant neutropenia- improving with tx of her HSV infx (throat) and B12 def with IM injections.. Patient with strong family history of leukemia, but appears less likely now given response to meds mentioned. - Heme/onc continue treating for B12 deficiency and workup pending. Will touch base if still plans for BM biopsy - tx the HSV etiology of BM suppression with Acyclovir since appears to be improving after started on antiviral medications 2. Erosive esophagitis secondary to HSV - Currently on Acyclovir and will need total of 10 day course - Continue on Diflucan for 7 days total as well 3. Symptomatic Gardnerella vaginalis urinary tract infection -On treatment. 4. Depression, chronic - Psych evaluation appreciated - Continue on Lexapro 5. Disposition - continue monitoring on med/surg - Awaiting further recommendations from Heme/Onc Problems: Exam/Review of Systems Vital Signs Vitals Vital Signs Date Time Temp Pulse Resp B/P Pulse Ox O2 Delivery O2 Flow Rate FiO2 05/24/17 08:01 98.0 68 18 102/65 97 05/20/17 20:28 Room Air Intake and Output 05/23/17 05/23/17 05/24/17 14:59 22:59 06:59 Intake Total 100 ml 1820 ml 1260 ml Output Total 1200 ml Balance 100 ml 1820 ml 60 ml Results Result Diagram: 05/24/17 0432 05/24/17 0432 Results 24 hrs Laboratory Tests Test 05/24/17 04:32 05/24/17 14:14 White Blood Count 4.7 #L Red Blood Count 3.82 L Hemoglobin 11.7 L Hematocrit 34.2 L Mean Corpuscular Volume 89.5 Mean Corpuscular Hemoglobin 30.6 Mean Corpuscular Hemoglobin Concent 34.2 Red Cell Distribution Width 11.8 Platelet Count 148 # Mean Platelet Volume 11.8 H Neutrophils % Segmented Neutrophils % (Manual) 47 Band Neutrophils % (Manual) 6 H Lymphocytes % Lymphocytes % (Manual) 25 Monocytes % Monocytes % (Manual) 15 H Eosinophils % Basophils % Metamyelocytes % (manual) 6 H Myelocytes % (Manual) 1 H Nucleated Red Blood Cells % 0.0 Neutrophils # Neutrophils # (Manual) 2.2 Band Neutrophils # 0.2 Absolute Lymphocytes (Manual) 1.1 Lymphocytes # Monocytes # Absolute Monocytes (Manual) 0.7 Eosinophils # Basophils # Metamyelocytes # 0.2 H Myelocytes # 0.0 Nucleated Red Blood Cells # Platelet Estimate NORMAL Giant Platelets 1 H Polychromasia 3+ Poikilocytosis 1+ Anisocytosis 1+ Microcytosis 1+ Sodium Level 140 Potassium Level 3.3 L Chloride Level 106 Carbon Dioxide Level 25 Anion Gap 12 Blood Urea Nitrogen 3 L Creatinine 0.65 Glucose Level 75 Calcium Level 8.5 Phosphorus Level 2.6 Magnesium Level 1.8 Albumin 3.1 L Activated Partial Thromboplast Time 31.8 Mix PTT Normal Plasma Immediate Pending Medications Medications Current Medications Acetaminophen/ Hydrocodone Bitart ([place] (5/325)) 1 tab Q6H PRN PO pain Last administered on 05/17/17t 09:15; Admin Dose 1 TAB; Start 05/16/17 at 14:30 Docusate Sodium (Colace) 100 mg BID PO Last administered on 05/17/17 08:15; Admin Dose 100 MG; Start 05/16/17 at 21:00 Ondansetron HCl (Zofran Inj) 4 mg Q4H PRN IV NAUSEA AND/OR VOMITING Last administered on 05/24/17 11:25; Admin Dose 4 MG; Start 05/17/17 at 02:00 Acetaminophen 650 mg 650 mg Q8H PRN PO PAIN AND OR ELEVATED TEMP Last administered on 05/17/17 13:21; Admin Dose 650 MG; Start 05/17/17 at 02:30 Sodium Chloride (NS) 1,000 ml @ 70 mls/hr [id number] IV Last administered on 14:35; Admin Dose 70 MLS/HR; Start 05/17/17 at 07:30 Morphine Sulfate (morphine) 6 mg Q4H PRN PO PAIN LEVEL 6-10 Last administered on 05/21/17 17:54; Admin Dose 6 MG; Start 05/18/17 at 16:00 Fluconazole (Diflucan) 100 mg DAILY PO Last administered on 05/24/17 11:24; Admin Dose 100 MG; Start 05/19/17 at 18:30; Stop 05/26/17 at 08:59 Cyanocobalamin (Vitamin B12 Inj) 1,000 mcg DAILY IM Last administered on 11:25; Admin Dose 1,000 MCG; Start 05/20/17 at 10:00 Metronidazole (Flagyl) 500 mg Q8 PO Last administered on 05/24/17 14:34; Admin Dose 500 MG; Start 05/20/17 at 14:00; Stop 05/25/17 at 13:59 Sucralfate (Carafate Susp) 1 gm QID GTB Last administered on 05/24/17 11:24; Admin Dose 1 GM; Start 05/20/17 at 17:00 Nystatin (Nystatin Susp) 5 ml QID PO Last administered on 05/24/17 11:25; Admin Dose 5 ML; Start 05/21/17 at 17:00 Escitalopram Oxalate (Lexapro) 10 mg DAILY PO Last administered on 05/24/17 11:24; Admin Dose 10 MG; Start 05/22/17 at 12:30 Simethicone 80 mg 80 mg Q6 PRN GTB DISTENSION/GAS/BLOATING; Start 05/22/17 at 13:00 Acyclovir/Sodium Chloride (Zovirax/NS) 100 ml @ 100 mls/hr Q8 IVPB Last administered on 05/24/17 14:34; Admin Dose 100 MLS/HR; Start 05/22/17 at 22: 00; Stop 06/01/17 at 09:00 Folic Acid (Folic Acid) 1 mg DAILY PO Last administered on 05/24/17 11:24; Admin Dose 1 MG; Start 05/23/17 at 09:00 Alprazolam (Xanax) 0.5 mg TID PRN PO ANXIETY Last administered on 05/23/17 21 :25; Admin Dose 0.5 MG; Start 05/22/17 at 22:00 Pantoprazole (Protonix Tab) 40 mg DAILY@06 PO Last administered on 05/24/17 05:44; Admin Dose 40 MG; Start 05/24/17 at 06:00 OLAYINKA SKY May 24, 2017 16:02
[2017-05-24 16:16] VITALS: BP 100/57; RESP 18
[2017-05-24 18:17] LABS: ANA SCREEN POSITIVE (NEGATIVE)
[2017-05-24 19:41] LABS: ANA TITER 1:40 titer
[2017-05-24 20:08] VITALS: BP 113/59; RESP 20
[2017-05-24 20:37] VITALS: BP 100/56; RESP 18
[2017-05-25 05:57] LABS: ABNORMAL IP MESSAGE 1; HEMATOCRIT 33.3 % (37.0-47.0); HEMOGLOBIN 11.7 g/dl (12.0-16.0); MEAN CORPUSCULAR HEMOGLOBIN 31.5 pg (29.0-33.0); MEAN CORPUSCULAR HGB CONC 35.1 g/dl (32.0-37.0); MEAN CORPUSCULAR VOLUME 89.5 fl (82.0-101.0); MEAN PLATELET VOLUME 12.1 fl (7.4-10.4); PLATELET COUNT 173 10^3/UL (140-415); RED BLOOD COUNT 3.72 10^6/ul (4.20-5.40); WHITE BLOOD COUNT 4.7 10^3/ul (4.8-10.8)
[2017-05-25] MEDS: PANTOPRAZOLE (EC) 40 MG TAB PO SCH (06:09)
[2017-05-25] MEDS: metroNIDAZOLE 500 MG TAB PO SCH (06:09)
[2017-05-25] MEDS: SOD CHLORIDE 0.9% IVPB SCH (06:09)
[2017-05-25] MEDS: ACYCLOVIR IVPB SCH (06:09)
[2017-05-25] MEDS: SOD CHLORIDE 0.9% 1,000 ML IV SCH (06:13)
[2017-05-25 06:26] LABS: CALCIUM 8.6 mg/dl (8.4-10.2); CREATININE 0.62 mg/dl (0.44-1.00); MAGNESIUM 1.9 mg/dl (1.7-2.5); PHOSPHORUS 2.8 mg/dl (2.5-4.9); POTASSIUM 3.4 mmol/L (3.5-5.1)
[2017-05-25 06:29] LABS: POSITIVE DIFF @See below
[2017-05-25 08:00] VITALS: BP 115/69; RESP 17
[2017-05-25] MEDS: FOLIC ACID 1 MG TAB PO SCH (09:44)
[2017-05-25] MEDS: ESCITALOPRAM 10 MG TAB PO SCH (09:44)
[2017-05-25] MEDS: FLUCONAZOLE 100 MG TAB PO SCH (09:44)
[2017-05-25] MEDS: DOCUSATE SODIUM 100 MG CAP PO SCH (09:44)
[2017-05-25] MEDS: NYSTATIN SUSP 5 ML CUP PO SCH ×2 (09:45→12:04)
[2017-05-25] MEDS: SUCRALFATE (100 MG/ML) 10ML CUP GTB SCH ×2 (09:45→12:03)
[2017-05-25] MEDS: CYANOCOBALAMIN 1000 MCG INJ IM SCH (09:45)
[2017-05-25 09:54] LABS: METAMYELOCYTES %M 2 % (0-0); MONOCYTES % (M) 6 % (0-11); MYELOCYTES % (M) 1 % (0-0); PLASMA CELLS #M 0.3 10^3/ul (0.0-0.0); PLASMAC%(M) 7 % (0); PLATELET ESTIMATE NORMAL; POLYCHROMASIA 1+ (0-0)
--- NOTE | 2017-05-25 10:29 | PN ---
Date/Time of Note Date/Time of Note DATE: 05/25/17 TIME: 10:28 Assessment/Plan VTE Prophylaxis VTE Prophylaxis Intervention: SCD's Lines/Catheters IV Catheter Type (from [facility]): Peripheral IV Urinary Cath still in place: No Assessment/Plan Chief Complaint/Hosp Course Chief Complaint/Hosp Course Assessment: Abdominal pain - Resolved Status post EGD 05/19/17 Impression: Severe erosive esophagitis. 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 Rule out H. pylori infection- negative Otherwise normal EGD. Leukopenia/trending up CT scan: Splenomegaly and prominent inguinal lymph nodes Vaginal spotting/bacterial vaginosis Oral thrush Trichotillomania Depression/anxiety disorder Plan: Continue Diflucan 100 mg daily for a total of 7 days Review pathology discussed with patient Will change acyclovir to po 400mg TID - again continue for a total of 10 days Tolerating diet well Continue PPI and Carafate therapy Patient seen in collaboration with Dr. Grigsby Subjective: Patient is feeling ok today, enc po intake, she states improvement of thrush, we will continue current GI regimen, Changed Iv acyclovir to PO. Pt states has not had a BM will start Miralax PRN PHYSICAL EXAMINATION: GENERAL: Pale appearing, alert & oriented x 3, in no acute distress SKIN: No lesions, pale, no stigmata chronic liver disease, no evidence of bleeding diathesis, multiple oral lesions LYMPHATIC: No palpable lymphadenopathy. HEAD: Normocephalic, atraumatic, no tenderness. Multiple bald spots due to pulling the hair. Wearing a hat. EYES: Pupils equal reactive to light and accommodation, full extraocular movements, sclera clear, non-icteric, no discharge. EARS/NOSE AND THROAT: Ears normal, nose normal, oropharynx normal, oral membranes well hydrated without lesions. NECK: Supple, no masses, thyroid normal. CHEST: Inspection within normal limits. CARDIOVASCULAR: Heart: Regular rate and rhythm. RESPIRATORY: Lungs clear to auscultation and percussion, no wheezing, no rubs GASTROINTESTINAL AND LIVER: Abdomen: Soft, no tenderness, non-distended, no hernias, no masses, no organomegaly, no ascites, guarding present, no rebound tenderness, normoactive bowel sounds. Rectal: Deferred. GENITOURINARY: Female genitalia within normal limits. EXTREMITIES: No cyanosis, clubbing or edema. Problems: Exam/Review of Systems Vital Signs Vitals Vital Signs Date Time Temp Pulse Resp B/P Pulse Ox O2 Delivery O2 Flow Rate FiO2 05/25/17 08:00 98.0 59 17 115/69 98 Intake and Output 05/24/17 05/24/17 05/25/17 15:00 23:00 07:00 Intake Total 540 ml 1110 ml 1550 ml Output Total 1000 ml 750 ml Balance 540 ml 110 ml 800 ml Results Result Diagram: 05/25/17 0506 05/25/17 0506 Results 24 hrs Laboratory Tests Test 05/24/17 14:14 05/25/17 05:06 Activated Partial Thromboplast Time 31.8 Mix PTT Normal Plasma Immediate Mix PTT Normal Plasma 1 Hour White Blood Count 4.7 L Red Blood Count 3.72 L Hemoglobin 11.7 L Hematocrit 33.3 L Mean Corpuscular Volume 89.5 Mean Corpuscular Hemoglobin 31.5 Mean Corpuscular Hemoglobin Concent 35.1 Red Cell Distribution Width 12.0 Platelet Count 173 Mean Platelet Volume 12.1 H Neutrophils % Segmented Neutrophils % (Manual) 39 Band Neutrophils % (Manual) 3 Lymphocytes % Lymphocytes % (Manual) 42 Monocytes % Monocytes % (Manual) 6 Eosinophils % Basophils % Metamyelocytes % (manual) 2 H Myelocytes % (Manual) 1 H Plasma Cells % (manual) 7 Nucleated Red Blood Cells % 0.0 Neutrophils # Neutrophils # (Manual) 1.8 Band Neutrophils # 0.1 Absolute Lymphocytes (Manual) 1.9 Lymphocytes # Monocytes # Absolute Monocytes (Manual) 0.2 L Eosinophils # Basophils # Metamyelocytes # 0.0 Myelocytes # 0.0 Plasma Cells # (manual) 0.3 H Nucleated Red Blood Cells # Platelet Estimate NORMAL Polychromasia 1+ Sodium Level 142 Potassium Level 3.4 L Chloride Level 107 Carbon Dioxide Level 26 Anion Gap 12 Blood Urea Nitrogen 6 L Creatinine 0.62 Glucose Level 96 Calcium Level 8.6 Phosphorus Level 2.8 Magnesium Level 1.9 Albumin 3.0 L Medications Medications Current Medications Acetaminophen/ Hydrocodone Bitart ([place] (5/325)) 1 tab Q6H PRN PO pain Last administered on 05/17/17 09:15; Admin Dose 1 TAB; Start 05/16/17 at 14:30 Docusate Sodium (Colace) 100 mg BID PO Last administered on 05/25/17 09:44; Admin Dose 100 MG; Start 05/16/17 at 21:00 Ondansetron HCl (Zofran Inj) 4 mg Q4H PRN IV NAUSEA AND/OR VOMITING Last administered on 05/24/17 11:25; Admin Dose 4 MG; Start 05/17/17 at 02:00 Acetaminophen 650 mg 650 mg Q8H PRN PO PAIN AND OR ELEVATED TEMP Last administered on 05/17/17 13:21; Admin Dose 650 MG; Start 05/17/17 at 02:30 Sodium Chloride (NS) 1,000 ml @ 70 mls/hr [id number] IV Last administered on 06:13; Admin Dose 70 MLS/HR; Start 05/17/17 at 07:30 Morphine Sulfate (morphine) 6 mg Q4H PRN PO PAIN LEVEL 6-10 Last administered on 05/21/17 17:54; Admin Dose 6 MG; Start 05/18/17 at 16:00 Fluconazole (Diflucan) 100 mg DAILY PO Last administered on 05/25/17 09:44; Admin Dose 100 MG; Start 05/19/17 at 18:30; Stop 05/26/17 at 08:59 Cyanocobalamin (Vitamin B12 Inj) 1,000 mcg DAILY IM Last administered on 09:45; Admin Dose 1,000 MCG; Start 05/20/17 at 10:00 Metronidazole (Flagyl) 500 mg Q8 PO Last administered on 05/25/17 06:09; Admin Dose 500 MG; Start 05/20/17 at 14:00; Stop 05/25/17 at 13:59 Sucralfate (Carafate Susp) 1 gm QID GTB Last administered on 05/25/17 09:45; Admin Dose 1 GM; Start 05/20/17 at 17:00 Nystatin (Nystatin Susp) 5 ml QID PO Last administered on 05/25/17 09:45; Admin Dose 5 ML; Start 05/21/17 at 17:00 Escitalopram Oxalate (Lexapro) 10 mg DAILY PO Last administered on 05/25/17 09:44; Admin Dose 10 MG; Start 05/22/17 at 12:30 Simethicone 80 mg 80 mg Q6 PRN GTB DISTENSION/GAS/BLOATING; Start 05/22/17 at 13:00 Acyclovir/Sodium Chloride (Zovirax/NS) 100 ml @ 100 mls/hr Q8 IVPB Last administered on 05/25/17 06:09; Admin Dose 100 MLS/HR; Start 05/22/17 at 22: 00; Stop 06/01/17 at 09:00 Folic Acid (Folic Acid) 1 mg DAILY PO Last administered on 05/25/17 09:44; Admin Dose 1 MG; Start 05/23/17 at 09:00 Alprazolam (Xanax) 0.5 mg TID PRN PO ANXIETY Last administered on 05/23/17 21 :25; Admin Dose 0.5 MG; Start 05/22/17 at 22:00 Pantoprazole (Protonix Tab) 40 mg DAILY@06 PO Last administered on 05/25/17 06:09; Admin Dose 40 MG; Start 05/24/17 at 06:00 BERTRAM FLORIAN May 25, 2017 10:29
[2017-05-25] MEDS ORDERED: POLYETHYLENE GLYCOL 17 GM PACKET NGT PRN (11:00)
--- NOTE | 2017-05-25 12:37 | PN ---
Date/Time of Note Date/Time of Note DATE: 05/25/17 TIME: 12:34 Assessment/Plan VTE Prophylaxis VTE Prophylaxis Intervention: ambulation Lines/Catheters IV [facility] Peripheral IV Urinary Cath still in place: No Assessment/Plan Chief Complaint/Hosp Course 21 yo woman with presentation to ER because of abdominal pain. She was found to have pancytopenia and urinary tract infection. She also had been started about two months ago on Prozac, which helped her psychiatric issues but she denies any blood counts as outpatient. Last CBC's were in November and June in the ER. She also is aware of ovarian cysts but overall she describes herself as a healthy young woman. She denies taking any drugs beside Prozac. She does use marijuana but denies use of needles or other recreational drugs. There are no known drug allergies. Father is not aware of anything else but he says she often does not listen to him. Problems: Assessment/Plan Pt is doing better. Thrombocytopenia is gone. WBC is almost back to normal. Continue to treat her infections. Anticipate discharge soon. I also emphasized to her that she should get outpatient f/u to be sure that all of her various problems are fully resolved. Subjective 24 Hr Interval Summary Free Text/Dictation Pt feels better and is eating better. Exam/Review of Systems Vital Signs Vitals Vital Signs Date Time Temp Pulse Resp B/P Pulse Ox O2 Delivery O2 Flow Rate FiO2 05/25/17 08:00 98.0 59 17 115/69 98 Intake and Output 05/24/17 05/24/17 05/25/17 15:00 23:00 07:00 Intake Total 540 ml 1110 ml 1550 ml Output Total 1000 ml 750 ml Balance 540 ml 110 ml 800 ml Exam Constitutional: alert, oriented Psych: no complaints Head: normocephalic Eyes: nl conjunctiva ENMT: nl external ears & nose Neck: supple Respiratory: clear to auscultation Cardiovascular: regular rate and rhythm Gastrointestinal: non-tender, soft Results Result Diagram: 05/25/17 0506 05/25/17 0506 Results 24 hrs Laboratory Tests Test 05/24/17 14:14 05/25/17 05:06 Activated Partial Thromboplast Time 31.8 Mix PTT Normal Plasma Immediate Mix PTT Normal Plasma 1 Hour White Blood Count 4.7 L Red Blood Count 3.72 L Hemoglobin 11.7 L Hematocrit 33.3 L Mean Corpuscular Volume 89.5 Mean Corpuscular Hemoglobin 31.5 Mean Corpuscular Hemoglobin Concent 35.1 Red Cell Distribution Width 12.0 Platelet Count 173 Mean Platelet Volume 12.1 H Neutrophils % Segmented Neutrophils % (Manual) 39 Band Neutrophils % (Manual) 3 Lymphocytes % Lymphocytes % (Manual) 42 Monocytes % Monocytes % (Manual) 6 Eosinophils % Basophils % Metamyelocytes % (manual) 2 H Myelocytes % (Manual) 1 H Plasma Cells % (manual) 7 Nucleated Red Blood Cells % 0.0 Neutrophils # Neutrophils # (Manual) 1.8 Band Neutrophils # 0.1 Absolute Lymphocytes (Manual) 1.9 Lymphocytes # Monocytes # Absolute Monocytes (Manual) 0.2 L Eosinophils # Basophils # Metamyelocytes # 0.0 Myelocytes # 0.0 Plasma Cells # (manual) 0.3 H Nucleated Red Blood Cells # Platelet Estimate NORMAL Polychromasia 1+ Sodium Level 142 Potassium Level 3.4 L Chloride Level 107 Carbon Dioxide Level 26 Anion Gap 12 Blood Urea Nitrogen 6 L Creatinine 0.62 Glucose Level 96 Calcium Level 8.6 Phosphorus Level 2.8 Magnesium Level 1.9 Albumin 3.0 L Medications Medications Current Medications Acetaminophen/ Hydrocodone Bitart ([place] (5/325)) 1 tab Q6H PRN PO pain Last administered on 05/17/17 09:15; Admin Dose 1 TAB; Start 05/16/17 at 14:30 Docusate Sodium (Colace) 100 mg BID PO Last administered on 05/25/17 09:44; Admin Dose 100 MG; Start 05/16/17 at 21:00 Ondansetron HCl (Zofran Inj) 4 mg Q4H PRN IV NAUSEA AND/OR VOMITING Last administered on 05/24/17 11:25; Admin Dose 4 MG; Start 05/17/17 at 02:00 Acetaminophen 650 mg 650 mg Q8H PRN PO PAIN AND OR ELEVATED TEMP Last administered on 05/17/17 13:21; Admin Dose 650 MG; Start 05/17/17 at 02:30 Sodium Chloride (NS) 1,000 ml @ 70 mls/hr [id number] IV Last administered on 06:13; Admin Dose 70 MLS/HR; Start 05/17/17 at 07:30 Morphine Sulfate (morphine) 6 mg Q4H PRN PO PAIN LEVEL 6-10 Last administered on 05/21/17 17:54; Admin Dose 6 MG; Start 05/18/17 at 16:00 Fluconazole (Diflucan) 100 mg DAILY PO Last administered on 05/25/17 09:44; Admin Dose 100 MG; Start 05/19/17 at 18:30; Stop 05/26/17 at 08:59 Cyanocobalamin (Vitamin B12 Inj) 1,000 mcg DAILY IM Last administered on 09:45; Admin Dose 1,000 MCG; Start 05/20/17 at 10:00 Metronidazole (Flagyl) 500 mg Q8 PO Last administered on 05/25/17 06:09; Admin Dose 500 MG; Start 05/20/17 at 14:00; Stop 05/25/17 at 13:59 Sucralfate (Carafate Susp) 1 gm QID GTB Last administered on 05/25/17 12:03; Admin Dose 1 GM; Start 05/20/17 at 17:00 Nystatin (Nystatin Susp) 5 ml QID PO Last administered on 05/25/17 09:45; Admin Dose 5 ML; Start 05/21/17 at 17:00 Escitalopram Oxalate (Lexapro) 10 mg DAILY PO Last administered on 05/25/17 09:44; Admin Dose 10 MG; Start 05/22/17 at 12:30 Simethicone (Mylicon) 80 mg Q6 PRN GTB DISTENSION/GAS/BLOATING; Start at 13:00 Folic Acid (Folic Acid) 1 mg DAILY PO Last administered on 05/25/17 09:44; Admin Dose 1 MG; Start 05/23/17 at 09:00 Alprazolam (Xanax) 0.5 mg TID PRN PO ANXIETY Last administered on 05/23/17 21 :25; Admin Dose 0.5 MG; Start 05/22/17 at 22:00 Pantoprazole (Protonix Tab) 40 mg DAILY@06 PO Last administered on 05/25/17 06:09; Admin Dose 40 MG; Start 05/24/17 at 06:00 Acyclovir (Zovirax) 400 mg TID PO Last administered on 05/25/17 12:03; Admin Dose 400 MG; Start 05/25/17 at 13:00; Stop 06/01/17 at 17:00 Polyethylene Glycol (Miralax) 17 gm DAILY PRN NGT CONSTIPATION; Start at 11:00 SHANAE REICH MD May 25, 2017 12:37
[2017-05-25] MEDS ORDERED: ACYCLOVIR 400 MG TAB PO SCH (13:00)
[2017-05-25 14:00] VITALS: BP 111/62; RESP 17
[2017-05-25 14:02] LABS: ANA SCREEN NEGATIVE (NEGATIVE)
[2017-05-25] MEDS ORDERED: POTASSIUM CHLORIDE (SR) 20 MEQ TAB PO STA (14:23)
--- NOTE | 2017-05-25 14:25 | PDOCDIS ---
Discharge Instructions CONDITION Patient Condition: Stable HOME CARE INSTRUCTIONS: Special Diet: regular ACTIVITY: Activity Restrictions: Slowly Increase Activity Rest between Activity Do not operate Machinery Do not operate Power Tool FOLLOW UP/APPOINTMENTS Follow-up Plan Please take your medications as prescribed, see your hematology oncology doctor in the clinic in the next few days and your primary care doctor as well. OLAYINKA SKY May 25, 2017 14:25
[2017-05-25] MEDS ORDERED: CYAN100092 IM (14:28)
[2017-05-25] MEDS ORDERED: FLUC100T PO (14:28)
[2017-05-25] MEDS ORDERED: FOLI-49 PO (14:28)
[2017-05-25] MEDS ORDERED: ACYC400T2 PO (14:28)
[2017-05-25] MEDS ORDERED: CARAS GTB (14:28)
[2017-05-25] MEDS ORDERED: MYL80 GTB (14:28)
[2017-05-25] MEDS ORDERED: ESCI10TA48 PO (14:28)
--- NOTE | 2017-05-25 14:36 | DS ---
Date/Time of Note Date/Time of Note DATE: 05/25/17 TIME: 14:31 Discharge Summary Admission/Discharge Info Admit Date/Time May 16, 2017 at 13:18 Discharge Date/Time Discharge Diagnosis 1. 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 2. 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 Symptomatic Gardnerella vaginalis urinary tract infection -On treatment. 4. Depression, chronic - Psych evaluation appreciated - Continue on Lexapro Patient Condition: Stable Procedures Status post EGD 05/19/17 Impression: Severe erosive esophagitis. 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 Rule out H. pylori infection- negative Otherwise normal EGD. Hospital Course 21-year-old female with past medical history only of depression recently started on Prozac about 2 months ago who presents to emergency room today with a 2-3 day history of not feeling well. Patient reports significant lethargy, subjective fevers, chills, nausea without vomiting. She has also been having some dysuria. She however denies hematuria, denies hematochezia or diarrhea, denies flank pain. Preliminary emergency room evaluation revealed significant neutropenia as well as some thrombocytopenia, and patient admitted for further workup. Also patient had been noted to have a fever of 103 in the emergency room. So she was admitted, seen by GI and hematology oncology teams during this hospital stay. She was found with a few different problems, including oral thrush, which improved with nystatin. She was also found with thrombocytopenia and neutropenia as mentioned above, and hematology oncology team perform workup for possible leukemia, since there was presumed family history of this. 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 This was found on biopsy that was performed when patient had EGD performed and the results are listed below. So patient was treated for her erosive esophagitis, and also placed on Carafate. She started on acyclovir for her HSV. Over the course of her hospital stay her blood work was monitored very carefully, and her thrombocytopenia and leukopenia resolved. She was able to ambulate, tolerated p.o. diet, she was also treated for Gardnerella UTI. Her anemia and thrombocytopenia, specifically her neutropenia and thrombus cytopenia appeared to be related to both vitamin B12 deficiency on the basis of pernicious anemia as well as bone marrow suppression due to the patient's herpetic esophagitis. After getting clearance from executive talent acquisition consultant teams, patient will be discharged today in improved condition. See below for full list of discharge medications. Assessment/Plan: 21-year-old female with past medical history only of depression recently started on Prozac about 2 months ago presented to the emergency room with generalized weakness, and dysuria who was found with pancytopenia with significant neutropenia requiring further hematology workup. Home Meds Active Scripts Folic Acid* (Folic Acid*) 1 Mg Tablet, 1 MG PO DAILY, #30 TAB 2 Refills Prov:ASYAOLAYINKA S. 05/25/17 Cyanocobalamin (Vitamin B-12) (Cyanocobalamin Injection) 1,000 Mcg/1 Ml Vial, 1000 MCG IM DAILY for 3 Days, #3 VIAL Prov:ASYAOLAYINKA S. 05/25/17 Sucralfate* (Carafate*) 1 Gm/10 Ml Susp, 1 GM GTB QID, #120 2 Refills Prov:ASYAOLAYINKA S. 05/25/17 Simethicone* (Mylicon*) 80 Mg Tab, 80 MG GTB Q6 Y for DISTENSION/GAS/BLOATING, # 60 TAB Prov:OLAYINKA SKY S. 05/25/17 Escitalopram Oxalate* (Escitalopram Oxalate*) 10 Mg Tablet, 10 MG PO DAILY, #30 TAB 2 Refills Prov:ASYAOLAYINKA S. 05/25/17 Fluconazole* (Diflucan*) 100 Mg Tablet, 100 MG PO DAILY for 1 Day, #1 TAB Prov:OLAYINKA SKY S. 05/25/17 Acyclovir* (Acyclovir*) 400 Mg Tablet, 400 MG PO TID, #21 TAB Prov:OLAYINKA SKY . 05/25/17 Ibuprofen* (Motrin*) 600 Mg Tab, 600 MG PO Q6, #15 TAB Prov:MARLINE SORIA NP 11/27/16 Hydrocodone/Acetaminophen ([place] 5-325 Tablet) 1 Each Tablet, 1 TAB PO Q6H Y for PAIN, #7 TAB Prov:MARLINE SORIA NP 11/27/16 Hydrocodone/Acetaminophen ([place] 5-325 Tablet) 1 Each Tablet, 1-2 TAB PO Q6H Y for PAIN, #20 TAB Prov:MAX PEACE PA-C 07/18/16 Follow-up Plan Please take your medications as prescribed, see your hematology oncology doctor in the clinic in the next few days and your primary care doctor as well. Primary Care Provider Care Physician No Primary Time spent on discharge: > 30 minutes Pending Labs Laboratory Tests Test 05/25/17 05:06 White Blood Count 4.710^3/ul (4.8-10.8) Red Blood Count 3.7210^6/ul (4.20-5.40) Hemoglobin 11.7g/dl (12.0-16.0) Hematocrit 33.3% (37.0-47.0) Mean Corpuscular Volume 89.5fl (82.0-101.0) Mean Corpuscular Hemoglobin 31.5pg (29.0-33.0) Mean Corpuscular Hemoglobin Concent 35.1g/dl (32.0-37.0) Red Cell Distribution Width 12.0% (11.5-14.5) Platelet Count 38543^3/UL (140-415) Mean Platelet Volume 12.1fl (7.4-10.4) Neutrophils % % (39.0-77.0) Segmented Neutrophils % (Manual) 39% (39-77) Band Neutrophils % (Manual) 3% (0-4) Lymphocytes % % (15.0-51.0) Lymphocytes % (Manual) 42% (15-51) Monocytes % % (0.0-11.0) Monocytes % (Manual) 6% (0-11) Eosinophils % % (0.0-7.0) Basophils % % (0.0-2.0) Metamyelocytes % (manual) 2% (0-0) Myelocytes % (Manual) 1% (0-0) Plasma Cells % (manual) 7% (0) Nucleated Red Blood Cells % 0.0/100WBC (0.0-0.0) Neutrophils # 10^3/ul (1.6-7.5) Neutrophils # (Manual) 1.810^3/ul (1.7-7.5) Band Neutrophils # 0.110^3/ul (0.0-0.6) Absolute Lymphocytes (Manual) 1.910^3/ul (0.8-2.9) Lymphocytes # 10^3/ul (0.8-2.9) Monocytes # 10^3/ul (0.3-0.9) Absolute Monocytes (Manual) 0.210^3/ul (0.3-0.9) Eosinophils # 10^3/ul (0.0-0.5) Basophils # 10^3/ul (0.0-0.1) Metamyelocytes # 0.010^3/ul (0.0-0.0) Myelocytes # 0.010^3/ul (0.0-0.0) Plasma Cells # (manual) 0.310^3/ul (0.0-0.0) Nucleated Red Blood Cells # 10^3/ul (0.0-0.0) Platelet Estimate NORMAL Polychromasia 1+ (0-0) Sodium Level 142mmol/L (135-144) Potassium Level 3.4mmol/L (3.5-5.1) Chloride Level 107mmol/L (97-110) Carbon Dioxide Level 26mmol/L (21-31) Anion Gap 12 (8-16) Blood Urea Nitrogen 6mg/dl (7-20) Creatinine 0.62mg/dl (0.44-1.00) Glucose Level 96mg/dl (70-220) Calcium Level 8.6mg/dl (8.4-10.2) Phosphorus Level 2.8mg/dl (2.5-4.9) Magnesium Level 1.9mg/dl (1.7-2.5) Albumin 3.0g/dl (3.3-4.9) OLAYINKA SKY. May 25, 2017 14:36
== END 2017-05-25 16:35 | disposition home or self-care (01) | DRG 809 ==
LOC: FTE 08:13 → MS1 13:18
PROVIDERS: ADMIT Family Medicine; ATTEND Family Medicine
PROC: 0DB68ZX Excision of Stomach, Via Natural or Artificial Opening Endoscopic, Diagnostic (ICD-10-PCS; 2017-05-19)
PROC: 0DB38ZX Excision of Lower Esophagus, Via Natural or Artificial Opening Endoscopic, Diagnostic (ICD-10-PCS; principal; 2017-05-19 21:00)
DX: D61.818 Other pancytopenia (principal); N39.0 Urinary tract infection, site not specified; B37.81 Candidal esophagitis; D69.6 Thrombocytopenia, unspecified; B37.0 Candidal stomatitis; D70.9 Neutropenia, unspecified; B00.89 Other herpesviral infection; K22.10 Ulcer of esophagus without bleeding; K29.70 Gastritis, unspecified, without bleeding; F32.9 Major depressive disorder, single episode, unspecified; F63.3 Trichotillomania; D50.0 Iron deficiency anemia secondary to blood loss (chronic); R10.2 Pelvic and perineal pain; N83.299 Other ovarian cyst, unspecified side; N76.0 Acute vaginitis; E87.6 Hypokalemia; D51.9 Vitamin B12 deficiency anemia, unspecified; Z88.0 Allergy status to penicillin
CPT/HCPCS: 71010; 74176; 74177; 76830; 76856; 80048; 80053; 80069; 80307; 81001; 82040; 82607; 82728; 82746; 82784; 83010; 83036; 83090; 83540; 83605; 83615; 83690; 83735; 83921; 84100; 84155; 84165; 84443; 84703; 85025; 85045; 85335; 85610; 85730; 86038; 86340; 86703; 86704; 86706; 86803; 87040; 87086; 87340; 87400; 87591; 88305; 88312; 88313; 96365; 96366; 96375; 96376; C9113; J0133; J1170; J1885; J1956; J2250; J2270; J2405; J2916; J3420; J3475; J7030; J7040; Q9967